=== PATIENT | male | born 1945 | race Caucasian/White ===

== ENCOUNTER 2023-07-11 14:12 | Observation (INO) | payer MEDICARE, SELFPAY ==
[2023-07-11] VITALS (73 sets, daily range): BP systolic 114–172; BP diastolic 53–132; PULSE 0–75; RESP 6–30; TEMP 35.8–36.5; O2SAT 96–98
--- NOTE | 2023-07-11 14:15 | RT.EKG_ITS ---
APPROVED REPORT Exam: Resting ECG Reason for Exam: ams Patient Location: E HR:53 bpm ECG Measurements Heart Rate 53 AXIS VT 181 P 36 QRSd 168 QRS -50 QT 496 T 66 QTc 465 Conclusion Sinus bradycardia LBBB no priors for comparison
--- NOTE | 2023-07-11 14:15 | DI.CT_ITS ---
Exam(s) CT ABDOMEN PELVIS W EXAM: CT ABDOMEN PELVIS W CLINICAL HISTORY: trauma. TECHNIQUE: Imaging Protocol: Axial computed tomography images with coronal and sagittal reformatted images were created and reviewed CONTRAST MATERIAL: Intravenous: Omnipaque 350 Contrast volume:100 ml Oral: no COMPARISON: No exams were available for comparison FINDINGS: ABDOMEN and PELVIS: Exam limited by motion. Lung Bases: Tiny right bilateral pleural effusions.. Basilar atelectasis. Liver: Mild fatty infiltration. No measurable mass. Heart is moderately. Coronary artery calcific ations. Enlarged. Gallbladder and biliary tract: No radiodense calculus or dilation. Pancreas: Normal density. No abnormal calcifications or inflammatory process. No evidence of mass. Spleen: Normal. Kidneys: Normal size, contour and axis. No radiodense stones. No obstructive uropathy. No suspicious masses seen. Adrenal glands: No masses seen. Vasculature: Abdominal aorta non-dilated. Moderate to severe atherosclerotic changes. Soft tissues: Unremarkable. Bladder: No posttraumatic abnormality. Wall thickening on the left side of the bladder. No calculi. Bowel: Moderate to increased stool. No obstruction. No bowel wall thickening. No evidence of appen dicitis. Peritoneal cavity: No ascites. No focal collection or mesenteric inflammatory response. Bones: Degenerative changes in the spine as well as mild scoliosis. No acute posttraumatic abnormali ty. Reproductive organs: Enlarged prostate. Lymph nodes: Unremarkable. IMPRESSION:: No acute posttraumatic abnormality. Focal wall thickening along left side of the bladder. Cystoscopy could be obtained for further evalu ation RADIATION DOSE DELIVERED: Total DLP DATA REPOSITORY: All CT scans at this facility are submitted to the National Radiology Data Registry (NRDR) Dose Index Registry (DIR) with the [employer] (ACR). RADIATION OPTIMIZATION: All CT scans at this facility use at least one of these dose optimization te chniques: automated exposure control; mA and/or kV adjustment per patient size (includes targeted exa ms where dose is matched to clinical indication); or iterative reconstruction.
--- NOTE | 2023-07-11 14:15 | DI.RAD_ITS ---
Exam(s) XR HIP PELVIS ADULT BL EXAM: XR HIP PELVIS ADULT BL CLINICAL HISTORY: trauma. TECHNIQUE: 2D digital imaging was performed. Three views. COMPARISON: CT CT ABDOMEN PELVIS W from 07/11/2023 FINDINGS: BONES: No acute fracture is present. No bony destructive lesion is seen. JOINTS: No dislocation present. SOFT TISSUE: Wrist within bladder in lower ureters related to recent CT. IMPRESSION: no acute abnormality. DATA REPOSITORY: RADIATION DOSE DELIVERED:
--- NOTE | 2023-07-11 14:19 | DI.CT_ITS ---
Exam(s) CT HEAD CERVICAL SPINE WO EXAM: CT HEAD CERVICAL SPINE WO CLINICAL HISTORY: trauma. TECHNIQUE: Imaging Protocol: Axial computed tomography images with coronal and sagittal reformatted images were created and reviewed COMPARISON: No exams were available for comparison FINDINGS: Head CT Ventricles and Extra axial spaces: Normal in size and morphology for the patient's age. Hemorrhage: None. Cerebral parenchyma: No evidence of mass or acute infarct. White matter changes of small vessel di sease. Mild atrophy. Midline shift: None. Brainstem/Cerebellum: Normal. Calvarium: Normal. Visualized Paranasal sinuses/Mastoids: Clear. Soft tissues: Unremarkable. Cervical Spine CT BONES: Vertebral body heights are maintained. Alignment is normal. There is no evidence of acute frac ture. Degenerative disc changes and facet degenerative changes are seen . SOFT TISSUES: No paraspinal hematoma. The airway appears intact. No pneumothorax is seen at the lung apices. IMPRESSION: Head CT: No acute abnormality. C-spine CT: Degenerative changes, no acute abnormality. RADIATION DOSE DELIVERED: Total DLP DATA REPOSITORY: All CT scans at this facility are submitted to the National Radiology Data Registry (NRDR) Dose Index Registry (DIR) with the [employer] (ACR). RADIATION OPTIMIZATION: All CT scans at this facility use at least one of these dose optimization te chniques: automated exposure control; mA and/or kV adjustment per patient size (includes targeted exa ms where dose is matched to clinical indication); or iterative reconstruction.
--- NOTE | 2023-07-11 14:21 | W.ED.GENAD ---
Discharge Plan Discharge Details Chief Complaint: Fall/Non TraumaCriteria Primary Care Provider: Unknown,Unknown ED Provider: Shantal Taylor Home Meds and New Rx's Prescriptions: No Action atorvastatin 20 mg tablet 20 mg PO DAILY metoprolol succinate 100 mg capsule,sprinkle,ER 24hr 100 mg PO DAILY pramipexole 0.25 mg tablet 0.25 mg PO DAILY divalproex [Depakote] 500 mg tablet,delayed release (DR/EC) 500 mg PO BID divalproex [Depakote] 250 mg tablet,delayed release (DR/EC) 250 mg PO BID amlodipine 5 mg tablet 5 mg PO DAILY quetiapine [Seroquel] 100 mg tablet 100 mg PO BID clopidogrel [Plavix] 75 MG tablet 75 mg PO DAILY Patient Comments: 09/07/16-RX'D BY DR HUGHES. aspirin [Aspir-81] 81 MG tablet,delayed release (DR/EC) 81 mg PO DAILY acetaminophen 325 MG capsule 325 mg PO Q4H PRN Medical Decision Making Emergent evaluation of altered mental status. Patient has dementia and is unable to provide any additional information. I have spoken with the who is very concerned that his status is changed significantly over the last few days. He has obvious signs of trauma on exam. Initial concerns include intracranial process, metabolic derangement, infectious etiology. We will get blood work, CT imaging to evaluate. 1450: nurses reporting clotting issue with blood draws from IV 1750: CT imaging including is unremarkable for any acute traumatic process. Urinalysis is unremarkable for infection. The patient does have some new thrombocytopenia. At this time unable to assess the patient's gait as he is not directable and is not following commands. The report from the facility is that he is not safely ambulatory. Given that his worsening of status, it is not safe to send the patient back to the facility. will admit to the hospital. Medical Records Medical records reviewed: Yes I reviewed the patient's medical records. Lab Data Lab results reviewed: Yes I reviewed the patient's lab results. ECG Data Attestation: I personally reviewed and interpreted this ECG (s) as follows: Prior ECG tracings: not available for review Interpretation: sinus yosef LBBB, no prior for comparison HPI General Date/Time Provider Initiated Documentation: 07/11/23 14:18. HPI Narrative: 77-year-old gentleman with past medical history of frontotemporal dementia presents for evaluation of altered mental status from his halfway. Patient has dementia, but at baseline is ambulatory and oriented. He was seen on by his who reports that at that time he seemed to be very confused and not himself. The home reports that he is normally ambulatory, but for the last few days he has only been able to walk with a walker. Today he is unable to walk at all. He fell last night. This was an unwitnessed fall. But they did notice bruising today. Related Data Home Medications Medication Instructions Recorded Confirmed clopidogrel 75 mg tablet (Plavix) 75 mg PO DAILY 09/18/16 07/11/23 aspirin 81 mg tablet,delayed 81 mg PO DAILY 12/08/16 07/11/23 release (Aspir-) acetaminophen 325 mg capsule 325 mg PO Q4H PRN 05/19/17 07/11/23 amlodipine 5 mg tablet 5 mg PO DAILY 06/11/23 07/11/23 atorvastatin 20 mg tablet 20 mg PO DAILY 06/11/23 07/11/23 divalproex 250 mg tablet,delayed 250 mg PO BID 06/11/23 07/11/23 release (Depakote) divalproex 500 mg tablet,delayed 500 mg PO BID 06/11/23 07/11/23 release (Depakote) metoprolol succinate 100 mg 100 mg PO DAILY 06/11/23 07/11/23 capsule sprinkle, ext. 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 Recurrent major depressive disorder RLS (restless legs syndrome) Hearing loss Insomnia Hypothyroidism Hypertension Mixed hyperlipidemia History of behavioral and mental health problems Abnormal EKG Left bundle-branch block Family history of prostate cancer Acute hyponatremia Hypomania Surgical History Vasectomy Stent placement 09/10/16-[facility] Arthroplasty of knee right Appendectomy Family History Mother Diabetes Essential hypertension Father Diabetes Neoplasm PROSTATE Sister Diabetes Neoplasm MULTI-MYELOMA Sister Diabetes Essential hypertension Sister No problems noted. Brother Heart disease Grandfather Neoplasm STOMACH Grandfather Ruptured appendix Grandmother No problems noted. Grandmother No problems noted. Daughter No problems noted. Daughter No problems noted. Social History Smoking/Tobacco Use Status: Former Tobacco Use Smoking risk assessment performed?: Yes Alcohol Intake: former Drug use: Current Sobriety Substance use type: does not use Housing: assisted living facility Do you feel safe in your relationship?: Yes Exam Narrative Exam Narrative: Review of Systems: All systems reviewed & are unremarkable except as noted in HPI and below: CONSTITUTIONAL: Alert , difficulty with following simple commands Well-developed HEENT: Bruising to the left forehead noted, no skull deformity EYES: PERRL, no conjunctival injection EARS: no external abnormality NOSE nares patent MOUTH Moist MM NECK: Symmetric, trachea midline, No thyromegaly THROAT oropharynx clear CVS: RRR, No murmurs or gallops. Peripheral pulses 2+ and equal in all extremities Brisk capillary refill in all extremities. No peripheral edema Right chest wall with bruising around the areola, no crepitus appreciated RESP: Unlabored respiratory effort, Clear to auscultation bilaterally No wheezes rales or rhonchi GI: Soft, Nontender, Nondistended, No organomegaly MSK: Extremities with full range of motion, no deformity or TTP Right scapular area with 3 x 3 area of abrasion and contusion SKIN: Warm, Dry. No rashes or lesions. NEURO: No focal neurologic deficits. 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
[2023-07-11 14:54] LABS: Ammonia 12 umol/L (11-32)
[2023-07-11 15:04] LABS: ALT 58 U/L (16-63); AST 59 U/L (15-37); Albumin 3.4 g/dL (3.4-5.0); Alkaline Phosphatase 102 U/L (46-116); Anion Gap 6.7 mmol/L (3-11); BUN 40 mg/dL (7-18); Bilirubin, Total 0.8 mg/dL (0.2-1.0); CO2 27.3 mmol/L (21.0-32.0); CREATININE 1.7 mg/dL (0.70-1.30); Calcium 9.3 mg/dL (8.5-10.1); Chloride 101 mmol/L (98-107); Estimated GFR 41.01 (mL/min/1.73m2); Glucose 102 mg/dL (74-106); Magnesium 2.5 mg/dL (1.8-2.4); Potassium 4.5 mmol/L (3.5-5.1); Sodium 135 mmol/L (136-145); TSH (W/Ref FT4) 3.58 uIU/mL (0.36-3.74); Total Protein 7.6 g/dL (6.4-8.2); Troponin I < 50 ng/L (<or=60)
[2023-07-11 15:21] LABS: Abs Immature Grans 0.04 10^3/uL (0.0-0.06); Absolute Basophil Count 0.01 10^3/uL (0.0-0.2); Absolute Eosinophil Count 0.11 10^3/uL (0.0-0.7); Absolute Lymphocyte Count 1.65 10^3/uL (1.2-3.4); Absolute Monocyte Count 1.76 10^3/uL (0.1-0.8); Absolute Neutrophil Count 4.47 10^3/uL (1.2-6.7); Basophils % 0.1; Eosinophils % 1.4; HCT 39.5 % (40.0-50.0); HGB 13.2 g/dL (13.5-17.5); Immature Grans % 0.5; Lymphocytes % 20.5; MCH 31.1 pg (27.0-33.0); MCHC 33.4 % (32.0-36.0); MCV 93 fL (80-95); MPV 10.5 fL (8.0-11.0); Monocytes % 21.9; Neutrophils % 55.6; RBC 4.25 10^6/uL (4.36-5.78); RDW 13.4 % (11.8-14.1); RDW-SD 45.8 fL; WBC 8.04 10^3/uL (4.4-10.8)
--- NOTE | 2023-07-11 15:26 | NUR.NOTE ---
Nursing Note: Beatriz called and gave us permission to speak with PT's medicare specialist Skyla Aden. 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
[2023-07-11 15:34] LABS: INR 1.1 (0.9-1.1); Prothrombin Time 11.3 sec (9.1-11.1)
[2023-07-11 15:51] LABS: Diff Comment Agrees w/ Instrument; Platelet Count 87 10^3/uL (130-400); RBC Morphology Normal
[2023-07-11 16:31] LABS: Source Nasal/Nares
[2023-07-11] MEDS: Omnipaque 350 MG/ML 100 ML BTL IJ (16:34)
[2023-07-11] MEDS: Normal Saline - Diluent 50 ML VIAL IJ (16:35)
[2023-07-11 17:03] LABS: COVID-19 PCR Negative (Negative)
[2023-07-11] MEDS: Lidocaine 2% Jelly 11 ML SYR (17:15)
[2023-07-11 17:18] LABS: Bilirubin Negative (Negative); Blood Trace-intact (Negative); Clarity Clear (Clear); Glucose Negative (Negative); Ketones Trace mg/dL (Negative); Leukocyte Esterase Negative (Negative); Nitrite Negative (Negative); pH 5.5 (5-8)
--- NOTE | 2023-07-11 17:20 | DI.VRAD_ITS ---
PROCEDURE INFORMATION: Exam: CT Head Without Contrast Exam date and time: 07/11/2023 4:28 PM Age: 77 years old Clinical indication: Injury or trauma; Fall; Blunt trauma (contusions or hematomas) TECHNIQUE: Imaging protocol: Computed tomography of the head without contrast. COMPARISON: No relevant prior studies available. FINDINGS: Brain: There is diffuse cerebral atrophy concordant with the patient's age. Chronic small vessel deep white matter ischemic disease is suggested by areas of patchy white matter low attenuation. No intracranial hemorrhage. No acute large territory CVA. No mass. No acute edema. No acute intracranial abnormality. Cerebral ventricles: No ventriculomegaly. Paranasal sinuses: Visualized sinuses are unremarkable. No fluid levels. Mastoid air cells: Visualized mastoid air cells are well aerated. Bones/joints: Unremarkable. No acute fracture. Soft tissues: Unremarkable. IMPRESSION: 1. No acute intracranial abnormality. 2. Age-related atrophy and chronic small vessel deep white matter ischemic features. 3. No intracranial hemorrhage. 4. No skull fracture. PROCEDURE INFORMATION: Exam: CT Cervical Spine Without Contrast Exam date and time: 07/11/2023 4:28 PM Age: 77 years old Clinical indication: Injury or trauma; Fall; Blunt trauma (contusions or hematomas) TECHNIQUE: Imaging protocol: Computed tomography of the cervical spine without contrast. COMPARISON: CR CHEST 2 VIEWS PA,LAT 02/26/2017 5:05 PM FINDINGS: Bones/joints: No acute fracture. Straightening of the normal cervical lordosis. No subluxation. No significant disc bulge or herniation. No severe spinal canal stenosis. No significant neural foraminal narrowing. Lungs: Lung apices are normal. Soft tissues: Unremarkable. IMPRESSION: 1. No acute findings. 2. Multilevel degenerative disc and joint disease. No acute fracture or dislocation. Dictated and Authenticated by: Chin Walker MD. Ordering:[facility] Brandon Rosado MD
--- NOTE | 2023-07-11 17:26 | DI.VRAD_ITS ---
PROCEDURE INFORMATION: Exam: XR Pelvis Exam date and time: 07/11/2023 4:57 PM Age: 77 years old Clinical indication: Injury or trauma; Other: Unspecified; Blunt trauma (contusions or hematomas); Bilateral; Hip TECHNIQUE: Imaging protocol: Radiologic exam of the pelvis. Views: 3 or more views. COMPARISON: CT ABDOMEN PELVIS W 07/11/2023 4:45 PM FINDINGS: Bones/joints: Osteopenia. No acute fracture. No diastasis. Lower lumbar spine degenerative disease. No evidence of hip fracture or dislocation. Soft tissues: Soft tissues of the pelvic and hip regions are unremarkable. Organs: Urinary bladder contains contrast from an earlier CT. IMPRESSION: 1. No pelvic fracture or diastasis. 2. Degenerative lower lumbar spine disease. Dictated and Authenticated by: Chin Walker MD. Ordering:PAOLA Rosado MD
[2023-07-11 17:30] LABS: Bacteria Negative HPF (Negative); C & S Indicated? No; Casts 0-2 Hyaline LPF (Negative); Crystals Negative HPF (Negative); Epithelial Cells Rare HPF (Negative); Mucus Trace (Negative); WBC 0-2 HPF (0-5)
--- NOTE | 2023-07-11 17:32 | DI.VRAD_ITS ---
PROCEDURE INFORMATION: Exam: CT Abdomen And Pelvis With Contrast Exam date and time: 07/11/2023 4:45 PM Age: 77 years old Clinical indication: Injury or trauma; Fall and other: Unspecified; Blunt; Generalized TECHNIQUE: Imaging protocol: Computed tomography of the abdomen and pelvis with contrast. COMPARISON: CR CHEST 2 VIEWS PA,LAT 02/26/2017 5:05 PM FINDINGS: Lungs: Minor posterior bilateral lung base atelectasis. Pleural spaces: Bilateral small pleural effusions which are nonspecific in appearance. Attenuation coefficients suggests that these are simple fluid collections. Heart: Moderate cardiac enlargement. No pericardial effusion. Severe right coronary artery atherosclerotic calcium is visible. Liver: Diffuse moderate fatty liver infiltration. No focal hepatic lesions. Gallbladder and bile ducts: The gallbladder is normal in size and shape. No stones or inflammatory changes. Pancreas: The pancreas is normal in contour and attenuation. Spleen: The spleen is normal in size, contour and attenuation. Adrenal glands: The adrenal glands are normal in size and contour bilaterally. Kidneys and ureters: The kidneys bilaterally are unremarkable. Normal attenutation. No hydronephrosis. No calculi. Stomach and bowel: Gastric morphology is unremarkable. No edema. No gastric outlet obstruction.Small bowel loops are normal in course and caliber. There is no mucosal edema or bowel wall thickening. No obstructive features.The colon contains formed fecal material. There is no bowel wall thickening. No inflammatory features. No obstruction. Appendix: No evidence of appendicitis. Intraperitoneal space: No free fluid. No free air. Vasculature: Atherosclerotic aortoiliac calcium without acute features. Lymph nodes: Unremarkable. No enlarged lymph nodes. Urinary bladder: No acute features of the urinary bladder. There is asymmetric thickening of the left urinary bladder wall. See series 5: Image 746. Can not exclude a focal bladder wall irregularity or an neoplastic focus. This is 6 mm in thickness and 1.9 cm AP. A bladder ultrasound may be helpful. Correlation with urinalysis is recommended. Cystoscopy may ultimately be warranted. Reproductive: Moderate prostate enlargement. Recommend clinical correlation. Bones/joints: No acute skeletal changes. Bony pelvis is intact. Hips are unremarkable bilaterally. Degenerative lumbosacral spine features. No acute traumatic disruption. Multilevel lumbar moderate spinal stenosis. Soft tissues: Minor fat containing umbilical hernia. No acute change. Abdominal wall soft tissues without john hematoma, foreign body, or emphysema. IMPRESSION: 1. No acute findings within the abdomen or pelvis. 2. Bilateral minor simple pleural effusions. 3. Cardiomegaly. 4. Fatty liver. 5. Degenerative lumbosacral spine. 6. Asymmetric left urinary bladder wall focal thickening. Further workup is recommended. Correlation with urinalysis. Bladder ultrasound may be helpful. Cystoscopic evaluation may be warranted. Dictated and Authenticated by: Chin Walker MD. Ordering:PAOLA Rosado MD
[2023-07-11] MEDS: Atorvastatin 20 MG TAB PO (22:40)
[2023-07-11] MEDS: QUEtiapine 100 MG TAB PO (22:40)
[2023-07-11] MEDS: Divalproex 500 MG TABEC PO (22:45)
[2023-07-11] MEDS: Normal Saline Flush 10 ML SYR IVP (22:53)
[2023-07-11] MEDS: Divalproex 250 MG TABEC PO (23:04)
--- NOTE | 2023-07-11 23:23 | W.PM.HP.N ---
Date of service: 07/11/23 Time of Service: 23:23 Assessment and Plan Assessment and plan (1) Altered mental status: Start date: 07/11/23 Assessment and plan: This is a 77-year-old gentleman with chronic dementia who resides in a assisted presenting with increased falls and altered mental status. There is no obvious infection or other decompensation other than patient being dry. He will be observed overnight with IV hydration and have PT and OT evaluate for safety to return to the assisted. He may simply have progression of his disease. There is no obvious injury from his falls recently with imaging. He is a full code this may be readdressed with the . Qualifiers: Altered mental status type: delirium Qualified Code(s): R41.0 - Disorientation, unspecified (2) KERVIN (acute kidney injury): Start date: 07/11/23 Status: Acute Assessment and plan: Patient appears to be slightly dehydrated and will have IV hydration overnight with follow-up labs in the morning. Encourage oral intake. (3) Frontotemporal dementia: Status: Chronic Assessment and plan: Progressive disease with patient possibly now transitioning to higher level of care from the assisted if he is not improved with IV hydration. History of Present Illness History of Present Illness Chief Complaint: Increasing confusion with falls Narrative: This is a 77-year-old male patient who resides at a alf last seen by his 3 days prior to admission with increased confusion and not himself according to the . Patient not able to offer history. He is usually ambulatory without assistive devices but recent has been walking only with a walker and the day of admission was not working at all. He did fall the night prior to admission. In the ED evaluation was negative for any acute fractures but he did appear to be slightly dehydrated with increased creatinine from his baseline. He was admitted for IV hydration and observation with PT and OT to evaluate as to safety to return to the assisted. He is slightly agitated at times and fidgety but cooperative with one-on-one care. He is a full code. Review of Systems Narrative: 13 point review of systems otherwise unobtainable with patient dementia. [facility] All Active Problems (Updated 07/11/23 @ 23:44 by Osvaldo Santos) KERVIN (acute kidney injury) (Acute) 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) of both ears (Acute) Acute pericarditis (Acute ~1968) Medical History Impaired fasting glucose Intertrigo Right-sided chest pain Altered mental status Left arm pain Ventricular ectopy Atherosclerotic heart disease of [place] coronary artery without angina pectoris Recurrent major depressive disorder RLS (restless legs syndrome) Hearing loss Insomnia Hypothyroidism Hypertension Mixed hyperlipidemia History of behavioral and mental health problems Abnormal EKG Left bundle-branch block Family history of prostate cancer Acute hyponatremia Hypomania Surgical History Vasectomy Stent placement 09/10/16-[facility] Arthroplasty of knee right Appendectomy Family History Mother Diabetes Essential hypertension Father Diabetes Neoplasm PROSTATE Sister Diabetes Neoplasm MULTI-MYELOMA Sister Diabetes Essential hypertension Sister No problems noted. Brother Heart disease Grandfather Neoplasm STOMACH Grandfather Ruptured appendix Grandmother No problems noted. Grandmother No problems noted. Daughter No problems noted. Daughter No problems noted. Social History Smoking/Tobacco Use Status: Former Tobacco Use Smoking risk assessment performed?: Yes Alcohol Intake: former Drug use: Current Sobriety Substance use type: does not use Housing: assisted living facility Do you feel safe in your relationship?: Yes Meds Allergies and Home Medications Allergies Allergy/AdvReac Type Severity Reaction Status Date / Time No Known Allergies Allergy Unverified 07/11/23 14:25 Home Medications Medication Instructions Recorded Confirmed Type clopidogrel 75 mg tablet (Plavix) 75 mg PO DAILY 09/18/16 07/11/23 History aspirin 81 mg tablet,delayed 81 mg PO DAILY 12/08/16 07/11/23 History release (Aspir-) acetaminophen 325 mg capsule 325 mg PO Q4H PRN 05/19/17 07/11/23 History amlodipine 5 mg tablet 5 mg PO DAILY 06/11/23 07/11/23 History atorvastatin 20 mg tablet 20 mg PO DAILY 06/11/23 07/11/23 History divalproex 250 mg tablet,delayed 250 mg PO BID 10/20/23 11/19/23 History release (Depakote) divalproex 500 mg tablet,delayed 500 mg PO BID 06/11/23 07/11/23 History release (Depakote) metoprolol succinate 100 mg 100 mg PO DAILY 06/11/23 07/11/23 History capsule sprinkle, ext. release 24 hr pramipexole 0.25 mg tablet 0.25 mg PO DAILY 06/11/23 07/11/23 History quetiapine 100 mg tablet (Seroquel) 100 mg PO BID 07/06/23 07/11/23 History Exam Narrative Exam Narrative: General: Patient appears appropriate for age, cooperative and recognizes me as a physician. He is otherwise not oriented to person, place or time. He is in no acute distress. He is slightly fidgety. HEENT: Normocephalic, eyes pupils equal react light symmetrically, extraocular intact and sclera anicteric. Oropharynx with dry mucosa. Neck: Supple without JVD. Back: Normal posture without CVA tenderness. Lungs: Fair aeration clear to auscultation percussion. No focalizing rales or rhonchi. Abdomen: Scaphoid contour, soft nontender to palpation with no palpable hepatosplenomegaly. Bowel sounds positive all quadrants. Genitalia/rectal: Exam deferred. Extremities: Without clubbing, cyanosis or pitting edema. Peripheral pulses intact. Skin: Normal color, warm and dry. Neuro: Cranial nerves II through XII gross intact, no focal motor deficits. No tremor. Psych: Slightly agitated at times and fidgety otherwise normal affect and mood. No abnormal thought processes manifested to the patient at times has increased confusion and wanders in conversation. Remote and recent memory appear to be in deficit. Results Imaging Imaging Studies: Exam: XR Pelvis Exam date and time: 07/11/2023 4:57 PM Age: 77 years old Clinical indication: Injury or trauma; Other: Unspecified; Blunt trauma (contusions or hematomas); Bilateral; Hip TECHNIQUE: Imaging protocol: Radiologic exam of the pelvis. Views: 3 or more views. COMPARISON: CT ABDOMEN PELVIS W 07/11/2023 4:45 PM FINDINGS: Bones/joints: Osteopenia. No acute fracture. No diastasis. Lower lumbar spine degenerative disease. No evidence of hip fracture or dislocation. Soft tissues: Soft tissues of the pelvic and hip regions are unremarkable. Organs: Urinary bladder contains contrast from an earlier CT. IMPRESSION: 1. No pelvic fracture or diastasis. 2. Degenerative lower lumbar spine disease. Exam: CT Abdomen And Pelvis With Contrast Exam date and time: 07/11/2023 4:45 PM Age: 77 years old Clinical indication: Injury or trauma; Fall and other: Unspecified; Blunt; Generalized TECHNIQUE: Imaging protocol: Computed tomography of the abdomen and pelvis with contrast. COMPARISON: CR CHEST 2 VIEWS PA,LAT 02/26/2017 5:05 PM FINDINGS: Lungs: Minor posterior bilateral lung base atelectasis. Pleural spaces: Bilateral small pleural effusions which are nonspecific in appearance. Attenuation coefficients suggests that these are simple fluid collections. Heart: Moderate cardiac enlargement. No pericardial effusion. Severe right coronary artery atherosclerotic calcium is visible. Liver: Diffuse moderate fatty liver infiltration. No focal hepatic lesions. Gallbladder and bile ducts: The gallbladder is normal in size and shape. No stones or inflammatory changes. Pancreas: The pancreas is normal in contour and attenuation. Spleen: The spleen is normal in size, contour and attenuation. Adrenal glands: The adrenal glands are normal in size and contour bilaterally. Kidneys and ureters: The kidneys bilaterally are unremarkable. Normal attenutation. No hydronephrosis. No calculi. Stomach and bowel: Gastric morphology is unremarkable. No edema. No gastric outlet obstruction.Small bowel loops are normal in course and caliber. There is no mucosal edema or bowel wall thickening. No obstructive features.The colon contains formed fecal material. There is no bowel wall thickening. No inflammatory features. No obstruction. Appendix: No evidence of appendicitis. Intraperitoneal space: No free fluid. No free air. Vasculature: Atherosclerotic aortoiliac calcium without acute features. Lymph nodes: Unremarkable. No enlarged lymph nodes. Urinary bladder: No acute features of the urinary bladder. There is asymmetric thickening of the left urinary bladder wall. See series 5: Image 746. Can not exclude a focal bladder wall irregularity or an neoplastic focus. This is 6 mm in thickness and 1.9 cm AP. A bladder ultrasound may be helpful. Correlation with urinalysis is recommended. Cystoscopy may ultimately be warranted. Reproductive: Moderate prostate enlargement. Recommend clinical correlation. Bones/joints: No acute skeletal changes. Bony pelvis is intact. Hips are unremarkable bilaterally. Degenerative lumbosacral spine features. No acute traumatic disruption. Multilevel lumbar moderate spinal stenosis. Soft tissues: Minor fat containing umbilical hernia. No acute change. Abdominal wall soft tissues without john hematoma, foreign body, or emphysema. IMPRESSION: 1. No acute findings within the abdomen or pelvis. 2. Bilateral minor simple pleural effusions. 3. Cardiomegaly. 4. Fatty liver. 5. Degenerative lumbosacral spine. 6. Asymmetric left urinary bladder wall focal thickening. Further workup is recommended. Correlation with urinalysis. Bladder ultrasound may be helpful. Cystoscopic evaluation may be warranted. Exam: CT Head Without Contrast Exam date and time: 07/11/2023 4:28 PM Age: 77 years old Clinical indication: Injury or trauma; Fall; Blunt trauma (contusions or hematomas) TECHNIQUE: Imaging protocol: Computed tomography of the head without contrast. COMPARISON: No relevant prior studies available. FINDINGS: Brain: There is diffuse cerebral atrophy concordant with the patient's age. Chronic small vessel deep white matter ischemic disease is suggested by areas of patchy white matter low attenuation. No intracranial hemorrhage. No acute large territory CVA. No mass. No acute edema. No acute intracranial abnormality. Cerebral ventricles: No ventriculomegaly. Paranasal sinuses: Visualized sinuses are unremarkable. No fluid levels. Mastoid air cells: Visualized mastoid air cells are well aerated. Bones/joints: Unremarkable. No acute fracture. Soft tissues: Unremarkable. IMPRESSION: 1. No acute intracranial abnormality. 2. Age-related atrophy and chronic small vessel deep white matter ischemic features. 3. No intracranial hemorrhage. 4. No skull fracture. PROCEDURE INFORMATION: Exam: CT Cervical Spine Without Contrast Exam date and time: 07/11/2023 4:28 PM Age: 77 years old Clinical indication: Injury or trauma; Fall; Blunt trauma (contusions or hematomas) TECHNIQUE: Imaging protocol: Computed tomography of the cervical spine without contrast. COMPARISON: CR CHEST 2 VIEWS PA,LAT 02/26/2017 5:05 PM FINDINGS: Bones/joints: No acute fracture. Straightening of the normal cervical lordosis. No subluxation. No significant disc bulge or herniation. No severe spinal canal stenosis. No significant neural foraminal narrowing. Lungs: Lung apices are normal. Soft tissues: Unremarkable. IMPRESSION: 1. No acute findings. 2. Multilevel degenerative disc and joint disease. No acute fracture or dislocation. Labs 07/11/23 15:10 07/11/23 14:30 Labs: Laboratory Results - last 24 hr 07/11/23 07/11/23 07/11/23 14:18 14:30 15:10 WBC Cancelled 8.04 RBC Cancelled 4.25 L Hgb Cancelled 13.2 L Hct Cancelled 39.5 L MCV Cancelled 93 MCH Cancelled 31.1 MCHC Cancelled 33.4 RDW Cancelled 13.4 Plt Count Cancelled 87 L MPV Cancelled 10.5 Immature Gran % Cancelled 0.5 Neutrophils % Cancelled 55.6 Band Neutrophils % Cancelled Lymphocytes % Cancelled 20.5 Atypical Lymphs % Cancelled Monocytes % Cancelled 21.9 Eosinophils % Cancelled 1.4 Basophils % Cancelled 0.1 Metamyelocytes % Cancelled Myelocytes % Cancelled Promyelocytes % Cancelled Other Cells % Cancelled Nucleated RBC % Cancelled 0.0 Absolute Neutrophils Cancelled 4.47 Absolute Lymphocytes Cancelled 1.65 Absolute Monocytes Cancelled 1.76 H Absolute Eosinophils Cancelled 0.11 Absolute Basophils Cancelled 0.01 RBC Morphology Cancelled Normal Polychromasia Cancelled Hypochromasia Cancelled Poikilocytosis Cancelled Basophilic Stippling Cancelled Anisocytosis Cancelled Microcytosis Cancelled Macrocytosis Cancelled Spherocytes Cancelled Tear Drop Cells Cancelled Ovalocytes Cancelled Stomatocytes Cancelled Croft-Bettles Bodies Cancelled [place] Cells/Echinocytes Cancelled Acanthocytes (Spur) Cancelled Schistocytes Cancelled PT Cancelled 11.3 H INR Cancelled 1.1 Sodium 135 L Potassium 4.5 Chloride 101 Carbon Dioxide 27.3 Anion Gap 6.7 BUN 40 H Creatinine 1.7 H Est GFR (CKD-EPI 2020) 41.01 Glucose 102 Calcium 9.3 Magnesium 2.5 H Total Bilirubin 0.8 AST 59 H ALT 58 Alkaline Phosphatase 102 Ammonia 12 Troponin I < 50 Total Protein 7.6 Albumin 3.4 TSH Cancelled 3.58 Urine Color Urine Clarity Urine pH Ur Specific [place] Urine Protein Urine Ketones Urine Blood Urine Nitrite Urine Bilirubin Urine Urobilinogen Ur Leukocyte Esterase Urine RBC Urine WBC Ur Epithelial Cells Urine Crystals Urine Bacteria Urine Casts Urine Mucus Ur Culture Indicated? Urine Glucose COVID-19 Source SARS-CoV-2 (PCR) 07/11/23 07/11/23 16:27 17:12 WBC RBC Hgb Hct MCV MCH MCHC RDW Plt Count MPV Immature Gran % Neutrophils % Band Neutrophils % Lymphocytes % Atypical Lymphs % Monocytes % Eosinophils % Basophils % Metamyelocytes % Myelocytes % Promyelocytes % Other Cells % Nucleated RBC % Absolute Neutrophils Absolute Lymphocytes Absolute Monocytes Absolute Eosinophils Absolute Basophils RBC Morphology Polychromasia Hypochromasia Poikilocytosis Basophilic Stippling Anisocytosis Microcytosis Macrocytosis Spherocytes Tear Drop Cells Ovalocytes Stomatocytes Croft-Bettles Bodies Breonna Cells/Echinocytes Acanthocytes (Spur) Schistocytes PT INR Sodium Potassium Chloride Carbon Dioxide Anion Gap BUN Creatinine Est GFR (CKD-EPI 2020) Glucose Calcium Magnesium Total Bilirubin AST ALT Alkaline Phosphatase Ammonia Troponin I Total Protein Albumin TSH Urine Color Yellow Urine Clarity Clear Urine pH 5.5 Ur Specific [place] 1.020 Urine Protein Negative Urine Ketones Trace H Urine Blood Trace-intact H Urine Nitrite Negative Urine Bilirubin Negative Urine Urobilinogen 1.0 H Ur Leukocyte Esterase Negative Urine RBC 5-10 H Urine WBC 0-2 Ur Epithelial Cells Rare Urine Crystals Negative Urine Bacteria Negative Urine Casts 0-2 Hyaline Urine Mucus Trace Ur Culture Indicated? No Urine Glucose Negative COVID-19 Source Nasal/Nares SARS-CoV-2 (PCR) Negative Last Vital Signs Temp 36.5 C 07/11/23 14:14 Pulse 55 L 07/11/23 18:16 Resp 19 07/11/23 18:20 BP 117/95 H 07/11/23 18:31 Pulse Ox 96 07/11/23 14:14 Time Spent Time spent with Patient: 55-74 minutes Time was spent: preparing to see the patient(eg.review tests), ordering medications,tests, procedures, indepentently interpreting results and care coordination
[2023-07-12 00:55] VITALS: BP 125/78; PULSE 71; RESP 18; TEMP 37.2; O2SAT 95
[2023-07-12] MEDS: Normal Saline 1,000 ML 125 ML IV ×2 (00:57→10:14)
[2023-07-12] MEDS: Normal Saline Flush 10 ML SYR IVP (00:57)
[2023-07-12 04:44] VITALS: BP 116/71; PULSE 83; RESP 18; TEMP 36.7; O2SAT 96
[2023-07-12 06:54] LABS: HCT 37.5 % (40.0-50.0); HGB 12.5 g/dL (13.5-17.5); MCH 30.9 pg (27.0-33.0); MCHC 33.3 % (32.0-36.0); MCV 93 fL (80-95); MPV 10.1 fL (8.0-11.0); RBC 4.05 10^6/uL (4.36-5.78); RDW 13.2 % (11.8-14.1); RDW-SD 44.8 fL; WBC 7.67 10^3/uL (4.4-10.8)
[2023-07-12 07:10] LABS: Platelet Count 85 10^3/uL (130-400)
[2023-07-12 07:18] LABS: ALT 48 U/L (16-63); AST 48 U/L (15-37); Alkaline Phosphatase 98 U/L (46-116); Anion Gap 10.2 mmol/L (3-11); BUN 33 mg/dL (7-18); Bilirubin, Total 0.6 mg/dL (0.2-1.0); CO2 24.8 mmol/L (21.0-32.0); CREATININE 1.5 mg/dL (0.70-1.30); Calcium 8.8 mg/dL (8.5-10.1); Chloride 102 mmol/L (98-107); Estimated GFR 47.65 (mL/min/1.73m2); Glucose 91 mg/dL (74-106); Magnesium 2.2 mg/dL (1.8-2.4); Potassium 3.7 mmol/L (3.5-5.1); Sodium 137 mmol/L (136-145); Total Protein 6.8 g/dL (6.4-8.2)
[2023-07-12 08:15] VITALS: BP 125/79; PULSE 76; RESP 18; TEMP 36.6; O2SAT 94
--- NOTE | 2023-07-12 09:57 | PDOC.CMIN ---
Date of service: 07/12/23 Time of Service: 09:57 Care Management Initial Assmt Initial Assessment REASON FOR HOSPITALIZATION:: altered mental status PREVIOUS FUNCTIONAL STATUS/SOCIAL/FAMILY SUPPORTS:: Joseph lives in a private [facility] in [place], [place] He is and his lives in [place]. Joseph has children but they do not play an active role in his life. he has dementia and has experienced a significant decline in function and ability in the past few weeks. he needs assistance with ADLs and the assist of 2 with ambulation. CURRENT FUNCTIONAL STATUS:: Joseph was lying in bed visiting with Skyla, his home care provider. He did not participate much in the conversation and when he spoke it was either unintelligible or did not make sense. Skyla stated that Joseph has only been with her for 5-6 weeks. She informed CM that he spent about a year at a psychiatric hospital in [facility] and was just released in May. She has noted a very rapid decline in his ambulation, mentation and speech. His hearing is also impaired. Joseph had a workup for any medical cause of the changes he demonstrated, but everything was negative. Per provider, this is likely his baseline with an increase in agitation and weakness following the move to the AF home from the hospital where he lived for a year. Skyla shared that Joseph was diagnosed with dementia about 7 years ago. ADVANCE DIRECTIVES:: On file. Beatriz POLANCO Has patient been provided with info about the portal/API?: Yes Did the patient sign up for the portal?: No CODE STATUS:: Full Code INSURANCE COVERAGE / FINANCIAL ISSUES:: Medicare [facility] supplement CURRENT HOME/COMMUNITY SERVICES/EQUIPMENT:: [facility] PRIMARY CARE PHYSICIAN:: Wendi Moon in [place] POTENTIAL DISCHARGE NEEDS:: follow up with PCP and plan of care PATIENT/FAMILY EDUCATION NEEDS:: Review of discharge instructions, limitations, activity, follow up plan, discuss [employer] Me [employer] TRANSPORTATION:: via private vehicle with caregiver PLAN:: Anticipate Joseph will return to his [facility] home with a resumption of his caregiver services when medically cleared. He will follow up with his community providers and plan of care and transport with his caregiver. Cm will follow and assess for discharge concerns. PFSH All Active Problems (Updated 07/12/23 @ 17:00 by Chanda Lopez NP) Discharge planning issues (Acute) KERVIN (acute kidney injury) (Acute) 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) of both ears (Acute) Acute pericarditis (Acute ~1968) Medical History Impaired fasting glucose Intertrigo Right-sided chest pain Altered mental status Left arm pain Ventricular ectopy Atherosclerotic heart disease of [place] coronary artery without angina pectoris Recurrent major depressive disorder RLS (restless legs syndrome) Hearing loss Insomnia Hypothyroidism Hypertension Mixed hyperlipidemia History of behavioral and mental health problems Abnormal EKG Left bundle-branch block Family history of prostate cancer Acute hyponatremia Hypomania Surgical History Vasectomy Stent [facility] 09/10/16-[facility] Arthroplasty of knee right Appendectomy Family History Mother Diabetes Essential hypertension Father Diabetes Neoplasm PROSTATE Sister Diabetes Neoplasm MULTI-MYELOMA Sister Diabetes Essential hypertension Sister No problems noted. Brother Heart disease Grandfather Neoplasm STOMACH Grandfather Ruptured appendix Grandmother No problems noted. Grandmother No problems noted. Daughter No problems noted. Daughter No problems noted. Social History Smoking/Tobacco Use Status: Former Tobacco Use Smoking risk assessment performed?: Yes Alcohol Intake: former Drug use: Current Sobriety Substance use type: does not use Housing: assisted living facility Do you feel safe in your relationship?: Yes
[2023-07-12] MEDS: Divalproex 250 MG TABEC PO ×2 (10:42→20:24)
[2023-07-12] MEDS: QUEtiapine 100 MG TAB PO (10:42)
[2023-07-12] MEDS: Metoprolol CR 50 MG TABCR 100 MG PO (10:42)
[2023-07-12] MEDS: Pramipexole 0.25 MG TAB PO (10:43)
[2023-07-12] MEDS: Aspirin E.C. 81 MG TABEC PO (10:43)
[2023-07-12] MEDS: Divalproex 500 MG TABEC PO ×2 (10:43→20:24)
[2023-07-12] MEDS: amLODIPine 5 MG TAB PO (10:43)
[2023-07-12 11:29] VITALS: BP 104/68; PULSE 75; RESP 19; TEMP 37.4; O2SAT 100
--- NOTE | 2023-07-12 15:28 | IN_ITS ---
PT Notes Visit Reasons: Altered mental status, KERVIN Physical Therapy Inpatient Initial Evaluation Date: 07/12/2023 Referring Doctor: Osvaldo Santos MD PT Orders: PT CONSULT: Limited ability Precautions: Fall. Standard. Activity as tolerated. Patient Profile/Admitting Diagnosis: Joseph is a 77-year-old male managed by residential care provider since May 2023 admitted on 07/11/2023 for management of altered mental status acute kidney injury and frontotemporal dementia. PMHX: All Active Problems (Updated 07/11/23 @ 23:44 by Osvaldo Santos) KERVIN (acute kidney injury) (Acute) 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) of both ears (Acute) Acute pericarditis (Acute ~1968) Medical History Impaired fasting glucose Intertrigo Right-sided chest pain Altered mental status Left arm pain Ventricular ectopy Atherosclerotic heart disease of [place] coronary artery without angina pectoris Recurrent major depressive disorder RLS (restless legs syndrome) Hearing loss Insomnia Hypothyroidism Hypertension Mixed hyperlipidemia History of behavioral and mental health problems Abnormal EKG Left bundle-branch block Family history of prostate cancer Acute hyponatremia Hypomania Surgical History Vasectomy Stent [facility] 09/10/16-[facility] Arthroplasty of knee right Appendectomy Social History/Home Situation: Lives in a family residential home with 24/7 caregivers (2 per shift). Able to to cover short distance in roon ambulation to and from bathroom using his walker at baseline. Equipment Owned/DME: FWW Subjective: Per caregiver Skyla, patient had been able to walk to the bathroom on his own using the walker. She feels that there is something different with is breathing and he seems to be much more sleepy at this time. Adds that they will be able to provided the assistance of 2 people for him when he is medically cleared to go back home to her residence/[facility]. Objective: General Observation: Jez Elizondo and Katina ijm care for patientand Caregiver Skyla was talking with Nurse Garcia about patient's status whne PT arrived. Mental Status: Responds to commands/requests 25% of the time. Verbalizations minimal. Able to recall 's name but unable to tell how many kids he has. Pain: No verbalizations nor expression of pain throughout session Vital Signs: Taken by INFORMATION SYSTEMS COORDINATOR immediately before start of walk: BP 138/81 mmHg, HR 69 bpm, 0xygen saturation 95% on RA ROM: Right Upper Extremity: Grossly WFL Left Upper Extremity: Grossly WFL Right Lower Extremity: Grossly WFL Left Lower Extremity: Grossly WFL Strength: Right Upper Extremity: Grossly 4/5 Left Upper Extremity: Grossly 4/5 Right Lower Extremity: Grossly 4/5 Left Lower Extremity: Grossly 4/5 Bed Mobility/Transfers: Required maximal verbal and tactile cueing for movement sequence and AD management Rolling minimal assist of 2 Supine to sit minimal assist of 2 Sit to supine minimal assist of 2 Sit to stand minimal assist of 2 Stand to sit minimal assist of 2 Gait: Facilitated safe and correct performance of level surface ambulation using FWW with moderate assist of PT and minimal assist of INFORMATION SYSTEMS COORDINATOR Caro. Wheelchair follow provided by Caregiver Skyla. Patient covered a distance of 250 feet with 2-3 standing rests to minimize lagging too far behind from walker. Forward propulsion, directional changes, limb advancement and AD management are considerably impaired requiring maximal verbal, tactile, and visual cueing from PT. Freezes when movement is not initiated for him. Impaired awareness of environment, navigation skills significantly impaired. Balance: Static Sitting: Normal Dynamic Sitting: Fair Static Standing: Poor Dynamic Standing: Poor Special Tests: Mobility Limitations Standardized Measure [facility] AM-PAC 6 clicks Basic Mobility Inpatient Short Form: Raw Score: 12 CMS Score: 68% deficit Informed Consent/Education: Patient was instructed in purpose of PT consult and plan of care. Agreeable to proceed with established PT POC to achieve personal goals. ASSESSMENT: Significant decline in walking ability now requiring assistance of 2 to safely navigate obstacles and manage AD. Initiation and cessation of movement significantly impaired, showing signs of parkinsonism. Unable to safely estimate distance of objects from him. Requires maximal cueing for all mobility ADL performance. Residential retirement able to provided assiatnce of 2 for patient as needed. Patient presents with clinical signs and symptoms consistent with current/admitting diagnoses that have resulted to mobility limitations, gait instability, generalized weakness, and overall ADL decline as demonstrated by the following impairment level findings: 1. Impaired sitting/standing balance 2. Impaired activity tolerance 3. Cognitive decline related to dementia Impairments are contributing to the following functional limitations: 1. Decline in bed mobility skills 2. Decline in transfer skills 3. Difficulty with ambulation without assistive device and physical assistance 4. Increased completion time for mobility ADL performance 5. Increased risk for falls 6. Difficulty with managing steps alone safely Patient is assessed as a 25063 high complexity based on the following: History: 77-year-old male with past medical history as indicated above Examination: Demonstrable impairment in strength, balance, and mobility level with underlying impairments and functional limitations as exhibited above as well as deficit score of 68% utilizing the [facility] Mobility Inpatient Short Form Presentation: Evolving Decision Makin moderate complexity Goals: Goals X1 week 1. Supine-Sit contact guard assist 2. Sit-Supine contact guard assist 3. Sit-Stand contact guard assist with FWW 4. Stand-Sit contact guard assist with FWW 5. Bed-Chair contact guard assist with FWW 6. Chair-Bed contact guard assist with FWW 7. Contact guard assist with FWWgait on level surface with use of [] for at least [] feet without report of pain nor dyspnea 8. Fair static and dynamic standing balance/tolerance Plan of Care/Treatment Plan: 1-2x/day, 7 days/week x 1 week. Plan of care has been reviewed with the MIG WELDER providing the service under Physical Therapy direction. Initiate Physical Therapy intervention for pain management as needed, strengthening, bed mobility, transfers, gait, stairs, balance training, and use of assistive device. DISCHARGE RECOMMENDATIONS: [] Home with no services [] [X] Home with services. Patient will benefit from home health PT services in order to progress mobility level using least restrictive assistive ambulatory device, assess home safety, identify additional equipment needs, and establish a functional maintenance program that will increase ability of patient to remain at home. [] Home with outpatient PT [] [] SNF for continued rehabilitation [] [] [facility] [] [] SNF versus LTC based on ability to participate and progress [] TREATMENT CODE/TIME: 71369 x 23 minutes beginning at 15:28 PM. Thank you for the opportunity to participate in the care of this patient. Vijaya Prince PT, DPT, CLT [facility] [place], [place]
[2023-07-12 15:51] VITALS: BP 138/81; PULSE 69; RESP 22; TEMP 36.1; O2SAT 95
--- NOTE | 2023-07-12 16:56 | PGE_ITS ---
Date of Service Date of service: 07/12/23 Time of Service: 16:56 Assessment and Plan Assessment and plan (1) Altered mental status: Assessment and plan: likely at baseline. will stop IV hydration tonight. increase seroquel for better symptom management Qualifiers: Altered mental status type: delirium Qualified Code(s): R41.0 - Disorientation, unspecified (2) KERVIN (acute kidney injury): Status: Acute Assessment and plan: appeared to be slightly dehydrated on admission, had IV hydration overnight, will stop and repeat labs in am. Encourage oral intake. (3) Frontotemporal dementia: Status: Chronic Assessment and plan: Progressive disease with recent move and new environment (was in psychiatric facility for past year, moved 5 weeks ago. increase seroquel. (4) Discharge planning issues: Status: Acute Assessment and plan: anticipate discharge back to home tomorrow with 24 hours care givers as previously arranaged. discussed with Dr Jones Subjective Subjective Interval history since last seen: patient remains pleasantly confused, no oriented. medically and hemodyamically stable Exam Const General: frail appearing Nutritional Appearance: average body habitus Orientation: confused HENRI Head: normal to inspection, normocephalic and atraumatic Mouth: moist mucous membranes abnormal (Slightly dry) Neck Neck: normal visual inspection and full ROM Chest Chest: normal inspection of the chest Resp Effort & Inspection: normal respiratory effort Cardio Rate: regular rate Rhythm: regular rhythm GI Inspection: normal to inspection Palpation: soft Neuro General: patient alert, patient awake, not oriented x3 and patient confused Extrem General: normal to inspection, full ROM and no pedal edema Objective Last Vital Signs Temp 36.1 C L 07/12/23 15:51 Pulse 69 07/12/23 15:51 Resp 22 07/12/23 15:51 BP 138/81 07/12/23 15:51 Pulse Ox 95 07/12/23 15:51 Laboratory Results - last 24 hr 07/11/23 07/11/23 07/12/23 16:27 17:12 06:25 WBC 7.67 RBC 4.05 L Hgb 12.5 L Hct 37.5 L MCV 93 MCH 30.9 MCHC 33.3 RDW 13.2 Plt Count 85 L MPV 10.1 Sodium 137 Potassium 3.7 Chloride 102 Carbon Dioxide 24.8 Anion Gap 10.2 BUN 33 H Creatinine 1.5 H Est GFR (CKD-EPI 2020) 47.65 Glucose 91 Calcium 8.8 Magnesium 2.2 Total Bilirubin 0.6 AST 48 H ALT 48 Alkaline Phosphatase 98 Total Protein 6.8 Albumin 3.0 L Urine Color Yellow Urine Clarity Clear Urine pH 5.5 Ur Specific [place] 1.020 Urine Protein Negative Urine Ketones Trace H Urine Blood Trace-intact H Urine Nitrite Negative Urine Bilirubin Negative Urine Urobilinogen 1.0 H Ur Leukocyte Esterase Negative Urine RBC 5-10 H Urine WBC 0-2 Ur Epithelial Cells Rare Urine Crystals Negative Urine Bacteria Negative Urine Casts 0-2 Hyaline Urine Mucus Trace Ur Culture Indicated? No Urine Glucose Negative SARS-CoV-2 (PCR) Negative Time Spent with Patient Time Spent with Patient: 35-49 minutes Time was spent: preparing to see the patient(eg.review tests), obtaining and/or reviewing separately otained hiistory, ordering medications,tests, procedures, referring, communicating with other health rehab care assistant, indepentently interpreting results and care coordination
[2023-07-12 19:35] VITALS: BP 143/82; PULSE 83; RESP 22; TEMP 36; O2SAT 93
[2023-07-12] MEDS: QUEtiapine 100 MG TAB 150 MG PO (20:23)
[2023-07-12] MEDS: Atorvastatin 20 MG TAB PO (20:24)
[2023-07-12] MEDS: Acetaminophen 325 MG TAB 650 MG PO (20:24)
[2023-07-13 06:58] LABS: Abs Immature Grans 0.05 10^3/uL (0.0-0.06); Absolute Basophil Count 0.03 10^3/uL (0.0-0.2); Absolute Eosinophil Count 0.13 10^3/uL (0.0-0.7); Absolute Lymphocyte Count 1.17 10^3/uL (1.2-3.4); Absolute Monocyte Count 1.93 10^3/uL (0.1-0.8); Absolute Neutrophil Count 4.65 10^3/uL (1.2-6.7); Basophils % 0.4; Eosinophils % 1.6; HCT 39.5 % (40.0-50.0); Immature Grans % 0.6; Lymphocytes % 14.7; MCH 30.5 pg (27.0-33.0); MCHC 32.9 % (32.0-36.0); MCV 93 fL (80-95); Monocytes % 24.2; Neutrophils % 58.5; RBC 4.26 10^6/uL (4.36-5.78); RDW 13.3 % (11.8-14.1); RDW-SD 45.4 fL; WBC 7.96 10^3/uL (4.4-10.8)
[2023-07-13 07:08] LABS: ALT 36 U/L (16-63); AST 34 U/L (15-37); Albumin 2.9 g/dL (3.4-5.0); Alkaline Phosphatase 90 U/L (46-116); Anion Gap 4.8 mmol/L (3-11); BUN 26 mg/dL (7-18); Bilirubin, Total 0.8 mg/dL (0.2-1.0); CO2 28.2 mmol/L (21.0-32.0); CREATININE 1.4 mg/dL (0.70-1.30); Chloride 106 mmol/L (98-107); Estimated GFR 51.77 (mL/min/1.73m2); Glucose 98 mg/dL (74-106); Potassium 3.8 mmol/L (3.5-5.1); Sodium 139 mmol/L (136-145); Total Protein 6.8 g/dL (6.4-8.2)
[2023-07-13 07:25] LABS: Diff Comment Diff Reviewed; Platelet Count 77 10^3/uL (130-400); RBC Morphology Normal
[2023-07-13] MEDS: amLODIPine 5 MG TAB PO (09:53)
[2023-07-13] MEDS: Aspirin E.C. 81 MG TABEC PO (09:53)
[2023-07-13] MEDS: Divalproex 250 MG TABEC PO ×2 (09:53→19:34)
[2023-07-13] MEDS: QUEtiapine 100 MG TAB 150 MG PO (09:53)
[2023-07-13] MEDS: Pramipexole 0.25 MG TAB PO (09:54)
[2023-07-13] MEDS: Divalproex 500 MG TABEC PO ×2 (09:54→19:33)
[2023-07-13] MEDS: Normal Saline Flush 10 ML SYR IVP (09:56)
[2023-07-13] MEDS: Metoprolol CR 50 MG TABCR 100 MG PO (10:03)
--- NOTE | 2023-07-13 10:24 | PDOC.CMDIS ---
Date of service: 07/13/23 Time of Service: 10:25 LACE Index Scoring Tool Questions: Length of Stay (in days): 2 Was the patient admitted via the E.D.?: Yes Comorbidities: Dementia E.D. Visits: 0 Answers: Total Score: 8 Risk of Readmission: Low Risk Care Management Discharge Plan Reason for Hospitalization: altered mental status Discharge Plan: Joseph will return to the community shelter where he resides. His caregiver will drive him home via private vehicle. He will follow up with his PCP and discharge plan of care. Patient/Family Education Needs: Review discharge instructions and limitations, discussion of self care needs including ask me three.
--- NOTE | 2023-07-13 10:40 | PTTR_ITS ---
PT Notes Visit Reasons: Altered mental status, KERVIN Physical Therapy Inpatient Treatment Note Date: 07/13/2023 Precautions: Fall. Standard. Activity as tolerated. Subjective: Per caregiver Skyla, patient has been lethargic. He however responded to PT's engagement attempts and was agreeable to walking with PT along with caregiver Skyla doing wheelchair follow. Objective: General Observation: Resting in bed Mental Status: Responds to commands/requests 50% of the time. Verbalizations minimal. Able to recall 's name but unable to tell how many kids he has. Pain: No verbalizations nor expression of pain throughout session Vital Signs: Cl[place] monitored by nursing staff Bed Mobility/Transfers: Required maximal verbal and tactile cueing for movement sequence and AD management Rolling minimal assist of 2 Supine to sit minimal assist of 2 Sit to supine minimal assist of 2 Sit to stand minimal assist of 2 Stand to sit minimal assist of 2 Gait: Facilitated safe and correct performance of level surface ambulation using FWW with moderate assist of PT and minimal assist of Nurse Meggan. Wheelchair follow provided by Caregiver Skyla. Patient covered a distance of 250 feet with 1 seated rest needed due to report of fatigue. Forward propulsion, directional changes, limb advancement and AD management are considerably impaired requiring maximal verbal, tactile, and visual cueing from PT. Freezes when movement is not initiated for him. Impaired awareness of environment, navigation skills significantly impaired. Balance: Static Sitting: Normal Dynamic Sitting: Fair Static Standing: Poor Dynamic Standing: Poor ASSESSMENT: Much more engaged today. Verbalized with sentences with more words. Significant decline in walking ability now requiring assistance of 2 to safely navigate obstacles and manage AD. Initiation and cessation of movement significantly impaired, showing signs of parkinsonism. Unable to safely estimate distance of objects from him. Requires maximal cueing for all mobility ADL performance. Residential half-way able to provided assiatnce of 2 for patient as needed. DISCHARGE RECOMMENDATIONS: [] Home with no services [] [X] Home with services. Patient will benefit from home health PT services in order to progress mobility level using least restrictive assistive ambulatory device, assess home safety, identify additional equipment needs, and establish a functional maintenance program that will increase ability of patient to remain at home. [] Home with outpatient PT [] [] SNF for continued rehabilitation [] [] Surface Lay Out Technician Care [] [] SNF versus LTC based on ability to participate and progress [] TREATMENT CODE/TIME: 88643 x 27 minutes beginning at 10:40 AM.
--- NOTE | 2023-07-13 15:27 | W.PM.PROGNOT ---
Date of Service Date of service: 07/13/23 Time of Service: 15:27 Assessment and Plan Assessment and plan (1) Altered mental status: Assessment and plan: more sedate today, ? due to increased seroquel dosing. reduce seroquel to home dosing Qualifiers: Altered mental status type: delirium Qualified Code(s): R41.0 - Disorientation, unspecified (2) KERVIN (acute kidney injury): Status: Acute Assessment and plan: appeared to be slightly dehydrated on admission, had IV hydration overnight, will stop and repeat labs in am. Encourage oral intake. (3) Frontotemporal dementia: Status: Chronic Assessment and plan: Progressive disease with recent move and new environment (was in psychiatric facility for past year, moved 5 weeks ago. decrease seroquel due to increased sedation. (4) Discharge planning issues: Status: Acute Assessment and plan: anticipate discharge back to home tomorrow with 24 hours care givers as previously arranaged. discussed with Dr Jones Subjective Subjective Patient reports: tolerating liquids well, tolerating a regular diet and afebrile Interval history since last seen: more sedate today after lunch was ambulated with PT, Exam Const General: frail appearing Nutritional Appearance: average body habitus Orientation: confused HENCA Head: normal to inspection, normocephalic and atraumatic Mouth: moist mucous membranes abnormal (Slightly dry) Neck Neck: normal visual inspection and full ROM Chest Chest: normal inspection of the chest Resp Effort & Inspection: normal respiratory effort Cardio Rate: regular rate Rhythm: regular rhythm GI Inspection: normal to inspection Palpation: soft Neuro General: patient alert, patient awake, not oriented x3 and patient confused Extrem General: normal to inspection, full ROM and no pedal edema Objective Last Vital Signs Temp 36.0 C L 07/12/23 19:35 Pulse 83 07/12/23 19:35 Resp 22 07/12/23 19:35 BP 143/82 H 07/12/23 19:35 Pulse Ox 93 07/12/23 19:35 Laboratory Results - last 24 hr 07/13/23 06:40 WBC 7.96 RBC 4.26 L Hgb 13.0 L Hct 39.5 L MCV 93 MCH 30.5 MCHC 32.9 RDW 13.3 Plt Count 77 L MPV 10.0 Immature Gran % 0.6 Neutrophils % 58.5 Lymphocytes % 14.7 Monocytes % 24.2 Eosinophils % 1.6 Basophils % 0.4 Nucleated RBC % 0.0 Absolute Neutrophils 4.65 Absolute Lymphocytes 1.17 L Absolute Monocytes 1.93 H Absolute Eosinophils 0.13 Absolute Basophils 0.03 RBC Morphology Normal Sodium 139 Potassium 3.8 Chloride 106 Carbon Dioxide 28.2 Anion Gap 4.8 BUN 26 H Creatinine 1.4 H Est GFR (CKD-EPI 2020) 51.77 Glucose 98 Calcium 9.0 Total Bilirubin 0.8 AST 34 ALT 36 Alkaline Phosphatase 90 Total Protein 6.8 Albumin 2.9 L Time Spent with Patient Time Spent with Patient: 25-34 minutes Time was spent: preparing to see the patient(eg.review tests), obtaining and/or reviewing separately otained hiistory, ordering medications,tests, procedures, indepentently interpreting results and care coordination
--- NOTE | 2023-07-13 16:16 | PDOC.CMPRO ---
Date of service: 07/13/23 Time of Service: 16:17 Care Management Progress Note Progress Note Text Progress Note Text: S/O: Joseph was sleeping when CM attempted to meet with him. Per report, he has been more somnolent today; the provider is reducing his seroquel dosing to his home regiment. Speech therapy attempted to meet with him, and he was unable to participate. CM will continue to follow. A: Joseph is a 77 year old male admitted to [facility] on 07/11/23 for AMS, KERVIN. P: Anticipate Joseph will return to his AF home with a resumption of his caregiver services when medically cleared. He will follow up with his community providers and plan of care and transport with his caregiver. CM will follow and assess for discharge concerns.
[2023-07-13 16:19] VITALS: BP 116/48; PULSE 65; RESP 22; TEMP 37; O2SAT 94
--- NOTE | 2023-07-13 17:35 | STREC_ITS ---
Date of service: 07/13/23 Time of Service: 17:35 Speech Therapy Recommendations Report ST Recommendations: SECURITY GUARDS DISPATCHER Communication/Non-treatment note: Consult received and chart reviewed. Attempting to contact patient x2 this date (mid-day and late afternoon) but patient was somnolent and unrousable to voice, sternal rub, and repositioning as well as cold compresses on forehead. He was non-responsive except for very brief attempts to open his eyes. No verbalizations. Per physical therapy, he did participate in PT this morning. Nursing reports some difficulty taking pills overnight. He reportedly tolerated his breakfast well today but was very tired and did not eat much. SECURITY GUARDS DISPATCHER will re-attempt clinical swallow evaluation at bedside tomorrow morning. In the meantime, nursing is requested to provide Q34h oral care for comfort and saliva stimulation, and to reduce oral bacterial load. Given reported difficulties with PO medications, recommend to crush pills as able, or whole as needed, with a tsp puree. Follow with sip liquid. If SECURITY GUARDS DISPATCHER is unable to complete adequate swallow evaluation prior to d/c home, recommend placement of HH SECURITY GUARDS DISPATCHER referral, or outpatient SECURITY GUARDS DISPATCHER referral as appropriate. Coding
[2023-07-13] MEDS: Erythromycin Ophth Oint 3.5 GM TUBE OU (19:34)
[2023-07-13] MEDS: Atorvastatin 20 MG TAB PO (19:34)
[2023-07-13] MEDS: QUEtiapine 100 MG TAB PO (19:34)
[2023-07-13 23:54] VITALS: BP 132/76; PULSE 71; RESP 18; TEMP 37.5; O2SAT 94
[2023-07-14 08:11] VITALS: BP 143/83; PULSE 81; RESP 19; TEMP 37.2; O2SAT 94
[2023-07-14 08:37] LABS: Anion Gap 9.6 mmol/L (3-11); BUN 35 mg/dL (7-18); CO2 25.4 mmol/L (21.0-32.0); CREATININE 1.5 mg/dL (0.70-1.30); Calcium 9.2 mg/dL (8.5-10.1); Chloride 106 mmol/L (98-107); Estimated GFR 47.65 (mL/min/1.73m2); Glucose 117 mg/dL (74-106); Magnesium 2.4 mg/dL (1.8-2.4); Potassium 3.8 mmol/L (3.5-5.1); Sodium 141 mmol/L (136-145)
--- NOTE | 2023-07-14 09:20 | OT.INIE ---
Occupational Therapy Notes Inpatient Occupational Therapy Evaluation Date: 07/14/23 Referring Doctor:Dr. Santos OT Orders: Non urgent Precautions: Fall, standard, full PATIENT PROFILE/ADMITTING DIAGNOSIS: Pt is a 77 year old male admitted to Med Surg for the dx of KERVIN, frontotemporal dementia, SNHL (B) ears, acute pericarditis. Past Medical History: All Active Problems (Updated 07/11/23 @ 23:44 by Osvaldo Santos) KERVIN (acute kidney injury) (Acute) 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) of both ears (Acute) Acute pericarditis (Acute ~1968) Medical History Impaired fasting glucose Intertrigo Right-sided chest pain Altered mental status Left arm pain Ventricular ectopy Atherosclerotic heart disease of [place] coronary artery without angina pectoris Recurrent major depressive disorder RLS (restless legs syndrome) Hearing loss Insomnia Hypothyroidism Hypertension Mixed hyperlipidemia History of behavioral and mental health problems Abnormal EKG Left bundle-branch block Family history of prostate cancer Acute hyponatremia Hypomania Surgical History Vasectomy Stent placement 09/10/16-[facility] Arthroplasty of knee right Appendectomy Social History/Home Situation: Per note, Joseph lives in a private skilled nursing in [place], [place] He is and his lives in [place]. Joseph has children but they do not play an active role in his life. he has dementia and has experienced a significant decline in function and ability in the past few weeks. he needs assistance with ADLs and the assist of 2 with ambulation. Joseph is unable to provide any baseline information for OT at this time. SUBJECTIVE: Pt was lying in bed. He is able to open eyes but was not able to provide a reliable information of his baseline. OBJECTIVE: General Observation: Pt is quiet in nature, able to answer yes or no questions but minimal verbal conversation was achieved in session. Mental Status: alert to name Pain: no c/o pain when asked, pt shakes his head no ROM: RUE Unable to perform AROM with vc L UE Unable to perform AROM with vc STRENGTH: RUE per vc he was able to squeeze hands for logging tractor operator swamp strength which was weak LUE per vc he was able to squeeze hands for logging tractor operator swamp strength which was weak FUNCTIONAL MOBILITY/ADLS: EATING max (A) with demands. He is receptive to eating but is unable to follow vc. OT provided max (A) for hand to mouth and recommends CERAMIC ENGINEERING PROFESSOR consult which is already ordered. Pt is able to tolerate apple sauce consistency but but thicker food items like yogurt which seem to make his cough. OT feels that CERAMIC ENGINEERING PROFESSOR will be able to provide better guidance on this. Increased performance time for any task initiation or executive planning for function with his ADLs. BALANCE: Unable to test SPECIAL TESTS: Daily Activity Limitations Standardized Measure [facility] AM -PAC ?6 clicks? Daily Activity Inpatient Short Form: Raw score: 6 Standardized score: 17.07 CMS score: 100% INFORMED CONSENT/EDUCATION: Pt instructed in purpose of OT Consult and plan of care. ASSESSMENT: Patient is a 77-year-old male referred to occupational therapy services with diagnosis of KERVIN, frontotemporal dementia, SNHL (B) ears, acute pericarditis. Patient presents with clinical signs and symptoms consistent with dx, as demonstrated by the following impairment level findings/functional limitations: Impairments in ADL/IADL and leisure activities, decreased functional activity tolerance, decreased (B) UE use, decreased functional mobility, requires max (A) for ADLs at his baseline level of function within the past couple weeks, decreased cognition d/t dementia. AMPAC score 6 Patient is assessed as a high 78996 complexity based on the following: History: see above Examination: see functional limitations as noted above Presentation: evolving Decision Making: AMPAC score 6 GOALS Goals x1 week 1. Eating pt will be able to hold utensils and bring to his mouth with min (A) 2. Pt will be able to wash his face (I) 3. Pt will be able to wash his hands (I) PLAN OF CARE/TREATMENT PLAN: 1x/day, 3-5 days/ week x 1week Initiate Occupational Therapy Services for bathing, dressing, grooming, toileting, eating, transfer training. DISCHARGE RECOMMENDATIONS Based on pts current level of function, decreased functional (I) OT recommends home with resumption of services vs. LTC TREATMENT TIME/MINUTES/CODES 67677, 20 minutes Anuradha Mckeon OTR/L [facility] [place], [place]
[2023-07-14] MEDS: QUEtiapine 100 MG TAB PO (09:37)
[2023-07-14] MEDS: amLODIPine 5 MG TAB PO (09:37)
[2023-07-14] MEDS: Aspirin E.C. 81 MG TABEC PO (09:37)
[2023-07-14] MEDS: Erythromycin Ophth Oint 3.5 GM TUBE OU ×2 (09:37→15:42)
[2023-07-14] MEDS: Divalproex 500 MG TABEC PO (09:37)
[2023-07-14] MEDS: Divalproex 250 MG TABEC PO (09:37)
[2023-07-14] MEDS: Pramipexole 0.25 MG TAB PO (09:37)
[2023-07-14] MEDS: Metoprolol CR 50 MG TABCR 100 MG PO (09:37)
[2023-07-14] MEDS: Normal Saline Flush 10 ML SYR IVP (09:38)
--- NOTE | 2023-07-14 10:40 | PT.INTREAT ---
Date of service: 07/14/23 Time of Service: 10:10 PT Notes Visit Reasons: Altered mental status, KERVIN Inpatient Physical Therapy Treatment Note [facility] Date: 07/14/23 PRECAUTIONS: Fall, standard, activity as tolerated. SUBJECTIVE: Patient alert, c/o terrible cough. OBJECTIVE: Mccrary's position in bed, agreeable to therapy. ? PAIN: none reported VITALS: monitored by nursing staff ? ? BED MOBILITY/TRANSFERS? Rolling L/R: min assist of one and mod cues Supine-sit: min assist of one, verbal and tactile cues ? Sit-supine: mod assist of one, verbal and tactile cues ? Sit-stand: CGA at gait belt, tactile cue at axilla to transition into standing. Mod assist to keep patient upright until he catches his balance. Initially pushes back quite hard. ? Stand-sit: CGA at gait belt, verbal cue? Bed-Chair: mod assist to steer walker, continual verbal and tactile cues for patient to shift weight forward. ? Chair-bed: mod assist to steer walker, continual verbal and tactile cues for patient to shift weight forward. ? Provided skilled cues and instruction on performance and technique throughout. Gait Training ([id number]): Direct one-on-one instruction and skilled instruction in: [x] employing an assistive device [] modified weight-bearing status [x] movement sequencing [x] turning and movement with proper form [x] Provided verbal cues for equipment management and technique [] Provided instruction in gait pattern [] Patient education regarding pacing and breathing techniques to maximize activity tolerance? GAIT? Assistive Device: FWW ? Weight bearing: full Assist: mod assist of one to steer walker, use walker to facilitate forward movement, tactile cues at gait belt and verbal cues to keep patient's center of mass over his base of support. ? Distance:? 75 feet ? Deviation: extreme short step length 95% of steps, occasional average step length left leg, but when stride is long patient's foot turns out almost 90 degrees. Occasional scissor gait noted, generally during swing phase right leg. ? ASSESSMENT:? Patient will benefit from continued skilled therapy to facilitate increased strength, balance, and activity tolerance. Patient tolerates therapy well, no SOB noted, no pain reported. Resting comfortably in bed at end of treatment session, covered with blankets, call álvarez within easy reach. PLAN: Continue global strengthening per plan of care until patient is medically cleared for discharge. TREATMENT CODE/TIME: 21 minutes beginning at 10:10
--- NOTE | 2023-07-14 14:27 | W.PM.DS.N ---
Date of service: 07/14/23 Time of Service: 14:27 DS: Diagnosis Discharge Diagnosis (1) Altered mental status: Asessment and Plan: suspect he is at baseline with some acute delirium possibly worsened with environment change. we increased seroquel from 100 mg bid to 150 mg bid with increased sedation so resumed his originaly dose. (2) KERVIN (acute kidney injury): Status: Acute Asessment and Plan: most likely close to baseline. received IV hydration with some improvement. po intake remains poor d/t advancing dementia. speech therapy consultation will be placed for outpatient home health follow up (3) Frontotemporal dementia: Status: Chronic Asessment and Plan: progressing. discussion with and patient is DNR/DNI, she states paperwork is on file with [facility]. she is interested in palliative/hospice consultation. this will be placed for outpatient follow up. caregiver is requesting Zo Elmore APRN if available. Discharge Plan Disposition Patient Disposition: Home W/Home Health Services Condition: Poor Discharge Details Reason For Visit: Altered mental status, KERVIN Admit Date/Time: 07/11/23 18:59 Admit Provider: Osvaldo Santos Attending Provider: Osvaldo Santos Primary Care Provider: Unknown,Unknown Home Meds and New Rx's Prescriptions: Continued atorvastatin 20 mg tablet 20 mg PO DAILY metoprolol succinate 100 mg capsule,sprinkle,ER 24hr 100 mg PO DAILY pramipexole 0.25 mg tablet 0.25 mg PO DAILY divalproex [Depakote] 500 mg tablet,delayed release (DR/EC) 500 mg PO BID divalproex [Depakote] 250 mg tablet,delayed release (DR/EC) 250 mg PO BID amlodipine 5 mg tablet 5 mg PO DAILY quetiapine [Seroquel] 100 mg tablet 100 mg PO BID aspirin [Aspir-81] 81 MG tablet,delayed release (DR/EC) 81 mg PO DAILY acetaminophen 325 MG capsule 325 mg PO Q4H PRN lorazepam 0.5 mg tablet 0.5 mg PO TID Patient Comments: TAKE ONE TABLET BY MOUTH THREE TIMES A DAY AND 1 TABLET UP TO ONCE DAILY NEEDED FOR ANXIETY, MAXIMUM DAILY DOSE = 1.5MG Discontinued clopidogrel [Plavix] 75 MG tablet 75 mg PO DAILY Patient Comments: 09/07/16-RX'D BY DR HUGHES. Discharge Instructions Instructions: Dementia (ED) Additional Instructions: no medication changes. Stand Alone Forms: Nursing Discharge Form Referrals: Alba Huizar [SPEECH LANGUAGE PATHOLOGIST] - 07/27/23 3:00 am Zo Elmore NP [NURSE PRACTITIONER] - 07/29/23 9:30 am Activity:: Activity as Tolerated Equipment/Supplies:: No Equipment Needed Diet:: As Tolerated Discharge Orders Discharge Orders: Discharge Order (Routine); Ordered 07/14/23 Ordered By: Chanda Lopez Discharge Data Discharge Date/Time-TO BE ENTERED AT DEPARTURE: 07/14/23 17:24 DS: Summary Time Spent with Patient providing and/or coordinating discharge services: Less than 30 minutes Status at Discharge Functional status at discharge: uses cane/walker Overall status at discharge: patient is progressing back to baseline Mental Status: other Speech and Movement: restless Mood: other Affect: normal affect Exam Const General: frail appearing Nutritional Appearance: average body habitus Orientation: confused HENMT Head: normal to inspection, normocephalic and atraumatic Mouth: moist mucous membranes abnormal (Slightly dry) Neck Neck: normal visual inspection and full ROM Chest Chest: normal inspection of the chest Resp Effort & Inspection: normal respiratory effort Cardio Rate: regular rate Rhythm: regular rhythm GI Inspection: normal to inspection Palpation: soft Neuro General: patient alert, patient awake, not oriented x3 and patient confused Extrem General: normal to inspection, full ROM and no pedal edema Psych Mental Status: other Speech and Movement: restless Mood: other Affect: normal affect DS: Data Vitals/I&O Vitals and I&O: Vital Signs Temperature 37.2 C 07/14/23 08:11 Temperature Source Tympanic 07/14/23 08:11 Pulse 81 07/14/23 08:11 Pulse Rhythm Regular 07/13/23 20:14 Pulse 54 L 07/11/23 18:20 Respiratory Rate 19 07/14/23 08:11 Respiratory Effort Normal, Non-Labored 07/13/23 20:14 Respiratory Depth Normal 07/13/23 20:14 Respiratory Pattern Normal 07/13/23 20:14 Blood Pressure 143/83 H 07/14/23 08:11 Blood Pressure Mean 101 07/11/23 18:31 Blood Pressure Position Sitting 07/11/23 14:14 Pulse Oximetry 94 07/14/23 08:11 Oxygen Delivery Method Room Air 07/14/23 08:11 Oxygen Flow Rate 0 07/14/23 08:11 Pain Level 0 07/11/23 21:00 Intake & Output 07/13/23 07/14/23 07/14/23 23:59 11:59 23:59 Intake Total 240 / 240 Output Total 250 / 550 Balance -10 / -310 Intake: Oral 240 / 240 Output: Urine 250 / 550 Other: Urine Color Straw Yellow Urine Appearance Clear Voiding Methods Urinal Incontinent Data Completed and Pending Labs on day of discharge: Labs from last 24 hours 07/14/23 08:15 Sodium 141 Potassium 3.8 Chloride 106 Carbon Dioxide 25.4 Anion Gap 9.6 BUN 35 H Creatinine 1.5 H Est GFR (CKD-EPI 2020) 47.65 Glucose 117 H Calcium 9.2 Magnesium 2.4 PFSH All Active Problems (Updated 07/12/23 @ 17:00 by Chanda Lopez NP) Discharge planning issues (Acute) KERVIN (acute kidney injury) (Acute) 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) of both ears (Acute) Acute pericarditis (Acute ~1968) Medical History Impaired fasting glucose Intertrigo Right-sided chest pain Altered mental status Left arm pain 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 Brother Heart disease Grandfather Neoplasm STOMACH Grandfather Ruptured appendix Grandmother No problems noted. Grandmother No problems noted. Daughter No problems noted. Daughter No problems noted. Social History Smoking/Tobacco Use Status: Former Tobacco Use Smoking risk assessment performed?: Yes Alcohol Intake: former Drug use: Current Sobriety Substance use type: does not use Housing: assisted living facility Do you feel safe in your relationship?: Yes Time Spent with Patient Time Spent with Patient: <45 minutes Time was spent: preparing to see the patient(eg.review tests), obtaining and/or reviewing separately otained hiistory, ordering medications,tests, procedures, indepentently interpreting results and counseling the patient (discussion with and caregiver)
--- NOTE | 2023-07-14 14:36 | PDOC.HHF2F_ITS ---
Home Health Referral Home Health Orders Clinical synopsis of why skilled professionals are needed: strengthening, home safety Medical diagnosis necessitation home health referral: dementia, weakness from mild dehydration Physical Therapist: Check all that apply Increase strength & endurance for safe mobility at home: Ordered Fall reduction therapy program for patient with history of frequent falls: Ordered Home safety evaluation and teaching/gait training including stair management (if applicable): Ordered Occupational Therapist: Evaluate and treat for patient unable to perform ADL/IADL/self-care: Ordered Upper extremity strengthening, range and motion: Ordered Speech Therapist: Check all that apply For swallow evaluation/therapy due to dysphagia: Ordered Cognition/memory: Ordered Speech/communication disorders: Ordered Home Bound Status Describe why leaving home would require a considerable and taxing effort: Confusion Encounter Date and Reason: I certify that a FTF encounter for this patient was performed on July 14, 2023 and that such encounter was related to the primary reason the patient requires home health services. The encounter was conducted in the following manner: * By me as the certifying physician, AUTOCLAVE OPERATOR, PA or * By an inpatient physician, AUTOCLAVE OPERATOR or PA during an inpatient stay who communicated findings to me, Certification And Authentication I certify that I composed the above information based on my clinical judgment relating to this patient's medical condition and, if applicable, clinical findings communicated to me by the NPP or inpatient physician who performed the FTF encounter. Name of Provider that will be monitoring home health services: Missy Moon
--- NOTE | 2023-07-14 14:47 | PDOC.CMDIS ---
Date of service: 07/14/23 Time of Service: 14:47 LACE Index Scoring Tool Questions: Length of Stay (in days): 3 Was the patient admitted via the E.D.?: Yes Comorbidities: Dementia E.D. Visits: 1 Answers: Total Score: 10 Risk of Readmission: High Risk Care Management Discharge Plan Reason for Hospitalization: altered mental status Discharge Plan: Joseph will return to his [facility] home with a resumption of his caregiver services. He will follow up with his community providers and plan of care and transport with EMS coordinated by CM. Patient/Family Education Needs: Review of discharge instructions, limitations, activity, follow up plan, discuss Ask Me Three Services Needed at Discharge: Home Health Care Services
--- NOTE | 2023-07-14 14:50 | PDOC.CMPRO ---
Date of service: 07/14/23 Time of Service: 14:50 Care Management Progress Note Progress Note Text Progress Note Text: CM had a phone conversation with Joseph's Beatriz. Chanda Lopez APRN was also on the call. During the conversation, Joseph's Beatriz stated that Joseph did not want to be resuscitated or intubated ort have a feeding tube. It was decided that a Palliative Care consult would be placed with the goal of transitioning Joseph to hospice when appropriate. Joseph's code status was changed to DNR/DNI.
== END 2023-07-14 17:24 | disposition home health service (06) ==
LOC: ER 19:29 → MS 20:44
PROVIDERS: Internal Medicine; Nurse Practitioner Acute Care; Admitting Provider Family Medicine; Emergency Provider Emergency Medicine; Visit Provider Family Medicine
DX: N17.9 Acute kidney failure, unspecified (principal); E86.0 Dehydration; G31.09 Other frontotemporal neurocognitive disorder; F02.80 Dementia in other diseases classified elsewhere, unspecified severity, without behavioral disturbance, psychotic disturbance, mood disturbance, and anxiety; R29.6 Repeated falls; Z79.899 Other long term (current) drug therapy; Z66 Do not resuscitate; W19.XXXA Unspecified fall, initial encounter
CPT/HCPCS: 00123; 36415; 73521; 80048; 80053; 85027; 87635; 93005; 96360; 96361; 97116; 97163; 97167; 97530; 99285; 70450; 72125; 74177; 81003; 81015; 82140; 83735; 84443; 84484; 85025; 85610; 93010; 99222; 99232; 99239; G0378; J3490

== ENCOUNTER 2023-10-04 15:40 | Emergency (ER) | payer MEDICARE, SELFPAY ==
[2023-10-04 15:44] VITALS: BP 183/92; PULSE 103; RESP 18; TEMP 36.5; O2SAT 97
--- NOTE | 2023-10-04 15:45 | RT.EKG_ITS ---
APPROVED REPORT Exam: Resting ECG Reason for Exam: low sodium Patient Location: E HR:100 bpm ECG Measurements Heart Rate 100 AXIS VA 171 P 50 QRSd 152 QRS -50 QT 405 T 117 QTc 521 Conclusion Sinus tachycardia...rate> 99 Left bundle branch block...QRSd>120, broad/notched R
--- NOTE | 2023-10-04 15:59 | ED.GENADUL_ITS ---
HPI General Mode of arrival: ambulatory . Date/Time Provider Initiated Documentation: 10/04/23 15:41 . Information obtained by: patient . History of Present Illness 78 year old M presents to the emergency department with the chief complaint of low sodium, Patient started experiencing this unknown and it has been constant. No relieving factors improve symptom(s), No exacerbating factors reported . Patient notes no other symptoms.. Patient did receive the following treatments prior to arrival, none Related Data Home Medications Medication Instructions Recorded Confirmed pramipexole 0.25 mg tablet 0.25 mg PO DAILY #30 tabs 07/24/23 10/04/23 dexamethasone 1 mg tablet 1 mg PO DAILY #30 tabs 10/01/23 10/04/23 lorazepam 0.5 mg tablet 0.5 mg PO BID 10/01/23 10/04/23 quetiapine 100 mg tablet (Seroquel) 100 mg PO DAILY 10/01/23 10/04/23 aspirin 81 mg tablet,delayed 81 mg PO DAILY 10/04/23 10/04/23 release (Adult Low Dose Aspirin) atorvastatin 20 mg tablet 20 mg PO DAILY 10/04/23 10/04/23 melatonin 5 mg capsule 5 mg PO QHS 10/04/23 10/04/23 metformin 500 mg tablet 500 mg PO BID 10/04/23 10/04/23 Previous Rx's Medication Instructions Recorded pramipexole 0.25 mg tablet 0.25 mg PO DAILY #30 tabs 07/24/23 dexamethasone 1 mg tablet 1 mg PO DAILY #30 tabs 10/01/23 Allergies Allergy/AdvReac Type Severity Reaction Status Date / Time No Known Allergies Allergy Unverified 10/01/23 10:39 General Stated Complaint: GenMedical JOANA: 3 Review of Systems All systems reviewed & are unremarkable except as noted in HPI and below Constitutional Constitutional: Denies chills, Denies fever(s) and Denies weakness Cardiovascular Cardiovascular: Denies chest pain and Denies dyspnea Respiratory Respiratory: Denies cough and Denies dyspnea Gastrointestinal Gastrointestinal: Denies abdominal pain, Denies nausea and Denies vomiting Musculoskeletal Musculoskeletal: Denies joint swelling Neurologic Neurologic: Denies weakness Endocrine Endocrine: Denies cold intolerance and Denies heat intolerance Exam Const General: no acute distress Orientation: alert HENMT Head: normal to inspection Ears: external ears normal General nose exam: external nose normal Mouth: moist mucous membranes Eyes General: appearance normal, both eyes and all related structures Neck Neck: normal visual inspection Resp Effort & Inspection: normal respiratory effort and able to speak in complete sentences Cardio Rate: regular rate Skin General skin exam: no rashes or lesions noted Neuro General: patient alert and patient oriented x3 Extrem General: normal to inspection Psych Mental Status: mental status grossly normal Course Vital Signs Vital signs: Vital Signs Temperature 36.5 C 10/04/23 15:44 Pulse 103 H 10/04/23 15:44 Respiratory Rate 18 10/04/23 15:44 Blood Pressure 183/92 H 10/04/23 15:44 Pulse Oximetry 97 10/04/23 15:44 Temperature 36.5 C 10/04/23 15:44 Temperature Source Temporal Artery Scan 10/04/23 15:44 Pulse 103 H 10/04/23 15:44 Respiratory Rate 18 10/04/23 15:44 Blood Pressure 183/92 H 10/04/23 15:44 Blood Pressure Position Sitting 10/04/23 15:44 Pulse Oximetry 97 10/04/23 15:44 Oxygen Delivery Method Room Air 10/04/23 15:44 Oxygen Flow Rate 0 10/04/23 15:44 Medical Decision Making 78 yo male with hx of 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 He states that he has been feeling well today had a general checkup and labs done with that and was called later this afternoon stating his sodium was 120. He was told to go to his closest ER. Patient is alert and oriented x 4 on arrival and has no complaints. Denies any chest pain trouble breathing fevers abdominal pain nausea vomiting urinary symptoms. He has no focal deficits clear lungs no murmurs soft abdomen. No JVD no lower leg swelling he appears euvolemic. Unclear etiology for his hyponatremia, will obtain repeat CMP, CBC, mag Phos levels and urinalysis with urine sodium. Labs show no significant concerning findings. Sodium level is 127 when corrected for mild hyperglycemia it is 130. Patient still asymptomatic. Do not feel he requires any other further acute testing, can be worked up further as an outpatient if he chooses. He is stable for discharge return precautions given Differential Diagnosis Differential Diagnosis: hyponatremia, siadh, electrolyte abnormality Imaging Data Radiologic Study: Attestation: I personally reviewed and interpreted this imaging study as follows: Imaging: X-Ray Radiologist's impression: No acute findings ECG Data Attestation: I personally reviewed and interpreted this ECG (s) as follows: Prior ECG tracings: available for review Interpretation: sinus tachycardia, rate of 100, pr 171, lbbb, no significant changes from prior ekg Quality:SDOH Health Related Social Needs: No Data to Display PFSH All Active Problems (Updated 10/04/23 @ 16:51 by Rupert Velez MD) Hyponatremia (Acute) Palliative care patient (Acute) Bipolar disorder (Acute) KERVIN (acute kidney injury) (Acute) 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) of both ears (Acute) Acute pericarditis (Acute ~1968) Medical History Heart disease Mental and behavioral problem Memory loss Urge incontinence Hyperglycemia Essential hypertension Generalized anxiety disorder Impaired fasting glucose Intertrigo Right-sided chest pain Altered mental status Left arm pain Ventricular ectopy Atherosclerotic heart disease of [place] coronary artery without angina pectoris Recurrent major depressive disorder RLS (restless legs syndrome) Hearing loss Insomnia Hypothyroidism Hypertension Mixed hyperlipidemia History of behavioral and mental health problems Abnormal EKG Left bundle-branch block Family history of prostate cancer Acute hyponatremia Hypomania Surgical History Vasectomy Stent placement 09/10/16-[facility] Arthroplasty of knee right Appendectomy Family History Mother Diabetes Essential hypertension Father Diabetes Neoplasm PROSTATE Sister Diabetes Neoplasm MULTI-MYELOMA Sister Diabetes Essential hypertension Sister No problems noted. Brother Heart disease Grandfather Neoplasm STOMACH Grandfather Ruptured appendix Grandmother No problems noted. Grandmother No problems noted. Daughter No problems noted. Daughter No problems noted. Social History Smoking risk assessment performed?: No Alcohol Intake: former Drug use: Current Sobriety Substance use type: does not use Housing: assisted living facility Do you feel safe in your relationship?: Yes Discharge Plan Disposition Patient Disposition: Home Condition: Stable Discharge Details Clinical Impression: Hyponatremia Primary Care Provider: Missy Moon ED Provider: Rupert Velez Home Meds and New Rx's Prescriptions: Continued quetiapine [Seroquel] 100 mg tablet 100 mg PO DAILY dexamethasone 1 mg tablet 1 mg PO DAILY Qty: 30 0RF pramipexole 0.25 mg tablet 0.25 mg PO DAILY Qty: 30 0RF aspirin [Adult Low Dose Aspirin] 81 mg tablet,delayed release (DR/EC) 81 mg PO DAILY atorvastatin 20 mg tablet 20 mg PO DAILY metformin 500 mg tablet 500 mg PO BID melatonin 5 mg capsule 5 mg PO QHS lorazepam 0.5 mg tablet 0.5 mg PO BID Discharge Instructions Instructions: Hyponatremia (ED) Additional Instructions: Your sodium level today was not severe enough to require hospitalization You can try increasing your dietary intake of salt or try salt tablets. Follow-up with your primary care provider within 1 to 2 weeks If you feel more ill or start having symptoms such as difficulty breathing, weakness, nausea and vomiting, or severe headaches return to the emergency department
[2023-10-04 16:32] LABS: Abs Immature Grans 0.45 10^3/uL (0.0-0.06); HCT 37.6 % (40.0-50.0); HGB 13.6 g/dL (13.5-17.5); MCH 32.2 pg (27.0-33.0); MCHC 36.2 % (32.0-36.0); MCV 89 fL (80-95); Platelet Count 174 10^3/uL (130-400); RBC 4.23 10^6/uL (4.36-5.78); RDW 13.8 % (11.8-14.1); RDW-SD 44.8 fL; WBC 8.49 10^3/uL (4.4-10.8)
[2023-10-04 16:33] LABS: ALT 66 U/L (16-63); Albumin 3.2 g/dL (3.4-5.0); Alkaline Phosphatase 117 U/L (46-116); Anion Gap 8.3 mmol/L (3-11); BUN 24 mg/dL (7-18); Bilirubin, Total 0.7 mg/dL (0.2-1.0); CO2 25.7 mmol/L (21.0-32.0); Calcium 8.2 mg/dL (8.5-10.1); Chloride 93 mmol/L (98-107); Estimated GFR 77.04 (mL/min/1.73m2); Glucose 230 mg/dL (74-106); Magnesium 2.1 mg/dL (1.8-2.4); PHOSPHORUS 3.3 mg/dL (2.6-4.7); Potassium 4.3 mmol/L (3.5-5.1); Sodium 127 mmol/L (136-145); TSH (W/Ref FT4) 3.61 uIU/mL (0.36-3.74); Total Protein 6.6 g/dL (6.4-8.2)
--- NOTE | 2023-10-04 16:35 | DI.RAD_ITS ---
Exam(s) XR CHEST 2V PA LATERAL EXAM: XR CHEST 2V PA LATERAL CLINICAL HISTORY: ?mass TECHNIQUE: 2D digital imaging was performed of the chest. Two images were obtained. PA and lateral views were obtained. COMPARISON: CR CHEST 2 VIEWS PA,LAT from 02/26/2017 FINDINGS: MEDIASTINUM: Normal. HEART: Normal. PULMONARY VASCULATURE: Normal. LUNGS: Clear. PLEURAL SPACE: No pleural effusion or pneumothorax. BONE:Within normal limits for the patient's age. OTHER FINDINGS:Normal. IMPRESSION: No acute pulmonary findings. DATA REPOSITORY: RADIATION DOSE DELIVERED:
[2023-10-04 16:50] LABS: Bands % 5
[2023-10-04 16:51] LABS: Absolute Lymphocyte Count 0.85 10^3/uL (1.2-3.4); Absolute Monocyte Count 0.51 10^3/uL (0.1-0.8); Absolute Neutrophil Count 6.79 10^3/uL (1.2-6.7); Diff Comment Manual Differential; Metamyelocytes % 3; Myelocytes % 1; Polychromasia Present
[2023-10-04 16:55] LABS: Bilirubin Negative (Negative); Blood Negative (Negative); Clarity Clear (Clear); Glucose 250 mg/dL (Negative); Ketones Negative (Negative); Leukocyte Esterase Negative (Negative); Nitrite Negative (Negative); Specific Gravity 1.015 (1.005-1.025); Urobilinogen 0.2 mg/dL (Up to 0.2)
[2023-10-04 16:59] LABS: Sodium, Urine 58 mmol/L
[2023-10-04 17:18] LABS: AST 29 U/L (15-37)
--- NOTE | 2023-10-04 17:34 | NUR.NOTE ---
Nursing Note:left patient's hat with security
== END 2023-10-04 17:14 | disposition home or self-care (01) ==
PROVIDERS: Emergency Provider Emergency Medicine; PCP Family Medicine
DX: E87.1 Hypo-osmolality and hyponatremia (principal); I44.7 Left bundle-branch block, unspecified; R00.0 Tachycardia, unspecified; F03.90 Unspecified dementia, unspecified severity, without behavioral disturbance, psychotic disturbance, mood disturbance, and anxiety; Z79.82 Long term (current) use of aspirin
CPT/HCPCS: 80053; 93005; 99285; 71046; 81003; 83735; 84100; 84300; 84443; 85025; 93010; 99284

== ENCOUNTER 2023-10-11 23:25 | Emergency (ER) | payer MEDICARE, SELFPAY ==
[2023-10-11 23:33] VITALS: BP 94/71; PULSE 104; RESP 16; TEMP 35.6; O2SAT 97
--- NOTE | 2023-10-11 23:56 | ED.GENADUL_ITS ---
HPI General Mode of arrival: ambulatory . Date/Time Provider Initiated Documentation: 10/11/23 23:28 . Information obtained by: patient and family (primary care nurse) . History of Present Illness 78 year old M presents to the emergency department with the chief complaint of Left lower leg pain, described as moderate, Quality is described as aching, Patient started experiencing this hour(s) (1) and it has been constant. No relieving factors improve symptom(s), No exacerbating factors reported . Patient notes no other symptoms.. Patient did receive the following treatments prior to arrival, none Related Data Home Medications Medication Instructions Recorded Confirmed pramipexole 0.25 mg tablet 0.25 mg PO DAILY #30 tabs 07/24/23 10/04/23 dexamethasone 1 mg tablet 1 mg PO DAILY #30 tabs 10/01/23 10/04/23 lorazepam 0.5 mg tablet 0.5 mg PO BID 10/01/23 10/04/23 quetiapine 100 mg tablet (Seroquel) 100 mg PO DAILY 10/01/23 10/04/23 aspirin 81 mg tablet,delayed 81 mg PO DAILY 10/04/23 10/04/23 release (Adult Low Dose Aspirin) atorvastatin 20 mg tablet 20 mg PO DAILY 10/04/23 10/04/23 melatonin 5 mg capsule 5 mg PO QHS 10/04/23 10/04/23 metformin 500 mg tablet 500 mg PO BID 10/04/23 10/04/23 Previous Rx's Medication Instructions Recorded pramipexole 0.25 mg tablet 0.25 mg PO DAILY #30 tabs 07/24/23 dexamethasone 1 mg tablet 1 mg PO DAILY #30 tabs 10/01/23 Allergies Allergy/AdvReac Type Severity Reaction Status Date / Time No Known Allergies Allergy Unverified 10/01/23 10:39 General Stated Complaint: Orthopedic JOANA: 4 Review of Systems All systems reviewed & are unremarkable except as noted in HPI and below Constitutional Constitutional: Denies chills and Denies fever(s) Cardiovascular Cardiovascular: Denies chest pain and Denies dyspnea Respiratory Respiratory: Denies cough and Denies dyspnea Gastrointestinal Gastrointestinal: Denies abdominal pain, Denies nausea and Denies vomiting Musculoskeletal Musculoskeletal: Denies joint swelling Exam Const General: no acute distress Orientation: alert HENMT Head: normal to inspection Ears: external ears normal General nose exam: external nose normal Mouth: moist mucous membranes Eyes General: appearance normal, both eyes and all related structures Neck Neck: normal visual inspection Resp Effort & Inspection: normal respiratory effort and able to speak in complete sentences Cardio Rate: regular rate Skin General skin exam: no rashes or lesions noted Neuro General: patient alert and patient oriented x3 Extrem General: capillary refill normal and no cyanosis Psych Mental Status: mental status grossly normal Course Vital Signs Vital signs: Vital Signs Temperature 35.6 C L 10/11/23 23:33 Pulse 104 H 10/11/23 23:33 Respiratory Rate 16 10/11/23 23:33 Blood Pressure 94/71 L 10/11/23 23:33 Pulse Oximetry 97 10/11/23 23:33 Temperature 35.6 C L 10/11/23 23:33 Temperature Source Temporal Artery Scan 10/11/23 23:33 Pulse 104 H 10/11/23 23:33 Respiratory Rate 16 10/11/23 23:33 Respiratory Effort Normal 10/11/23 23:39 Blood Pressure 94/71 L 10/11/23 23:33 Pulse Oximetry 97 10/11/23 23:33 Oxygen Delivery Method Room Air 10/11/23 23:33 Oxygen Flow Rate 0 10/11/23 23:33 Medical Decision Making 78-year-old male with a history of bipolar, dementia, who comes in with left ankle pain. Given his dementia his history is limited but he states that he was brushing his teeth and he felt a pop in his left ankle area. Denies any falls, child welfare specialist states that he did not hear him fall. He is alert and oriented to person place and time on arrival. Pain provide other details about the injury. He localizes the pain to the left posterior distal leg at the insertion site of the Achilles. Feel he has a palpable defect here in his calf does appear abnormal compared to the right with it being more superior on the leg. Range of motion of the ankle. When James test performed there is no plantarflexion. Suspect Achilles tendon rupture will obtain x-rays to evaluate for associated fracture. Patient stable, x-ray does not show any acute fractures but does show a small ankle joint effusion. Patient is stable, I placed him in a posterior leg splint, he has walker so he does not apply any weight onto the leg, and will refer to orthopedics for evaluation due to concern for Achilles tendon rupture. Differential Diagnosis Differential Diagnosis: Achilles tendon rupture, fracture Imaging Data Radiologic Study: Attestation: I personally reviewed and interpreted this imaging study as follows: Imaging: X-Ray Radiologist's impression: IMPRESSION: Findings suspicious for lateral talar dome osteochondral lesion. Small ankle joint effusion. Quality:SDOH Health Related Social Needs: No Data to Display PFSH All Active Problems (Updated 10/12/23 @ 01:04 by Rupert Velez MD) Achilles tendon injury (Acute) Hyponatremia (Acute) Palliative care patient (Acute) Bipolar disorder (Acute) KERVIN (acute kidney injury) (Acute) 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) of both ears (Acute) Acute pericarditis (Acute ~1968) Medical History Heart disease Mental and behavioral problem Memory loss Urge incontinence Hyperglycemia Essential hypertension Generalized anxiety disorder Impaired fasting glucose Intertrigo Right-sided chest pain Altered mental status Left arm pain 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 Brother Heart disease Grandfather Neoplasm STOMACH Grandfather Ruptured appendix Grandmother No problems noted. Grandmother No problems noted. Daughter No problems noted. Daughter No problems noted. Social History Smoking/Tobacco Use Status: Never Smoking risk assessment performed?: Yes Alcohol Intake: former Drug use: Current Sobriety Substance use type: does not use Housing: assisted living facility Do you feel safe in your relationship?: Yes Discharge Plan Disposition Patient Disposition: Home Condition: Stable Discharge Details Clinical Impression: Achilles tendon injury Primary Care Provider: Missy Moon ED Provider: Rupert Velez Home Meds and New Rx's Prescriptions: Continued quetiapine [Seroquel] 100 mg tablet 100 mg PO DAILY dexamethasone 1 mg tablet 1 mg PO DAILY Qty: 30 0RF pramipexole 0.25 mg tablet 0.25 mg PO DAILY Qty: 30 0RF aspirin [Adult Low Dose Aspirin] 81 mg tablet,delayed release (DR/EC) 81 mg PO DAILY atorvastatin 20 mg tablet 20 mg PO DAILY metformin 500 mg tablet 500 mg PO BID melatonin 5 mg capsule 5 mg PO QHS lorazepam 0.5 mg tablet 0.5 mg PO BID Discharge Instructions Additional Instructions: You should not be applying any weight on your left leg until cleared by orthopedics Call orthopedics to arrange for follow-up appointment If you feel more ill, or have new pain such as severe abdominal pain or chest pain return to the emergency department for evaluation Referrals: Jose Carlos Alarcon MD [ [facility] STAFF PHYSICIAN] -
--- NOTE | 2023-10-12 00:01 | DI.RAD_ITS ---
Exam(s) XR ANKLE LT COMPLETE EXAM: XR ANKLE LT COMPLETE CLINICAL HISTORY: pain. TECHNIQUE: 2D digital imaging was performed. COMPARISON: No exams were available for comparison FINDINGS: 3 views No evidence of fracture nor widening the ankle mortise. Subtle lucency in the lateral aspect of the talar dome noted. No obvious degenerative changes in the tibiotalar and subtalar joints. Vascular c alcifications noted in the dorsalis pedis artery. IMPRESSION: There is a subtle area of lucency in the lateral aspect of the talar dome, possibly representing subt le osteochondral defect. No obvious degenerative changes in the tibiotalar joint space. If clinical ly indicated can be further studied with MRI. DATA REPOSITORY: RADIATION DOSE DELIVERED:
--- NOTE | 2023-10-12 00:44 | DI.VRAD_ITS ---
PROCEDURE INFORMATION: Exam: XR Left Ankle Exam date and time: 10/12/2023 12:14 AM Age: 78 years old Clinical indication: Left; Patient HX: L ankle pain, no trauma TECHNIQUE: Imaging protocol: Radiologic exam of the left ankle. Views: 3 or more views. COMPARISON: No relevant prior studies available. FINDINGS: Bones/joints: Tiny Achilles enthesophyte. Small ankle joint effusion. There is a lucency at the lateral aspect of the talar dome suggestive of an osteochondral lesion. Soft tissues: There is soft tissue swelling around the ankle joint. Vasculature: There are vascular calcifications. IMPRESSION: Findings suspicious for lateral talar dome osteochondral lesion. Small ankle joint effusion. Dictated and Authenticated by: Andre Ghosh MD. Ordering:VIDAL Emery MD
== END 2023-10-12 01:39 | disposition home or self-care (01) ==
PROVIDERS: Emergency Provider Emergency Medicine; PCP Family Medicine
DX: S86.002A Unspecified injury of left Achilles tendon, initial encounter (principal); M25.472 Effusion, left ankle; F03.90 Unspecified dementia, unspecified severity, without behavioral disturbance, psychotic disturbance, mood disturbance, and anxiety; I10 Essential (primary) hypertension; I25.10 Atherosclerotic heart disease of native coronary artery without angina pectoris; E78.5 Hyperlipidemia, unspecified; Z79.82 Long term (current) use of aspirin; X58.XXXA Exposure to other specified factors, initial encounter
CPT/HCPCS: 99283; 73610

== ENCOUNTER 2023-10-17 11:36 | Emergency (ER) | payer MEDICARE, SELFPAY ==
[2023-10-17 11:44] VITALS: BP 190/92; PULSE 97; RESP 18; TEMP 36.8; O2SAT 99
--- NOTE | 2023-10-17 11:52 | W.ED.GENAD ---
Discharge Plan Disposition Patient Disposition: Home Condition: Good Discharge Details Clinical Impression: Injury of shoulder, Contusion of right shoulder Primary Care Provider: Missy Moon ED Provider: Chioma Greenfield Home Meds and New Rx's Prescriptions: New lidocaine [Lidoderm] 5 % adhesive patch,medicated 1 patch topical DAILY PRN (Reason: pain) Qty: 15 0RF Rx Instructions: leave on most painful area for up to 12 hrs Continued quetiapine [Seroquel] 100 mg tablet 100 mg PO DAILY dexamethasone 1 mg tablet 1 mg PO DAILY Qty: 30 0RF pramipexole 0.25 mg tablet 0.25 mg PO DAILY Qty: 30 0RF aspirin [Adult Low Dose Aspirin] 81 mg tablet,delayed release (DR/EC) 81 mg PO DAILY atorvastatin 20 mg tablet 20 mg PO DAILY metformin 500 mg tablet 500 mg PO BID melatonin 5 mg capsule 5 mg PO QHS lorazepam 0.5 mg tablet 0.5 mg PO BID Discharge Instructions Instructions: Shoulder Sprain (ED), Shoulder Pain (ED) Additional Instructions: Your x-rays were reassuring here today. Please encourage hydration. Encourage gentle range of motion. Referral to physical therapy is attached. May continue with ice to help with pain. Please use Tylenol, 1000 mg 3 times daily. Do not take more than 3,000 milligrams daily. May use the Lidoderm patches as prescribed to help with pain. Please follow with your primary care 1 to 2 weeks for reevaluation. If you develop any new or worsening symptoms to seek care urgently once again. Stand Alone Forms: Physical Therapy Referral Referrals: Missy Moon [Primary Care Provider] - [facility] Date/Time Provider Initiated Documentation: 10/17/23 11:52. Limitations to Documentation: no limitations. Information obtained by: patient, family and RN notes reviewed. History of Present Illness 78 year old M presents to the emergency department with the chief complaint of right shoulder pain, described as severe, Quality is described as aching, and is localized to the right and upper extremity. Patient extremity (to right elbow). Patient started experiencing this day(s) and it has been constant. Immobilization improves symptom(s), Movement worsens symptoms . Patient notes no other symptoms.. Patient did receive the following treatments prior to arrival, none Related Data Home Medications Medication Instructions Recorded Confirmed pramipexole 0.25 mg tablet 0.25 mg PO DAILY #30 tabs 12/02/23 02/25/24 dexamethasone 1 mg tablet 1 mg PO DAILY #30 tabs 10/01/23 10/17/23 lorazepam 0.5 mg tablet 0.5 mg PO BID 10/01/23 10/17/23 quetiapine 100 mg tablet (Seroquel) 100 mg PO DAILY 10/01/23 10/17/23 aspirin 81 mg tablet,delayed 81 mg PO DAILY 10/04/23 10/17/23 release (Adult Low Dose Aspirin) atorvastatin 20 mg tablet 20 mg PO DAILY 10/04/23 10/17/23 melatonin 5 mg capsule 5 mg PO QHS 10/04/23 10/17/23 metformin 500 mg tablet 500 mg PO BID 10/04/23 10/17/23 lidocaine 5 % topical patch 1 patch topical DAILY PRN pain #15 10/17/23 (Lidoderm) ea Previous Rx's Medication Instructions Recorded pramipexole 0.25 mg tablet 0.25 mg PO DAILY #30 tabs 07/24/23 dexamethasone 1 mg tablet 1 mg PO DAILY #30 tabs 10/01/23 lidocaine 5 % topical patch 1 patch topical DAILY PRN pain #15 10/17/23 (Lidoderm) ea Allergies Allergy/AdvReac Type Severity Reaction Status Date / Time No Known Allergies Allergy Unverified 10/17/23 13:19 General Stated Complaint: Orthopedic JOANA: 4 Review of Systems Constitutional Constitutional: Reports as per HPI, Denies fever(s), Denies headache(s) and Denies weakness ENT Ears, Nose, Mouth, and Throat: Denies headache(s) Cardiovascular Cardiovascular: Reports as per HPI Respiratory Respiratory: Reports as per HPI and Denies cough Musculoskeletal Musculoskeletal: Reports as per HPI and Denies tingling Integumentary/Breasts Skin/Breast: Reports as per HPI, Denies rash and Denies wounds Neurologic Neurologic: Reports as per HPI, Denies headache(s), Denies tingling, Denies paresthesias and Denies weakness Exam Const General: cooperative, healthy appearing, comfortable, no acute distress, well developed and well groomed Nutritional Appearance: average body habitus and well nourished Orientation: alert and awake Resp Effort & Inspection: normal respiratory effort, able to speak in complete sentences and no respiratory distress Cardio Rate: regular rate Rhythm: regular rhythm Skin General skin exam: no rashes or lesions noted Lesions: no lesions Rashes: no rashes Trauma: no lacerations or abrasions Neuro General: patient alert and patient awake Cognition: normal cognition Speech: speech normal Gait: other (nonambulatory d/t left Achillese injury) Motor: muscle tone normal throughout Sensory Exam: no sensory deficits noted Extrem Shoulder/upper arm images: 1. Area of tenderness. He has 2+ distal pulses. Full range of motion of the elbow, wrist, hand. Axillary nerve testing intact. No palpable deformity or pain over the clavicle or scapula. No C-spine pain. Swelling noted near the cervical indicated. Also area of maximal discomfort. Course Vital Signs Vital signs: Vital Signs Temperature 36.8 C 10/17/23 11:44 Pulse 97 H 10/17/23 11:44 Respiratory Rate 18 10/17/23 11:44 Blood Pressure 190/92 H 10/17/23 11:44 Pulse Oximetry 99 10/17/23 11:44 Temperature 36.8 C 10/17/23 11:44 Temperature Source Temporal Artery Scan 10/17/23 11:44 Pulse 97 H 10/17/23 11:44 Respiratory Rate 18 10/17/23 11:44 Blood Pressure 190/92 H 10/17/23 11:44 Blood Pressure Position Sitting 10/17/23 11:44 Pulse Oximetry 99 10/17/23 11:44 Oxygen Delivery Method Room Air 10/17/23 11:44 Oxygen Flow Rate 0 10/17/23 11:44 Medical Decision Making Patient is a pleasant 78-year-old [id number] male presenting today with chief complaint of right shoulder pain. Past medical history significant for hypertension, anxiety, atherosclerosis, RLS, hypothyroidism, he states that he was sitting on his rolling walker,. Had injury to the left foot and has a splint in place. Did not lock the wheels and accidentally went over backwards landing on the right shoulder. States he has been having pain since then, particular with movement. Indicates the lateral upper aspect of the shoulder as area of pain but states that it can radiate into the elbow. He denies any numbness or tingling. No john weakness. Patient does have a resting tremor. States that this is unchanged. Denies any head injury, neck pain. Did not lose consciousness. Denies other injury at the time of the incidents. On exam, patient appears nontoxic. He does appear uncomfortable with movements. I do not see any ecchymosis or significant deformity but patient does have swelling over the left upper aspect of the humerus. He has 2+ distal pulses. Neurologically intact, no axillary nerve dysfunction. Forage motion of the elbow, wrist, hand with 5 out of 5 complaint evaluation officer strength. No pain along the C-spine, good range of motion of the cervical spine. No palpable deformity of the clavicle or the AC joint. Will obtain x-ray for evaluation of possible fracture or dislocation. FINDINGS: Bones/joints: No acute fracture or subluxation identified. Irregularity involving the cortex at the superolateral aspect of the humeral head may relate to chronic impingement or remote trauma. Please correlate with clinical exam. Mild chronic DJD at the glenohumeral joint. Soft tissues: No pathologic soft tissue calcifications are seen. IMPRESSION: No acute fracture or subluxation identified FINDINGS: Bones/joints: No acute fracture of the right humerus is identified. Please note that the distal humerus is not imaged in a true lateral projection. Soft tissues: Normal. IMPRESSION: No acute fracture detected. Discussed with patient and manager urgent care. He requested narcotic pain medication. He is not maximizing APAP, nothing topical. With his age, comorbidities and medications, I do not feel that these are a safe option and will hold off. Will give APAP and Lidoderm patch here. Will prescribe further. Encouared supportive care. Encoaurged ROM. He is quite tender, concerned for possible rotator cuff injury but unable to truly assess given the acuity of the injury. Will also refer to PT. will give sling to help with support/pain management but he is to come out of this for ROM. Return precautions discussed. All of his questions and concerns were addressed, he is in agreement with this plan. 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 (Acute) Acute pericarditis (Acute ~1969) Medical History Heart disease Mental and behavioral problem Memory loss Urge incontinence Hyperglycemia Essential hypertension Generalized anxiety disorder Impaired fasting glucose Intertrigo Right-sided chest pain Altered mental status Left arm pain Ventricular ectopy Atherosclerotic heart disease of [place] coronary artery without angina pectoris Recurrent major depressive disorder RLS (restless legs syndrome) Hearing loss Insomnia Hypothyroidism Hypertension Mixed hyperlipidemia History of behavioral and mental health problems Abnormal EKG Left bundle-branch block Family history of prostate cancer Acute hyponatremia Hypomania Surgical History Vasectomy Stent placement 09/10/16-[facility] Arthroplasty of knee right Appendectomy Family History Mother Diabetes Essential hypertension Father Diabetes Neoplasm PROSTATE Sister Diabetes Neoplasm MULTI-MYELOMA Sister Diabetes Essential hypertension Sister No problems noted. Brother Heart disease Grandfather Neoplasm STOMACH Grandfather Ruptured appendix Grandmother No problems noted. Grandmother No problems noted. Daughter No problems noted. Daughter No problems noted. Social History Smoking/Tobacco Use Status: Never Smoking risk assessment performed?: Yes Alcohol Intake: former Drug use: Current Sobriety Substance use type: does not use Housing: assisted living facility Do you feel safe in your relationship?: Yes
--- NOTE | 2023-10-17 13:15 | DI.RAD_ITS ---
Exam(s) XR SHOULDER RT COMPLETE 2+V EXAM: XR SHOULDER RT COMPLETE 2+V CLINICAL HISTORY: fall, lateral pain. TECHNIQUE: 2D digital imaging was performed. COMPARISON: No exams were available for comparison FINDINGS: Five views. No evidence of acute fracture or dislocation. No soft tissue calcifications in the subacromial space . No diminution of the subacromial space although there is an os ossific ridge on the undersurface o f the chromium which is probably resulting in an element of impingement upon the rotator cuff mechani sm. Also noted is cortical irregularity in the lateral aspect of the humeral head which is probably related to multiple degenerative subarticular cysts. There does not appear to be an obvious [place] hs deformity as seen on the axial image. AC joint appears unremarkable. IMPRESSION: No acute fracture or dislocation. Other findings as above. DATA REPOSITORY: RADIATION DOSE DELIVERED:
--- NOTE | 2023-10-17 13:15 | DI.RAD_ITS ---
Exam(s) XR HUMERUS RT EXAM: XR HUMERUS RT CLINICAL HISTORY: fall, lateral pain. TECHNIQUE: 2D digital imaging was performed. COMPARISON: No exams were available for comparison FINDINGS: 3 views No evidence of fracture or dislocation. Bone density normal. No osseous lesions. No radiopaque for eign body. IMPRESSION: No significant acute osseous findings in the right humerus. DATA REPOSITORY: RADIATION DOSE DELIVERED:
--- NOTE | 2023-10-17 13:23 | DI.VRAD_ITS ---
PROCEDURE INFORMATION: Exam: XR Right Shoulder Exam date and time: 10/17/2023 12:52 PM Age: 78 years old Clinical indication: Injury or trauma; Fall TECHNIQUE: Imaging protocol: Radiologic exam of the right shoulder. Views: 2 or more views. COMPARISON: CR XR CHEST 2V PA LATERAL 10/04/2023 4:20 PM FINDINGS: Bones/joints: No acute fracture or subluxation identified. Irregularity involving the cortex at the superolateral aspect of the humeral head may relate to chronic impingement or remote trauma. Please correlate with clinical exam. Mild chronic DJD at the glenohumeral joint. Soft tissues: No pathologic soft tissue calcifications are seen. IMPRESSION: No acute fracture or subluxation identified. Dictated and Authenticated by: Sam Lisa MD. Ordering:SANDRA Bedolla MD
--- NOTE | 2023-10-17 13:25 | DI.VRAD_ITS ---
PROCEDURE INFORMATION: Exam: XR Right Humerus Exam date and time: 10/17/2023 12:57 PM Age: 78 years old Clinical indication: Pain; Upper arm; Right; Patient HX: Fall TECHNIQUE: Imaging protocol: Radiologic exam of the right humerus. Views: 2 or more views. COMPARISON: CR XR SHOULDER RT COMPLETE 2+V 10/17/2023 12:52 PM FINDINGS: Bones/joints: No acute fracture of the right humerus is identified. Please note that the distal humerus is not imaged in a true lateral projection. Soft tissues: Normal. IMPRESSION: No acute fracture detected. Dictated and Authenticated by: Sam Lisa MD. Ordering:SANDRA Bedolla MD
[2023-10-17] MEDS: Lidocaine 5% Patch 1 PATCH TP (14:03)
[2023-10-17] MEDS: Acetaminophen 325 MG TAB 650 MG PO (14:03)
== END 2023-10-17 13:59 | disposition home or self-care (01) ==
PROVIDERS: Emergency Provider Physician Assistant; PCP Family Medicine
DX: S40.011A Contusion of right shoulder, initial encounter (principal); I10 Essential (primary) hypertension; I25.10 Atherosclerotic heart disease of native coronary artery without angina pectoris; W05.0XXA Fall from non-moving wheelchair, initial encounter; Y93.89 Activity, other specified; Y92.89 Other specified places as the place of occurrence of the external cause
CPT/HCPCS: 99283; 73030; 73060

== ENCOUNTER → 2023-10-19 15:15 | Outpatient (BNVA) | payer MEDICARE, SELFPAY | PROVIDERS: PCP Family Medicine; Referring Provider Family Medicine; Visit Provider Student in an Organized Health Care Education/Training Program | DX: S86.012A Strain of left Achilles tendon, initial encounter (principal); X58.XXXA Exposure to other specified factors, initial encounter; M75.101 Unspecified rotator cuff tear or rupture of right shoulder, not specified as traumatic | CPT/HCPCS: 99214 ==

== ENCOUNTER → 2023-11-03 02:50 | Outpatient (CLI) | payer MEDICARE, SELFPAY ==
--- NOTE | 2023-11-03 07:30 | DI.MRI_ITS ---
Exam(s) MR LOWER JOINT LT WO EXAM: MR LOWER JOINT LT WO CLINICAL HISTORY: EVAL ACHILLES TENDON,rupture lt achilles tendon, S86.012a TECHNIQUE: Multiplanar multisequence MRI was performed without intravenous contrast. COMPARISON: CR,XR XR ANKLE LT COMPLETE from 10/12/2023 FINDINGS: BONES/JOINTS: No fracture or contusion pattern. No bone lesions identified. The talar dome is smooth. The ankle mortise is maintained. There is a small amount of fluid in the ankle joint. LIGAMENTS: The tibiofibular and calcaneofibular ligaments are intact. The talofibular ligaments are i ntact. The deltoid ligament is intact. The syndesmosis is unremarkable. Sinus tarsi is normal. MUSCULOTENDINOUS STRUCTURES: Achilles tendon: There is a complete tear of the Achilles tendon 5 cm proximal to its insertion onto the calcaneus. There is a gap of 2.5 cm maximally. Slight retraction of the proximal tendon is note d. There is surrounding edema in the soft tissues. Plantar fascia: Unremarkable. Anterior Extensor tendons: Unremarkable. Posterior Tibialis: Unremarkable. Flexor Digitorum longus: Unremarkable. Flexor Hallucis longus: Unremarkable. Peroneus longus: Unremarkable. Peroneus brevis:Unremarkable. SOFT TISSUES: There is edema seen in the soft tissues surrounding the lower leg and ankle. No focal fluid collection is seen. OTHER FINDINGS: None. IMPRESSION: 1. Complete tear of the Achilles tendon 5 cm proximal to its insertion onto the calcaneus. There is a gap of 2.5 cm maximally with slight retraction of the proximal tendon. 2. Marked edema in the soft tissues around the ankle and hindfoot. DATA REPOSITORY:
== END ==
PROVIDERS: PCP Family Medicine; Visit Provider Student in an Organized Health Care Education/Training Program
DX: S86.012A Strain of left Achilles tendon, initial encounter (principal); X58.XXXA Exposure to other specified factors, initial encounter
CPT/HCPCS: 73721

== ENCOUNTER 2023-11-07 13:45 | Emergency (ER) | payer MEDICARE, SELFPAY ==
[2023-11-07 13:42] VITALS: BP 169/91; PULSE 104; RESP 16; TEMP 36.3; O2SAT 97
[2023-11-07 13:50] VITALS: RESP 16
--- NOTE | 2023-11-07 14:17 | ED.GENADUL_ITS ---
Discharge Plan Disposition Patient Disposition: Home Condition: Good Discharge Details Clinical Impression: DVT (deep venous thrombosis) Primary Care Provider: Missy Moon ED Provider: Kiki Morales Home Meds and New Rx's Prescriptions: Continued quetiapine [Seroquel] 100 mg tablet 100 - 200 mg PO BID Qty: 90 0RF Rx Instructions: give 1 tab am and 2 tabs at HS palliative care patient divalproex [Depakote] 250 mg tablet,delayed release (DR/EC) 250 mg PO TID Qty: 90 0RF pramipexole 0.25 mg tablet 0.25 mg PO DAILY Qty: 30 0RF metformin 500 mg tablet 500 mg PO BID melatonin 5 mg capsule 5 mg PO QHS lorazepam 0.5 mg tablet 0.5 mg PO BID trazodone 50 mg tablet 50 mg PO DAILY Patient Comments: TAKE ONE TABLET BY MOUTH AT BEDTIME Held aspirin [Adult Low Dose Aspirin] 81 mg tablet,delayed release (DR/EC) 81 mg PO DAILY Hold Instructions: Resume on 11/09/23. Do not take until after your ultrasound and after talking to your primary care doctor Discharge Instructions Instructions: Deep Vein Thrombosis (ED) Additional Instructions: It is possible you have a blood clot in your leg. You were given a blood thinner here in the ED in case this is true. You need to get an ultrasound tomorrow to see if you actually have a blood blot- please return to the hospital for this. Do not take your aspirin until after you talk to your primary care doctor. If you have a blood clot you may need to continue taking a blood thinner. You will need to discuss the results of your ultrasound with your primary care doctor tomorrow. IF YOU ARE NOT ABLE TO TALK TO YOUR PRIMARY CARE DOCTOR TOMORROW ABOUT YOUR ULTRASOUND OR YOU ARE UNABLE TO GET YOUR ULTRASOUND PLEASE RETURN TO THE EMERGENCY DEPARTMENT FOR FURTHER TREATMENT Return to the emergency department for new or worsening symptoms including fev er, difficulty breathing, chest pain, or if you have any other concerns. Referrals: Missy Moon [Primary Care Provider] - Discharge Data Discharge Date/Time-TO BE ENTERED AT DEPARTURE: 11/07/23 17:15 HPI General Mode of arrival: EMS . Date/Time Provider Initiated Documentation: 11/07/23 13:50 . Limitations to Documentation: no limitations . Information obtained by: patient, family and old records reviewed . HPI Narrative: 78yo M with dementia, HTN, recent left achilles tendon rupture 10/11/23 presenting for RLE swelling. Caregiver noticed swelling today. Otherwise no new symptoms. Patient denies any pain, fevers, chills, shortness of breath, chest pain, numbness, tinlging, or any other concerns. Related Data Home Medications Medication Instructions Recorded Confirmed pramipexole 0.25 mg tablet 0.25 mg PO DAILY #30 tabs 07/24/23 11/07/23 lorazepam 0.5 mg tablet 0.5 mg PO BID 10/01/23 11/07/23 aspirin 81 mg tablet,delayed 81 mg PO DAILY 10/04/23 11/07/23 release (Adult Low Dose Aspirin) melatonin 5 mg capsule 5 mg PO QHS 10/04/23 11/07/23 metformin 500 mg tablet 500 mg PO BID 10/04/23 11/07/23 divalproex 250 mg tablet,delayed 250 mg PO TID #90 tabs 10/29/23 11/07/23 release (Depakote) quetiapine 100 mg tablet (Seroquel) 100 - 200 mg (1 - 2 x 100 mg) PO 10/29/23 11/07/23 BID #90 tabs trazodone 50 mg tablet 50 mg PO DAILY 11/07/23 11/07/23 Previous Rx's Medication Instructions Recorded pramipexole 0.25 mg tablet 0.25 mg PO DAILY #30 tabs 07/24/23 divalproex 250 mg tablet,delayed 250 mg PO TID #90 tabs 10/29/23 release (Depakote) quetiapine 100 mg tablet (Seroquel) 100 - 200 mg (1 - 2 x 100 mg) PO 10/29/23 BID #90 tabs Allergies Allergy/AdvReac Type Severity Reaction Status Date / Time No Known Allergies Allergy Unverified 11/07/23 13:48 General Stated Complaint: Vascular JOANA: 3 Review of Systems Narrative: see HPI Exam Narrative Exam Narrative: General: Alert, well appearing, well nourished, in no acute distress. Head: Normocephalic, atraumatic Neck: Trachea midline, ?Neck supple. Cardiac: ?RRR, no murmurs appreciated Resp: No respiratory distress. CTAB. Abd: ?Soft, non-distended, nontender Extremities: ?LLE 1+ pitting edema to knee. RLE 3+ pitting edema to knee, warm to the touch, posterior calf TTP. DP pulses present bilaterally. Sensation in tact and symmetric bilaterally, brisk capillary refill. Neurologic: GCS 14. ? Moves all extremities against gravity Course Vital Signs Vital signs: Vital Signs Temperature 36.3 C L 11/07/23 13:42 Pulse 104 H 11/07/23 13:42 Respiratory Rate 16 11/07/23 13:42 Blood Pressure 169/91 H 11/07/23 13:42 Pulse Oximetry 97 11/07/23 13:42 Temperature 36.3 C L 11/07/23 13:42 Temperature Source Skin 11/07/23 13:42 Pulse 104 H 11/07/23 13:42 Respiratory Rate 16 11/07/23 13:42 Blood Pressure 169/91 H 11/07/23 13:42 Pulse Oximetry 97 11/07/23 13:42 Oxygen Delivery Method Room Air 11/07/23 13:42 Oxygen Flow Rate 0 11/07/23 13:42 Pain Level 0 11/07/23 13:42 Medical Decision Making 78yo M with dementia, HTN, recent left achilles tendon rupture 10/11/23 presenting for RLE swelling x 1 day. Hypertensive and slightly tachycardiac on arrival. Exam with LLE 1+ pitting edema to knee, RLE 3+ pitting edema to knee, warm to the touch, posterior calf TTP. Neurovascular intact. Exam not concerning for ischemia, does not appear cellulitic; given marked decrease in mobility recently 2/t to achilles rupture high level of suspicion for DVT. Unable to get US over the weakened. Labs reviewed as below, CBC with mild anemia to 11.9 of uncertain significance, CMP with no actionable abnormalities, BNP mildly elevated at 421 not suggestive of severe heart failure excerbation, dimer markedly elevated at >4000. Lower suspicion for PE as patient as no shortness of breath, hypoxia, or chest pain however with tachycardia on arrival CTA for PE ordered and indepdnetly reviewed, no large pulmonary embolism on my view, agree with radiology read below. Advised to followup with PCP regarding pulmonary findings; with new shortness of breath, hypoxia, or fever, would not treat for pneumonia at this time. With patient age and on aspirin not low-risk for bleeding events however with clinical DVT, patient symptomatic, and his limi clint mobility increasing risk for progression, concerned for worsening and possible embolic event. Will give single dose of lovenox here in the ED and order ultrasound for tomnorrow, defer ultimate decision on anticoagulation to patient's PCP. Strict instructions to obtain ultrasound tomorrow and followup with PCP same-day were given to patient's caregiver who verbalized understanding. They were instructed to return to the emergency department should there be any difficultly in following through with this plan. Discharge instructions and return precautions were reviewed with patient and caregiver and who verbalized understanding. All questions were answered and they are in full agreement with the plan. Medical Records Medical records reviewed: Yes I reviewed the patient's medical records. Medical records narrative: ortho note 10/19/23 Imaging Data Radiologic Study: Imaging: CT Scan Radiologist's impression: IMPRESSION: 1. No evidence of acute pulmonary emboli. No evidence of pulmonary infarction. 2. There are small pleural effusions, right larger than left. Mild infiltrate in both lung fung as described above. No ominous masses in either lung field and no intrathoracic adenopathy. 3. Mild cardiomegaly. Dilated ascending thoracic aorta which measures 4.3 cm. No evidence of aortic dissection. Lab Data Lab results reviewed: Yes I reviewed the patient's lab results. Labs: Laboratory Tests Range/Units 11/07/23 14:18 WBC (4.4-10.8) 10^3/uL 6.00 RBC (4.36-5.78) 10^6/uL 3.78 L Hgb (13.5-17.5) g/dL 11.9 L Hct (40.0-50.0) % 36.0 L MCV (80-95) fL 95 MCH (27.0-33.0) pg 31.5 MCHC (32.0-36.0) % 33.1 RDW (11.8-14.1) % 13.9 Plt Count (130-400) 10^3/uL 150 MPV (8.0-11.0) fL 9.0 Immature Gran % 0.7 Neutrophils % 66.7 Lymphocytes % 16.5 Monocytes % 13.8 Eosinophils % 2.0 Basophils % 0.3 Nucleated RBC % (0.0-0.3) % 0.0 Absolute Neutrophils (1.2-6.7) 10^3/uL 4.00 Absolute Lymphocytes (1.2-3.4) 10^3/uL 0.99 L Absolute Monocytes (0.1-0.8) 10^3/uL 0.83 H Absolute Eosinophils (0.0-0.7) 10^3/uL 0.12 Absolute Basophils (0.0-0.2) 10^3/uL 0.02 PT (9.1-11.1) sec 10.5 INR (0.9-1.1) 1.0 APTT (23.6-32.8) sec 24.5 D-Dimer (<500) ng/mlFEU 4064 H Sodium (136-145) mmol/L 143 Potassium (3.5-5.1) mmol/L 3.8 Chloride (98-107) mmol/L 106 Carbon Dioxide (21.0-32.0) mmol/L 28.5 Anion Gap (3-11) mmol/L 8.5 BUN (7-18) mg/dL 19 H Creatinine (0.70-1.30) mg/dL 1.1 Est GFR (CKD-EPI 2020) (mL/min/1.73m2) 68.71 Glucose (74-106) mg/dL 103 Calcium (8.5-10.1) mg/dL 8.7 Total Bilirubin (0.2-1.0) mg/dL 0.9 AST (15-37) U/L 31 ALT (16-63) U/L 41 Alkaline Phosphatase (46-116) U/L 81 NT-Pro-B Natriuret Pep (<300) pg/mL 421 H Total Protein (6.4-8.2) g/dL 6.0 L Albumin (3.4-5.0) g/dL 3.0 L Quality:SDOH Health Related Social Needs: Health related social needs personal safety PFSH All Active Problems (Updated 11/07/23 @ 16:37 by Kiki Morales MD) DVT (deep venous thrombosis) (Chronic) Right rotator cuff tear (Acute) Rupture of left Achilles tendon (Acute) Contusion of right shoulder (Acute) Injury of shoulder (Acute) Achilles tendon injury (Acute) Palliative care patient (Acute) Bipolar disorder (Acute) KERVIN (acute kidney injury) (Acute) 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) of both ears (Acute) Acute pericarditis (Acute ~1968) Medical History Abnormal EKG Acute hyponatremia Altered mental status Atherosclerotic heart disease of [place] coronary artery without angina pectoris Essential hypertension Family history of prostate cancer Generalized anxiety disorder Hearing loss Heart disease History of behavioral and mental health problems Hyperglycemia Hypertension Hypomania Hypothyroidism Impaired fasting glucose Insomnia Intertrigo Left arm pain Left bundle-branch block Memory loss Mental and behavioral problem Mixed hyperlipidemia Recurrent major depressive disorder Right-sided chest pain RLS (restless legs syndrome) Urge incontinence Ventricular ectopy Surgical History Appendectomy [facility]thro[facility] of [facility] right [facility] Family History Mother Diabetes Essential hypertension Father Diabetes Neoplasm PROSTATE Sister Diabetes Neoplasm MULTI-MYELOMA Sister Diabetes Essential hypertension Sister No problems noted. Brother Heart disease Grandfather Neoplasm STOMACH Grandfather Ruptured appendix Grandmother No problems noted. Grandmother No problems noted. Daughter No problems noted. Daughter No problems noted. Social History Smoking/Tobacco Use Status: Never Smoking risk assessment performed?: Yes Alcohol Intake: former Drug use: Current Sobriety Substance use type: does not use Housing: other Do you feel safe in your relationship?: Yes Additional Social history: Live with care provider named Skyla Deutsch in [place]. PARRISH ARIAS 11/07/23
[2023-11-07 14:32] LABS: Abs Immature Grans 0.04 10^3/uL (0.0-0.06); Absolute Basophil Count 0.02 10^3/uL (0.0-0.2); Absolute Eosinophil Count 0.12 10^3/uL (0.0-0.7); Absolute Lymphocyte Count 0.99 10^3/uL (1.2-3.4); Absolute Monocyte Count 0.83 10^3/uL (0.1-0.8); Basophils % 0.3; HGB 11.9 g/dL (13.5-17.5); Immature Grans % 0.7; Lymphocytes % 16.5; MCH 31.5 pg (27.0-33.0); MCHC 33.1 % (32.0-36.0); MCV 95 fL (80-95); Monocytes % 13.8; Neutrophils % 66.7; Platelet Count 150 10^3/uL (130-400); RBC 3.78 10^6/uL (4.36-5.78); RDW 13.9 % (11.8-14.1)
[2023-11-07 14:47] LABS: PTT Activated 24.5 sec (23.6-32.8); Prothrombin Time 10.5 sec (9.1-11.1)
[2023-11-07 14:55] LABS: ALT 41 U/L (16-63); AST 31 U/L (15-37); Alkaline Phosphatase 81 U/L (46-116); Anion Gap 8.5 mmol/L (3-11); BUN 19 mg/dL (7-18); Bilirubin, Total 0.9 mg/dL (0.2-1.0); CO2 28.5 mmol/L (21.0-32.0); CREATININE 1.1 mg/dL (0.70-1.30); Calcium 8.7 mg/dL (8.5-10.1); Chloride 106 mmol/L (98-107); Estimated GFR 68.71 (mL/min/1.73m2); Glucose 103 mg/dL (74-106); NT-proBNP 421 pg/mL (<300); Potassium 3.8 mmol/L (3.5-5.1); Sodium 143 mmol/L (136-145)
--- NOTE | 2023-11-07 15:00 | DI.CT_ITS ---
Exam(s) CT CHEST PE CTA EXAM: CT CHEST PE CTA CLINICAL HISTORY: dimer+, possible RLE DVT. TECHNIQUE: Imaging Protocol: CT angiography of the chest was performed using pulmonary embolus josefina col. Multi planar reconstructions were performed. CONTRAST MATERIAL: Intravenous: Omnipaque 350 Contrast volume: 100 cc COMPARISON: CT CT ABDOMEN PELVIS W from 07/11/2023 FINDINGS: CHEST: PULMONARY ARTERIES: There are no intraluminal filling defects to suggest acute pulmonary emboli. LUNGS: There are small bilateral non loculated pleural effusions, right larger than left. There is m ild infiltrate in the posterior aspect of the right upper lobe. No findings in the right middle lobe . Mild infiltrate in the basal segments of the right lower lobe. Some platelike atelectasis noted i n the lingular segment of the left lung. Mild infiltrate noted in the posterior basal segment left l ower lobe. MEDIASTINUM: There is no hilar nor mediastinal adenopathy. Visualized thyroid unremarkable. CARDIAC: Mild cardiomegaly. No pericardial effusion.The diameter of the ascending thoracic aorta is enlarged, measuring 4.3 cm. There is no dissection. The diameter of the mid aortic arch is slightly prominent. Diameter of the descending thoracic aorta is upper normal. There is no evidence of aort ic dissection. There is no significant shift of the interventricular septum. PARTIALLY VISUALIZED UPPERMOST ABDOMEN: No obvious findings OSSEOUS: No significant osseous lesions.No fractures.. IMPRESSION: 1. No evidence of acute pulmonary emboli. No evidence of pulmonary infarction. 2. There are small pleural effusions, right larger than left. Mild infiltrate in both lung fung as described above. No ominous masses in either lung field and no intrathoracic adenopathy. 3. Mild cardiomegaly. Dilated ascending thoracic aorta which measures 4.3 cm. No evidence of aortic dissection. Called by myself to ER RADIATION DOSE DELIVERED: Total DLP DATA REPOSITORY: All CT scans at this facility are submitted to the National Radiology Data Registry (NRDR) Dose Index Registry (DIR) with the [employer] [place] [employer] (ACR). RADIATION OPTIMIZATION: All CT scans at this facility use at least one of these dose optimization te chniques: automated exposure control; mA and/or kV adjustment per patient size (includes targeted exa ms where dose is matched to clinical indication); or iterative reconstruction.
[2023-11-07 15:05] LABS: D-Dimer 4064 ng/mlFEU (<500)
[2023-11-07] MEDS: Normal Saline - Diluent 50 ML VIAL IJ (15:29)
[2023-11-07] MEDS: Omnipaque 350 MG/ML 100 ML BTL IJ (15:30)
[2023-11-07] MEDS: Normal Saline Flush 10 ML SYR IVP (15:46)
[2023-11-07] MEDS: Enoxaparin 120 MG/0.8 ML SYR SC (16:05)
--- NOTE | 2023-11-07 16:18 | DI.VRAD_ITS ---
PROCEDURE INFORMATION: Exam: CTA Chest With Contrast Exam date and time: 11/07/2023 3:37 PM Age: 78 years old Clinical indication: Pain; Other: Dimer+, possible rle dvt; Prior surgery; Surgery date: 6+ months; Surgery type: Stent 2016 TECHNIQUE: Imaging protocol: Computed tomographic angiography of the chest with contrast. Exam focused on the arteries. 3D rendering (Not supervised by radiologist): MIP and/or 3D reconstructed images were created by the technologist. Contrast material: OMNIPAQUE 350; Contrast volume: 75 ml; Contrast route: INTRAVENOUS (IV); COMPARISON: CR XR CHEST 2V PA LATERAL 10/04/2023 4:20 PM FINDINGS: Pulmonary arteries: Normal. No pulmonary emboli. Aorta: Ascending aorta upper limits of normal in diameter just below 4 cm. Lungs: There is mild bibasilar atelectasis. Pleural spaces: There are small bilateral pleural effusions. Heart: Cardiomegaly. Coronary arteries: Coronary artery calcifications/stents identified. Lymph nodes: Unremarkable. No enlarged lymph nodes. Bones/joints: Unremarkable. No acute fracture. Soft tissues: Unremarkable. IMPRESSION: 1. No evidence for pulmonary embolus. 2. Small bilateral pleural effusions with mild atelectasis. Dictated and Authenticated by: Leona Trent MD. Ordering:REBECCA Swanson MD
--- NOTE | 2023-11-07 16:51 | NUR.NOTE ---
Faxed to [facility] request for right lower extremity venous ultrasound for RLE warmth and swelling, positive ddimer. Follow up with PCP, to be done November 07. Nursing Note:
[2023-11-07 17:15] VITALS: BP 180/91; PULSE 98; RESP 18; O2SAT 98
--- NOTE | 2023-11-07 17:17 | NUR.NOTE ---
Nursing Note: spoke with this RN about how to move her to a larger facility. This RN spoke with CM. CM suggest family to call patients small animal caretaker through [facility] if she is unhappy with his [facility]. verbalized her understanding.
== END 2023-11-07 17:15 | disposition home or self-care (01) ==
PROVIDERS: Emergency Provider Student in an Organized Health Care Education/Training Program; PCP Family Medicine
DX: R22.41 Localized swelling, mass and lump, right lower limb (principal); I10 Essential (primary) hypertension; I25.10 Atherosclerotic heart disease of native coronary artery without angina pectoris; E78.5 Hyperlipidemia, unspecified; F03.90 Unspecified dementia, unspecified severity, without behavioral disturbance, psychotic disturbance, mood disturbance, and anxiety
CPT/HCPCS: 71275; 80053; 96372; 99285; 83880; 85025; 85379; 85610; 85730; 99284; J1650; J3490

== ENCOUNTER → 2023-11-08 10:49 | Outpatient (CLI) | payer MEDICARE, SELFPAY ==
--- NOTE | 2023-11-08 | DI.US_ITS ---
Exam(s) US LOWER EXTREMITY VENOUS RT EXAM: US LOWER EXTREMITY VENOUS RT CLINICAL HISTORY: RLE WARMTH, SWELLING,+DIMER. TECHNIQUE: Lower extremity venous ultrasound performed using grayscale, color-flow, and spectral Do ppler analysis. COMPARISON: No exams were available for comparison FINDINGS: The common femoral, femoral and popliteal veins demonstrate normal compressibility, augmentation, and color Doppler. The posterior tibial veins are patent. No saphenous vein thrombosis or other superfi cial venous thrombosis is seen. There is a Griffin's cyst measuring 4.4 x 1.6 by 3.2 cm. IMPRESSION: Griffin's cyst. No evidence of DVT. DATA REPOSITORY:
== END ==
PROVIDERS: PCP Family Medicine; Visit Provider Student in an Organized Health Care Education/Training Program
DX: M79.604 Pain in right leg (principal)
CPT/HCPCS: 93971

== ENCOUNTER 2023-11-08 12:55 | Emergency (ER) | payer MEDICARE, SELFPAY ==
[2023-11-08] VITALS (37 sets, daily range): BP systolic 126–167; BP diastolic 79–90; PULSE 85–110; RESP 14–26; TEMP 36.4–36.7; O2SAT 90–98
--- NOTE | 2023-11-08 13:17 | ED.GENADUL_ITS ---
Discharge Plan Discharge Details Chief Complaint: GenMedical Primary Care Provider: Missy Moon ED Provider: Gage Simpson Home Meds and New Rx's Prescriptions: No Action quetiapine [Seroquel] 100 mg tablet 100 - 200 mg PO BID Qty: 90 0RF Rx Instructions: give 1 tab am and 2 tabs at HS palliative care patient divalproex [Depakote] 250 mg tablet,delayed release (DR/EC) 250 mg PO TID Qty: 90 0RF pramipexole 0.25 mg tablet 0.25 mg PO DAILY Qty: 30 0RF aspirin [Adult Low Dose Aspirin] 81 mg tablet,delayed release (DR/EC) 81 mg PO DAILY Hold Instructions: Resume on 11/09/23. Do not take until after your ultrasound and after talking to your primary care doctor metformin 500 mg tablet 500 mg PO BID melatonin 5 mg capsule 5 mg PO QHS lorazepam 0.5 mg tablet 0.5 mg PO BID trazodone 50 mg tablet 50 mg PO DAILY Patient Comments: TAKE ONE TABLET BY MOUTH AT BEDTIME HPI General Date/Time Provider Initiated Documentation: 11/08/23 13:00 . HPI Narrative: 78 year-old male presents to ED today by POV/ambulating with his creative resource manager, with a chief complaint of swelling in his legs, R leg unilateral swelling- seen for outpatient US DVT study just prior to visit which was negative- as well as speech and balance issues for a couple weeks- speech noticeably worse for the past couple days. Quality described as speech difficulty, denies pain anywhere, no radiation to shortness of breath, cough, fever, abdominal pain, numbness, facial droop. Severity is described as unable to quantify. Palliating factors include nothing specific attempted. Provoking factors include nothing specific. Events leading up to the incident/Associated Symptoms: Patients creative resource manager states his mentation was completely normal around the end of June, but has had question of diagnoses of frontal lobe dementia- patient had been taken off psych meds and placed in hospice care, but is no longer a hospice patient. Patient not anticoagulated. Related Data Home Medications Medication Instructions Recorded Confirmed pramipexole 0.25 mg tablet 0.25 mg PO DAILY #30 tabs 07/24/23 11/08/23 lorazepam 0.5 mg tablet 0.5 mg PO BID 10/01/23 11/08/23 aspirin 81 mg tablet,delayed 81 mg PO DAILY 10/04/23 11/08/23 release (Adult Low Dose Aspirin) melatonin 5 mg capsule 5 mg PO QHS 10/04/23 11/08/23 metformin 500 mg tablet 500 mg PO BID 10/04/23 11/08/23 divalproex 250 mg tablet,delayed 250 mg PO TID #90 tabs 10/29/23 11/08/23 release (Depakote) quetiapine 100 mg tablet (Seroquel) 100 - 200 mg (1 - 2 x 100 mg) PO 10/29/23 11/08/23 BID #90 tabs trazodone 50 mg tablet 50 mg PO DAILY 11/07/23 11/08/23 Previous Rx's Medication Instructions Recorded pramipexole 0.25 mg tablet 0.25 mg PO DAILY #30 tabs 07/24/23 divalproex 250 mg tablet,delayed 250 mg PO TID #90 tabs 10/29/23 release (Depakote) quetiapine 100 mg tablet (Seroquel) 100 - 200 mg (1 - 2 x 100 mg) PO 10/29/23 BID #90 tabs Allergies Allergy/AdvReac Type Severity Reaction Status Date / Time No Known Allergies Allergy Unverified 11/08/23 13:05 General Stated Complaint: GenMedical JOANA: 3 Review of Systems All systems reviewed & are unremarkable except as noted in HPI and below Exam Narrative Exam Narrative: GENERAL APPEARANCE: Well-nourished, non-toxic, awake and alert, atraumatic, no acute distress. SKIN: Warm, pink, dry, intact, without rashes/lesions/ulcerations. HEAD: Normocephalic, atraumatic, normal hair distribution for gender/age. EYES: Pupils PERRLA, EOMs intact without nystagmus, normal conjunctiva, no exudates on lids/lashes. ENT: Nares patent, no circumoral cyanosis, no facial swelling NECK: Supple, trachea midline, painless cervical ROM. LUNGS/CHEST: Lungs CTA bilaterally- no rhonchi/rales/wheezes diffusely, non- labored respirations, normal A/P diameter, symmetrical expansion, no chest wall deformity HEART (CV/PV): Regular rate and rhythm without murmur, no peripheral edema, no JVD. ABDOMEN: Soft, non-distended, no guarding, no tenderness, small bruise at LLQ, no pulsatile masses or organomegaly. MSK: Normal ROM, no swelling/deformity to bilateral UEs or LEs, moving all extremities without weakness, no cyanosis, spine midline without tenderness, normal curvature. NEURO: Mental Status AAOx4 - alert to person, place, time, events No facial droop, no forehead involvement. Motor: No focal weakness - strength 5/5 in bilateral UEs and LEs, proximal and distal, symmetric. Sensory: sensation intact to light touch globally. Gait NT PSYCH: euthymic, cooperative, pleasant, garbled / slurred speech Course Vital Signs Vital signs: Vital Signs Temperature 36.7 C 11/08/23 12:58 Pulse 110 H 11/08/23 12:58 Respiratory Rate 16 11/08/23 12:58 Blood Pressure 126/79 11/08/23 12:58 Pulse Oximetry 97 11/08/23 12:58 Temperature 36.7 C 11/08/23 13:05 Temperature Source Temporal Artery Scan 11/08/23 13:05 Pulse 110 H 11/08/23 13:05 Respiratory Rate 16 11/08/23 13:05 Respiratory Effort Normal 11/08/23 13:04 Blood Pressure 126/79 11/08/23 13:05 Blood Pressure Position Sitting 11/08/23 13:05 Pulse Oximetry 97 11/08/23 13:05 Oxygen Delivery Method Room Air 11/08/23 13:05 Oxygen Flow Rate 0 11/08/23 13:05 Pain Level 0 11/08/23 13:05 Medical Decision Making This dictation utilizes [id number] dictation software and may contain unedited grammatical errors. 78 y/o M presents to ED today with a chief complaint of slurred speech, declining mental status for 2 weeks to 2 days onset- unclear with story. Had an admission where he was placed on hospice care, but seemed to resolve when he was taken off his psychiatric medicines by PCP per creative resource manager. He was seen here yesterday and PE was ruled out, and outpatient US DVT R LE study was negative as an outpatient today. Patient has some increasing edema along with his speech changes. Patients' medical history: Memory loss, mental and behavioral problems, hyperglycemia, hypertension, rupture of left Achilles tendon, frontotemporal dementia. Family and social history: lives with creative resource manager at home, no sick contacts, no ETOH/illicit substances. Pertinent exam findings / vital signs include [ ]. Differential / pathologies of concern include CVA, TIA, CHF, Behavioral Issue, Encephalopathy, Anasarca. Diagnostic studies of: -CBC, CMP, lactate, procalcitonin, ammonia, CRP/ESR, troponin, BNP, urinalysis, creatine kinase, lipase, magnesium, EKG, CT a of the head and neck, x-ray chest. -CBC shows no leukocytosis, chronic anemia -lactate 1.6 -ammonia elevated at 35 ED Course/Assessment/Plan: 78-year-old male presents with alteration from baseline in the setting of chronic mental and behavioral health history and frontotemporal dementia, it is unclear but at some point in the past 2 to 14 days he has become significantly more altered from his baseline with some slurred speech, he was seen recently for right lower extremity swelling and had a negative outpatient ultrasound this morning as well as a negative PE study yesterday at ER visit. He is alert and oriented but his speech is difficult to understand, he has a complex history but I do not feel that he is having a CVA nor is he within the window, he is possibly encephalopathic and he was signed out to Lady Berger PA-C with CTA of the head and neck pending as well as urinalysis. Disposition of Altered Mental Status. Patient verbalized understanding of the plan and return to ED criteria and engaged in shared decision making. Medical Records Medical records reviewed: Yes I reviewed the patient's medical records. Lab Data Lab results reviewed: Yes I reviewed the patient's lab results. Labs: Laboratory Tests Range/Units 11/08/23 14:00 WBC (4.4-10.8) 10^3/uL 5.04 RBC (4.36-5.78) 10^6/uL 3.64 L Hgb (13.5-17.5) g/dL 11.3 L Hct (40.0-50.0) % 34.9 L MCV (80-95) fL 96 H MCH (27.0-33.0) pg 31.0 MCHC (32.0-36.0) % 32.4 RDW (11.8-14.1) % 13.9 Plt Count (130-400) 10^3/uL 142 MPV (8.0-11.0) fL 8.9 Immature Gran % 1.2 Neutrophils % 55.2 Lymphocytes % 20.8 Monocytes % 20.0 Eosinophils % 2.2 Basophils % 0.6 Nucleated RBC % (0.0-0.3) % 0.0 Absolute Neutrophils (1.2-6.7) 10^3/uL 2.78 Absolute Lymphocytes (1.2-3.4) 10^3/uL 1.05 L Absolute Monocytes (0.1-0.8) 10^3/uL 1.01 H Absolute Eosinophils (0.0-0.7) 10^3/uL 0.11 Absolute Basophils (0.0-0.2) 10^3/uL 0.03 ESR (0-20) mm/hr 11 VBG Lactate (0.6-1.4) mmol/L 1.6 H Sodium (136-145) mmol/L 141 Potassium (3.5-5.1) mmol/L 3.6 Chloride (98-107) mmol/L 106 Carbon Dioxide (21.0-32.0) mmol/L 27.2 Anion Gap (3-11) mmol/L 7.8 BUN (7-18) mg/dL 19 H Creatinine (0.70-1.30) mg/dL 1.1 Est GFR (CKD-EPI 2020) (mL/min/1.73m2) 68.71 Glucose (74-106) mg/dL 116 H Calcium (8.5-10.1) mg/dL 8.4 L Magnesium (1.8-2.4) mg/dL 1.7 L Total Bilirubin (0.2-1.0) mg/dL 0.9 AST (15-37) U/L 27 ALT (16-63) U/L 34 Alkaline Phosphatase (46-116) U/L 70 Ammonia (11-32) umol/L 35 H Creatine Kinase (39-308) U/L 102 Troponin I (< or =60) ng/L < 50 C-Reactive Protein (<or=0.5) mg/dL 10.94 H NT-Pro-B Natriuret Pep (<300) pg/mL 718 H Total Protein (6.4-8.2) g/dL 5.9 L Albumin (3.4-5.0) g/dL 2.8 L Lipase (16-77) U/L 42 Procalcitonin ng/mL 0.1 Quality:SDOH Health Related Social Needs: Health related social needs personal safety PFSH All Active Problems (Updated 11/07/23 @ 16:37 by Kiki Morales MD) DVT (deep venous thrombosis) (Chronic) Right rotator cuff tear (Acute) Rupture of left Achilles tendon (Acute) Contusion of right shoulder (Acute) Injury of shoulder (Acute) Achilles tendon injury (Acute) Palliative care patient (Acute) Bipolar disorder (Acute) KERVIN (acute kidney injury) (Acute) 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) of both ears (Acute) Acute pericarditis (Acute ~1968) Medical History Abnormal EKG Acute hyponatremia Altered mental status Atherosclerotic heart disease of [place] coronary artery without angina pectoris Essential hypertension Family history of prostate cancer Generalized anxiety disorder Hearing loss Heart disease History of behavioral and mental health problems Hyperglycemia Hypertension Hypomania Hypothyroidism Impaired fasting glucose Insomnia Intertrigo Left arm pain Left bundle-branch block Memory loss Mental and behavioral problem Mixed hyperlipidemia Recurrent major depressive disorder Right-sided chest pain RLS (restless legs syndrome) Urge incontinence Ventricular ectopy Surgical History Appendectomy Arthroplasty of knee right Stent placement 09/10/16-[facility] Vasectomy Family History Mother Diabetes Essential hypertension Father Diabetes Neoplasm PROSTATE Sister Diabetes Neoplasm MULTI-MYELOMA Sister Diabetes Essential hypertension Sister No problems noted. Brother Heart disease Grandfather Neoplasm STOMACH Grandfather Ruptured appendix Grandmother No problems noted. Grandmother No problems noted. Daughter No problems noted. Daughter No problems noted. Social History Smoking/Tobacco Use Status: Never Smoking risk assessment performed?: Yes Alcohol Intake: former Drug use: Current Sobriety Substance use type: does not use Housing: other Do you feel safe in your relationship?: Yes Additional Social history: Live with care provider named Skyla Deutsch in [place]. HUGO RN 11/07/23 Sign Out Sign Out Data: Sign Out Comment: Altered from baseline in chronic frontotemporal dementia, possible encephalopathy, CTA Head & neck pending. Likely admit. Last updated by Gage Simpson PA at 11/08/23 15:51
--- NOTE | 2023-11-08 14:00 | RT.EKG_ITS ---
APPROVED REPORT Exam: Resting ECG Reason for Exam: tachycardia Patient Location: E HR:93 bpm ECG Measurements Heart Rate 93 AXIS SC 169 P 54 QRSd 156 QRS -52 QT 408 T 104 QTc 508 Conclusion Sinus rhythm...normal P axis, V-rate 60- 99 Left bundle branch block...QRSd>120, broad/notched R ST elevation secondary to IVCD...Multiple VCG criteria sinus rhythm, LBBB unchanged from prior
[2023-11-08 14:20] LABS: Lactate 1.6 mmol/L (0.6-1.4)
[2023-11-08 14:25] LABS: Abs Immature Grans 0.06 10^3/uL (0.0-0.06); Absolute Basophil Count 0.03 10^3/uL (0.0-0.2); Absolute Eosinophil Count 0.11 10^3/uL (0.0-0.7); Absolute Lymphocyte Count 1.05 10^3/uL (1.2-3.4); Absolute Monocyte Count 1.01 10^3/uL (0.1-0.8); Absolute Neutrophil Count 2.78 10^3/uL (1.2-6.7); Basophils % 0.6; Eosinophils % 2.2; HCT 34.9 % (40.0-50.0); HGB 11.3 g/dL (13.5-17.5); Immature Grans % 1.2; Lymphocytes % 20.8; MCHC 32.4 % (32.0-36.0); MCV 96 fL (80-95); MPV 8.9 fL (8.0-11.0); Neutrophils % 55.2; Platelet Count 142 10^3/uL (130-400); RBC 3.64 10^6/uL (4.36-5.78); RDW 13.9 % (11.8-14.1); RDW-SD 49.6 fL; WBC 5.04 10^3/uL (4.4-10.8)
[2023-11-08 14:29] LABS: ESR 11 mm/hr (0-20)
[2023-11-08 14:36] LABS: Ammonia 35 umol/L (11-32)
[2023-11-08 14:56] LABS: ALT 34 U/L (16-63); AST 27 U/L (15-37); Albumin 2.8 g/dL (3.4-5.0); Alkaline Phosphatase 70 U/L (46-116); Anion Gap 7.8 mmol/L (3-11); BUN 19 mg/dL (7-18); Bilirubin, Total 0.9 mg/dL (0.2-1.0); C-Reactive Protein 10.94 mg/dL (<or=0.5); CO2 27.2 mmol/L (21.0-32.0); CREATININE 1.1 mg/dL (0.70-1.30); Calcium 8.4 mg/dL (8.5-10.1); Chloride 106 mmol/L (98-107); Creatine Kinase 102 U/L (39-308); Estimated GFR 68.71 (mL/min/1.73m2); Glucose 116 mg/dL (74-106); Lipase 42 U/L (16-77); Magnesium 1.7 mg/dL (1.8-2.4); NT-proBNP 718 pg/mL (<300); Potassium 3.6 mmol/L (3.5-5.1); Sodium 141 mmol/L (136-145); Total Protein 5.9 g/dL (6.4-8.2); Troponin I < 50 ng/L (< or =60)
[2023-11-08 15:05] LABS: Procalcitonin 0.1 ng/mL
[2023-11-08] MEDS: Normal Saline - Diluent 50 ML VIAL IJ (15:36)
[2023-11-08] MEDS: Omnipaque 350 MG/ML 100 ML BTL IJ (15:37)
--- NOTE | 2023-11-08 15:55 | DI.CT_ITS ---
Exam(s) CT BRAIN NECK CTA EXAM: CT BRAIN NECK CTA CLINICAL HISTORY: slurred speech, onset 2 days ago. TECHNIQUE: Imaging Protocol: Axial CT angiography was performed with multi-slice acquisition and mu lti-planar and MIP reconstructions. CONTRAST MATERIAL: Intravenous: Omnipaque 350 Contrast volume:100 ml COMPARISON: CT CT HEAD CERVICAL SPINE WO from 07/11/2023 FINDINGS: CT Head W/O and W contrast: Ventricles and Extra axial spaces: Normal in size and morphology for the patient's age. Hemorrhage: None. Cerebral parenchyma: No evidence of acute infarct or mass. Mild atrophy. Moderate white matter chauhan ges of small vessel disease. Midline shift: None. Brainstem/Cerebellum: No acute findings.. Calvarium: Normal. Visualized Paranasal sinuses/Mastoids: Clear. Soft Tissues: Unremarkable. Enhancement: Normal. CTA Brain W: Internal Carotid Arteries: Petrous: Normal. Cavernous: Normal. Cerebral: Normal. Middle Cerebral Arteries: Right: No aneurysm, occlusion or significant stenosis. Left: No aneurysm, occlusion or significant stenosis. Anterior Cerebral Arteries: Right: No aneurysm, occlusion or significant stenosis. Left: No aneurysm, occlusion or significant stenosis. Posterior cerebral Arteries: Right: No aneurysm, occlusion or significant stenosis. Left: No aneurysm, occlusion or significant stenosis. Vertebral Arteries: Right: No aneurysm, occlusion or significant stenosis. Left: No aneurysm, occlusion or significant stenosis. Basilar Artery: No aneurysm, occlusion or significant stenosis. CTA Neck W: Common Carotid: Right: Mild plaque at the bulb. No dissection, occlusion or significant stenosis. Left: No dissection, occlusion or significant stenosis. External Carotid: Right: No dissection, occlusion or significant stenosis. Left: No dissection, occlusion or significant stenosis. Internal Carotid: Right: No dissection, occlusion or significant stenosis. Left: Calcified plaque proximally. Less than 50 percent stenosis. No dissection, occlusion or signi ficant stenosis. Vertebral Artery: Right: No dissection, occlusion or significant stenosis. Left: No dissection, occlusion or significant stenosis. Lung Apices: Limited evaluation due to motion. Right upper lobe infiltrate again noted. Bones: No acute abnormality. Degenerative changes in the cervical spine. Soft Tissues: Normal. IMPRESSION: 1. CTA brain: Normal CTA examination of the [place]. 2. Head CT: No acute abnormality. 3. CTA neck: Calcified plaque at the left proximal internal carotid artery causing less than 50 perce nt stenosis. Mild plaque at the right common carotid bulb. RADIATION DOSE DELIVERED: Total DLP DATA REPOSITORY: All CT scans at this facility are submitted to the National Radiology Data Registry (NRDR) Dose Index Registry (DIR) with the [employer] (ACR). RADIATION OPTIMIZATION: All CT scans at this facility use at least one of these dose optimization te chniques: automated exposure control; mA and/or kV adjustment per patient size (includes targeted exa ms where dose is matched to clinical indication); or iterative reconstruction.
--- NOTE | 2023-11-08 16:11 | DI.RAD_ITS ---
Exam(s) XR CHEST 2V PA LATERAL EXAM: XR CHEST 2V PA LATERAL CLINICAL HISTORY: edema TECHNIQUE: 2D digital imaging was performed. Two views. COMPARISON: CT CT CHEST PE CTA from 11/07/2023 FINDINGS: Lateral views limited due to poor pulmonary inflation. Overlying monitoring leads. HEART: Mildly enlarged. Coronary artery stent. Aorta: Not dilated. PULMONARY VASCULATURE: Normal. LUNGS: Right upper lobe infiltrate faintly seen. Scarring in the lingula. PLEURAL SPACE: Small bilateral pleural effusions. BONE:Unremarkable for age. Soft tissues: Unremarkable. IMPRESSION: Small bilateral pleural effusions. No evidence of acute pulmonary edema. Right upper lobe infiltrat e. DATA REPOSITORY: RADIATION DOSE DELIVERED:
[2023-11-08 17:49] LABS: Bilirubin Negative (Negative); Blood Trace-intact (Negative); Clarity Sl Cloudy (Clear); Glucose Negative (Negative); Ketones Negative (Negative); Leukocyte Esterase Trace (Negative); Nitrite Negative (Negative); Specific Gravity 1.015 (1.005-1.025)
[2023-11-08 17:57] LABS: Bacteria Moderate HPF (Negative); C & S Indicated? Yes; Casts Negative LPF (Negative); Crystals Negative HPF (Negative); Epithelial Cells Rare HPF (Negative); Mucus Negative (Negative); RBC 0-2 HPF (0-2)
[2023-11-08] MEDS: Doxycycline Hyclate 100 MG CAP PO (18:08)
== END 2023-11-08 18:46 | disposition home or self-care (01) ==
PROVIDERS: Physician Assistant; Emergency Provider Physician Assistant; PCP Family Medicine
DX: R22.43 Localized swelling, mass and lump, lower limb, bilateral (principal); I10 Essential (primary) hypertension; I25.10 Atherosclerotic heart disease of native coronary artery without angina pectoris; E78.5 Hyperlipidemia, unspecified; I44.7 Left bundle-branch block, unspecified; Z95.5 Presence of coronary angioplasty implant and graft; Z79.82 Long term (current) use of aspirin; Z79.4 Long term (current) use of insulin
CPT/HCPCS: 36415; 70496; 70498; 80053; 82550; 83690; 84145; 85652; 87077; 93005; 99285; 71046; 81003; 81015; 82140; 83605; 83735; 83880; 84484; 85025; 86140; 87086; 87186; 93010; 93971; 99284; J3490

== ENCOUNTER 2023-11-09 14:08 | Outpatient (REF) | payer MEDICARE, SELFPAY ==
[2023-11-09 15:46] LABS: NT-proBNP 484 pg/mL (<300)
== END 2023-11-09 14:09 | disposition home or self-care (01) ==
LOC: LBN 14:08
PROVIDERS: PCP Family Medicine; Visit Provider Family Medicine
DX: R00.0 Tachycardia, unspecified (principal); R60.0 Localized edema
CPT/HCPCS: 83880

== ENCOUNTER → 2023-11-16 10:26 | Outpatient (BNVA) | payer MEDICARE, SELFPAY | PROVIDERS: PCP Family Medicine; Referring Provider Family Medicine; Visit Provider Student in an Organized Health Care Education/Training Program | DX: S86.012D Strain of left Achilles tendon, subsequent encounter (principal); X58.XXXD Exposure to other specified factors, subsequent encounter; M75.101 Unspecified rotator cuff tear or rupture of right shoulder, not specified as traumatic | CPT/HCPCS: 99213 ==

== ENCOUNTER → 2023-11-23 14:55 | Outpatient (BNVA) | payer MEDICARE, SELFPAY | PROVIDERS: PCP Family Medicine; Referring Provider Family Medicine; Visit Provider Nurse Practitioner Adult Health | DX: G31.09 Other frontotemporal neurocognitive disorder (principal); F02.80 Dementia in other diseases classified elsewhere, unspecified severity, without behavioral disturbance, psychotic disturbance, mood disturbance, and anxiety; F31.9 Bipolar disorder, unspecified; R29.818 Other symptoms and signs involving the nervous system | CPT/HCPCS: 99215; G2212 ==

== ENCOUNTER 2023-12-18 08:18 | Emergency (ER) | payer MEDICARE, SELFPAY ==
[2023-12-18 08:22] VITALS: BP 118/85; PULSE 100; RESP 20; TEMP 36.6; O2SAT 99
--- NOTE | 2023-12-18 08:30 | DI.CT_ITS ---
Exam(s) CT HEAD WO EXAM: CT HEAD WO CLINICAL HISTORY: fall. TECHNIQUE: Imaging Protocol: Axial computed tomography images with coronal and sagittal reformatted images were created and reviewed COMPARISON: CT CT BRAIN NECK CTA from 11/08/2023 FINDINGS: There are no skull fractures. There is no fluid in the visualized paranasal sinuses. There is no evidence of intracranial hemorrhage, mass effect, or shift of midline structures. There are no extra-axial fluid collections. The ventricles are not enlarged or shifted and there is no blo od within the ventricular system nor within the basal cisterns. Again noted is abundant bilateral periventricular hypodensity consistent with chronic small vessel di sease. There are also bilateral lacunar infarcts again noted in the external capsules. No new amarilis torial infarct. IMPRESSION: No acute intracranial findings on this noninfused CT scan of the brain. Chronic small-vessel white matter ischemic changes. If clinically indicated follow-up MRI with diffusion imaging can be performed for added sensitivity a nd specificity. RADIATION DOSE DELIVERED: 767.89mGy.cm Total DLP DATA REPOSITORY: All CT scans at this facility are submitted to the National Radiology Data Registry (NRDR) Dose Index Registry (DIR) with the [employer] (ACR). RADIATION OPTIMIZATION: All CT scans at this facility use at least one of these dose optimization te chniques: automated exposure control; mA and/or kV adjustment per patient size (includes targeted exa ms where dose is matched to clinical indication); or iterative reconstruction.
--- NOTE | 2023-12-18 08:30 | DI.CT_ITS ---
Exam(s) CT CHEST WO EXAM: CT CHEST WO CLINICAL HISTORY: rib pain. TECHNIQUE: Multi planar reconstructions were performed. CONTRAST MATERIAL: None COMPARISON: CT CT CHEST PE CTA from 11/07/2023 FINDINGS: CHEST: LUNGS: There are no lung contusions. Tiny bilateral pleural effusions are noted and atelectasis in b oth lower lobe basal segments.. No pneumothorax. No ominous pulmonary lesions but MEDIASTINUM: No evidence of sternal fracture or mediastinal hematoma. No hilar nor mediastinal adeno josesito. No obvious axillary adenopathy CARDIAC: Heart size is normal. There is no pericardial effusion.Coronary artery calcifications noted . The diameter of the ascending thoracic aorta is enlarged, measuring 4.1 cm. Diameter of the mid a ortic arch is 2.7 cm. Diameter of the proximal descending thoracic aorta is 2.8 cm. VISUALIZED UPPER ABDOMEN: No adrenal masses. No ascites. OSSEOUS: There are adjacent nondisplaced subacute appearing fractures of the anterior left 8th and 9t h ribs. No vertebral fractures. No osseous lesions.. IMPRESSION: 1. There are subacute appearing fractures of the anterior aspect of the left 8th 9th ribs. 2. No lung contusion or pneumothorax. Small bilateral pleural effusions. 3. Other findings as above. RADIATION DOSE DELIVERED: 500.55mGy.cm Total DLP DATA REPOSITORY: All CT scans at this facility are submitted to the National Radiology Data Registry (NRDR) Dose Index Registry (DIR) with the [employer] (ACR). RADIATION OPTIMIZATION: All CT scans at this facility use at least one of these dose optimization te chniques: automated exposure control; mA and/or kV adjustment per patient size (includes targeted exa ms where dose is matched to clinical indication); or iterative reconstruction.
[2023-12-18] MEDS: Acetaminophen 500 MG TAB 1000 MG PO (08:47)
--- NOTE | 2023-12-18 09:15 | DI.VRAD_ITS ---
PROCEDURE INFORMATION: Exam: CT Head Without Contrast Exam date and time: 12/18/2023 8:55 AM Age: 78 years old Clinical indication: Injury or trauma; Fall; Blunt trauma (contusions or hematomas) TECHNIQUE: Imaging protocol: Computed tomography of the head without contrast. COMPARISON: CT BRAIN NECK CTA 11/08/2023 3:37 PM FINDINGS: Brain: There are bilateral periventricular white matter and centrum semiovale hypodensities consistent chronic ischemic small vessel disease. No recent infarct, intracranial bleed or intracranial mass. Cerebral ventricles: No ventriculomegaly. Pituitary gland and sella: Partially empty sella. Paranasal sinuses: There are frothy secretions in the right maxillary sinus, right sphenoid sinus and right posterior ethmoid air cells. Mastoid air cells: Visualized mastoid air cells are well aerated. Bones/joints: Unremarkable. No acute fracture. Soft tissues: Unremarkable. IMPRESSION: No intracranial posttraumatic changes. Dictated and Authenticated by: Andre Ghosh MD. Ordering:PAOLA Rosado MD
--- NOTE | 2023-12-18 09:28 | DI.VRAD_ITS ---
PROCEDURE INFORMATION: Exam: CT Chest Without Contrast; Diagnostic Exam date and time: 12/18/2023 8:57 AM Age: 78 years old Clinical indication: Other: Rib pain TECHNIQUE: Imaging protocol: Diagnostic computed tomography of the chest without contrast. 3D rendering (Not supervised by radiologist): MIP and/or 3D reconstructed images were created by the technologist. COMPARISON: CT CHEST PE CTA 11/07/2023 3:37 PM FINDINGS: Lungs: Mild bilateral centrilobular emphysematous changes and minimal subsegmental atelectasis are present. Pleural spaces: Small pleural effusions with adjacent atelectasis. Heart: Normal heart size. No cardiomegaly. No pericardial effusion. Coronary arteries: There is coronary artery calcification. Lymph nodes: Unremarkable. No enlarged lymph nodes. Vasculature: Unremarkable. No aortic aneurysm. Bones/joints: Subacute or chronic healing nondisplaced fractures of the left anterior 8th and 9th ribs. These ribs were not imaged on prior chest CT of 11/07/2023 and were below the field view. Soft tissues: Unremarkable. IMPRESSION: Left 8th and 9th rib fractures of uncertain age, likely subacute or chronic. Lower ribs were not visible on 11/07/2023 for comparison. Small pleural effusions. Additional findings as described. Dictated and Authenticated by: Hazel Caldwell MD. Ordering:PAOLA Rosado MD
[2023-12-18] MEDS: Lidocaine 5% Patch 1 PATCH TP (09:56)
[2023-12-18 09:57] VITALS: BP 136/80; PULSE 98; RESP 18; O2SAT 98
--- NOTE | 2023-12-18 12:09 | W.ED.GENAD ---
Discharge Plan Disposition Patient Disposition: Home Condition: Stable Discharge Details Clinical Impression: Closed rib fracture, Frontotemporal dementia, Rib pain on left side Primary Care Provider: Kevin Rosales ED Provider: Shantal Taylor Home Meds and New Rx's Prescriptions: New lidocaine 5 % adhesive patch,medicated 1 patch topical DAILY Qty: 15 0RF Rx Instructions: leave on most painful area for up to 12 hrs No Action lorazepam 0.5 mg tablet 0.25 - 0.5 mg PO TID PRN PRN pramipexole 0.25 mg tablet 0.25 mg PO DAILY Qty: 30 0RF divalproex 250 mg tablet,delayed release (DR/EC) See Rx Instructions .ROUTE .COMPLEX Qty: 90 0RF Dose Instruction: TAKE ONE TABLET BY MOUTH THREE TIMES A DAY Rx Instructions: TAKE ONE TABLET BY MOUTH THREE TIMES A DAY quetiapine [Seroquel] 100 mg tablet 100 - 200 mg PO BID Qty: 90 0RF Rx Instructions: give 1 tab am and 2 tabs at HS palliative care patient metformin 500 mg tablet 500 mg PO BID melatonin 5 mg capsule 5 mg PO QHS atorvastatin 20 mg tablet Discharge Instructions Instructions: Rib Fracture (ED) Additional Instructions: you have fracture of 2 ribs on your left side apply topical pain patch as prescribed can take tylenol for pain try to use incentive spirometer for 10 deep breaths every hour to avoid getting pneumonia follow up with PCP Discharge Data Discharge Date/Time-TO BE ENTERED AT DEPARTURE: 12/18/23 09:57 HPI General Date/Time Provider Initiated Documentation: 12/18/23 08:39. Limitations to Documentation: altered mental status. Information obtained by: family (Caregiver). HPI Narrative: 78-year-old gentleman with past medical history of bipolar disorder, dementia presents for evaluation after fall. Patient is accompanied by his caregiver. The patient is not able to provide any additional information. The caregiver reports that yesterday, the patient had a fall. This may have been witnessed by his regular caregiver, but was definitely not witnessed by the caregiver present today. The patient falls frequently so this was not unusual and they did not feel that there is any need for evaluation at that time. However today the patient has been complaining of left sided back and side pain. Related Data Home Medications Medication Instructions Recorded Confirmed pramipexole 0.25 mg tablet 0.25 mg PO DAILY #30 tabs 07/24/23 12/18/23 melatonin 5 mg capsule 5 mg PO QHS 10/04/23 12/18/23 metformin 500 mg tablet 500 mg PO BID 10/04/23 12/18/23 divalproex 250 mg tablet,delayed See Rx Instructions .Route 11/25/23 12/18/23 release .COMPLEX #90 tabs lorazepam 0.5 mg tablet 0.25 - 0.5 mg PO TID PRN PRN 12/03/23 12/18/23 quetiapine 100 mg tablet (Seroquel) 100 - 200 mg (1 - 2 x 100 mg) PO 12/13/23 12/18/23 BID #90 tabs atorvastatin 20 mg tablet mg 12/18/23 lidocaine 5 % topical patch 1 patch topical DAILY #15 ea 12/18/23 Previous Rx's Medication Instructions Recorded pramipexole 0.25 mg tablet 0.25 mg PO DAILY #30 tabs 07/24/23 divalproex 250 mg tablet,delayed See Rx Instructions .Route 11/25/23 release .COMPLEX #90 tabs quetiapine 100 mg tablet (Seroquel) 100 - 200 mg (1 - 2 x 100 mg) PO 12/13/23 BID #90 tabs lidocaine 5 % topical patch 1 patch topical DAILY #15 ea 12/18/23 Allergies Allergy/AdvReac Type Severity Reaction Status Date / Time No Known Allergies Allergy Unverified 12/18/23 08:28 General Stated Complaint: Chest/Rib JOANA: 3 Exam Narrative Exam Narrative: Review of Systems: All systems reviewed & are unremarkable except as noted in HPI and below Well-developed, no acute distress NCAT PERRL, normal conjunctiva RRR, no murmur Chest wall tenderness on the posterior lateral aspect of the lower ribs, no bruising or deformity Unlabored respiratory effort, clear breath sounds bilaterally Nondistended abdomen Extremities w/o deformity, no cyanosis, no edema No rashes or lesions. no focal neurologic deficits Alert, cooperative, unable to answer questions. At neurologic baseline per caregiver Course Vital Signs Vital signs: Vital Signs Temperature 36.6 C 12/18/23 08:22 Pulse 100 H 12/18/23 08:22 Respiratory Rate 20 12/18/23 08:22 Blood Pressure 118/85 12/18/23 08:22 Pulse Oximetry 99 04/27/24 08:22 Temperature 36.6 C 12/18/23 08:22 Temperature Source Tympanic 12/18/23 08:22 Pulse 98 H 12/18/23 09:57 Respiratory Rate 18 12/18/23 09:57 Respiratory Effort Normal 12/18/23 08:26 Respiratory Depth Normal 12/18/23 08:26 Respiratory Pattern Normal 12/18/23 08:26 Blood Pressure 136/80 12/18/23 09:57 Blood Pressure Position Sitting 12/18/23 08:22 Pulse Oximetry 98 12/18/23 09:57 Oxygen Delivery Method Nasal Cannula 12/18/23 08:22 Pain Level 9 12/18/23 08:26 Medical Decision Making Emergent evaluation after a fall. Patient is not able to provide any history. He has significant dementia and a bone caregiver. There are no signs of acute trauma on my examination. They report that he falls frequently so this is not an unusual event for him. They are only concerned because he is complaining of some pain. He does not have any signs of head trauma but given his age a head CT was ordered and this is unremarkable for acute intracranial process. I have was suspicious for rib fracture given his tenderness on the posterior chest wall rib area. The CT scan does reveal fractures of ribs 8 and 9. No flail chest, no pulmonary contusion. Advised Tylenol and Lidoderm patch. As an incentive spirometer was provided to the patient to use every hour. Strict return precautions advised. Medical Records Medical records reviewed: Yes I reviewed the patient's medical records. Lab Data Lab results reviewed: Yes I reviewed the patient's lab results. Quality:SDOH Health Related Social Needs: Health related social needs personal safety PFSH All Active Problems Rib pain on left side (Acute) Closed rib fracture (Acute) Encounter for hospice care discussion (Acute) Parkinsonian features (Acute) Right rotator cuff tear (Acute) Rupture of left Achilles tendon (Acute) Palliative care patient (Acute) Bipolar disorder (Acute) KERVIN (acute kidney injury) (Acute) 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) of both ears (Acute) Acute pericarditis (Acute ~1968) Medical History Migraine History of tobacco use Heart disease Mental and behavioral problem Memory loss Urge incontinence Hyperglycemia Essential hypertension Generalized anxiety disorder Impaired fasting glucose Intertrigo Right-sided chest pain Altered mental status Left arm pain Ventricular ectopy Atherosclerotic heart disease of [place] coronary artery without angina pectoris Recurrent major depressive disorder RLS (restless legs syndrome) Hearing loss Insomnia Hypothyroidism Hypertension Mixed hyperlipidemia History of behavioral and mental health problems Abnormal EKG Left bundle-branch block Family history of prostate cancer Acute hyponatremia Hypomania Surgical History Status post vasectomy History of arthroscopy of knee History of appendectomy Vasectomy Stent [facility] 09/10/[facility] Arthroplasty of knee right Appendectomy Family History Mother Diabetes Essential hypertension Father Diabetes Neoplasm PROSTATE Sister Diabetes Neoplasm MULTI-MYELOMA Sister Diabetes Essential hypertension Sister No problems noted. Brother Heart disease Grandfather Neoplasm STOMACH Grandfather Ruptured appendix Grandmother No problems noted. Grandmother No problems noted. Daughter No problems noted. Daughter No problems noted. Social History Smoking/Tobacco Use Status: Never Smoking risk assessment performed?: Yes Alcohol Intake: former Drug use: Current Sobriety Substance use type: does not use Caregiver/Support person: Yes Household members: caregiver Housing: house Communication Needs: Hard of Hearing and Corrective Lenses Do you need help understanding health information?: Always Pets and animals: Yes Current gender identity: male What is your relationship status?: How often do you talk on the phone with friends or family?: twice per week How often do you get together with friends or relatives?: twice per week Panel score (0-1 are the most socially isolated patients): 1 What type of physical activity do you participate in: assisted ambulation Duration: < 15 minutes/day Agree to transfusion: No Working smoke detector in home: Yes Fire extinguisher in home: Yes Do you feel safe at home: Yes Do you feel safe in your relationship?: Yes Additional Social history: Live with care provider named Skyla Aden in [place]. but lives apart from his . Was on hospice but discharged due to improvement. Was hospitalized for many months in [facility] during 2022. Discharged from that facility last fall. Had a legal guardian in place in addition to his ; now just his . Is able to give brief short accurate history of recent events.
== END 2023-12-18 09:57 | disposition home or self-care (01) ==
PROVIDERS: Emergency Provider Emergency Medicine; PCP Nurse Practitioner Family
DX: S22.42XA Multiple fractures of ribs, left side, initial encounter for closed fracture (principal); G31.09 Other frontotemporal neurocognitive disorder; F02.80 Dementia in other diseases classified elsewhere, unspecified severity, without behavioral disturbance, psychotic disturbance, mood disturbance, and anxiety; I10 Essential (primary) hypertension; W18.39XA Other fall on same level, initial encounter; Y93.01 Activity, walking, marching and hiking; Y92.89 Other specified places as the place of occurrence of the external cause
CPT/HCPCS: 71250; 99284; 70450

== ENCOUNTER → 2024-01-18 10:21 | Outpatient (BNVA) | payer MEDICARE, SELFPAY | PROVIDERS: PCP Nurse Practitioner Family; Referring Provider Nurse Practitioner Family; Visit Provider Student in an Organized Health Care Education/Training Program | DX: S86.012A Strain of left Achilles tendon, initial encounter (principal); X58.XXXA Exposure to other specified factors, initial encounter | CPT/HCPCS: 99213 ==

== ENCOUNTER 2024-01-19 05:16 | Outpatient (CLI) | payer MEDICARE, SELFPAY ==
[2024-01-19 12:44] LABS: Hemoglobin A1C 5.9 % (<5.7)
[2024-01-19 13:00] LABS: Calculated LDL 57 mg/dL (<100); Cholesterol 136 mg/dL (<200); HDL Cholesterol 47 mg/dL (40-60); Triglyceride 160 mg/dL (<150)
[2024-01-19 13:39] LABS: FREE T4 0.86 ng/dL (0.76-1.46)
== END 2024-01-19 05:17 | disposition home or self-care (01) ==
LOC: LOS 05:16
PROVIDERS: PCP Nurse Practitioner Family; Visit Provider Nurse Practitioner Family
DX: E03.9 Hypothyroidism, unspecified (principal); R73.09 Other abnormal glucose; Z13.6 Encounter for screening for cardiovascular disorders
CPT/HCPCS: 36415; 80061; 83036; 84439; 84443

== ENCOUNTER → 2024-01-26 13:05 | Outpatient (BNVA) | payer MEDICARE, SELFPAY | PROVIDERS: PCP Nurse Practitioner Family; Referring Provider Family Medicine; Visit Provider Psychiatry & Neurology Neurology | DX: A86 Unspecified viral encephalitis (principal) | CPT/HCPCS: 99215; G2212 ==

== ENCOUNTER 2024-02-29 16:01 | Emergency (ER) | payer MEDICARE, SELFPAY ==
[2024-02-29] VITALS (11 sets, daily range): BP systolic 141; BP diastolic 89; PULSE 71–120; RESP 14–26; TEMP 36.8; O2SAT 95–98
--- NOTE | 2024-02-29 16:00 | RT.EKG_ITS ---
APPROVED REPORT Exam: Resting ECG Reason for Exam: Dizzy Patient Location: E HR:93 bpm ECG Measurements Heart Rate 93 AXIS MS 215 P 30 QRSd 158 QRS -44 QT 393 T 134 QTc 451 Conclusion Sinus rhythm...normal P axis, V-rate 60- 99Atrial premature complexes...SV complexes w/ short R-R in tvls Prolonged MS interval...MS >215, V-rate 91-120 Left bundle branch block...QRSd>120, broad/notched R Physician: LBBB, negative for sgarbossa
[2024-02-29] MEDS: Normal Saline 500 ML IV (16:45)
[2024-02-29 16:48] LABS: BE (Venous) 2 mmol/L (-2-3); HCO3 (Venous) 27 mmol/L (23-28); O2 Sat (Venous) 65 %; TCO2 (Venous) 24 mmol/L (24-29); pCO2 (Venous) 41 mmHg (41-51); pH (Venous) 7.42 (7.31-7.41); pO2 (Venous) 35 mmHg
[2024-02-29 16:49] LABS: Abs Immature Grans 0.06 10^3/uL (0.0-0.06); Absolute Basophil Count 0.03 10^3/uL (0.0-0.2); Absolute Eosinophil Count 0.16 10^3/uL (0.0-0.7); Absolute Monocyte Count 1.32 10^3/uL (0.1-0.8); Basophils % 0.4 %; Eosinophils % 2.1 %; HCT 38.1 % (40.0-50.0); HGB 12.9 g/dL (13.5-17.5); Immature Grans % 0.8 %; Lymphocytes % 25.1 %; MCH 29.7 pg (27.0-33.0); MCHC 33.9 % (32.0-36.0); MCV 88 fL (80-95); MPV 9.7 fL (8.0-11.0); Monocytes % 17.4 %; Neutrophils % 54.2 %; Platelet Count 217 10^3/uL (130-400); RBC 4.34 10^6/uL (4.36-5.78); RDW 12.2 % (11.8-14.1); RDW-SD 39.4 fL; WBC 7.57 10^3/uL (4.4-10.8)
[2024-02-29 17:03] LABS: Ammonia 25 umol/L (11-32)
[2024-02-29 17:10] LABS: Bilirubin Negative (Negative); Blood Negative (Negative); Clarity Clear (Clear); Glucose Negative (Negative); Ketones Trace mg/dL (Negative); Leukocyte Esterase Negative (Negative); Nitrite Negative (Negative); Specific Gravity 1.015 (1.005-1.025)
[2024-02-29 17:16] LABS: ALT 26 U/L (16-63); AST 23 U/L (15-37); Albumin 3.3 g/dL (3.4-5.0); Alkaline Phosphatase 117 U/L (46-116); Anion Gap 8.4 mmol/L (3-11); BUN 12 mg/dL (7-18); Bilirubin, Total 0.43 mg/dL (0.2-1.0); CO2 27.6 mmol/L (21.0-32.0); Calcium 8.8 mg/dL (8.5-10.1); Chloride 95 mmol/L (98-107); Estimated GFR 77.04 (mL/min/1.73m2); Glucose 109 mg/dL (74-106); Potassium 4.3 mmol/L (3.5-5.1); Sodium 131 mmol/L (136-145); TSH (W/Ref FT4) 6.28 uIU/mL (0.36-3.74); Total Protein 6.9 g/dL (6.4-8.2); Troponin I < 50 ng/L (< or =60)
[2024-02-29 17:30] LABS: ETHANOL BLOOD < 3.0 mg/dL (<10)
[2024-02-29 17:33] LABS: VALPROIC ACID 73.6 ug/mL
[2024-02-29 17:48] LABS: FREE T4 0.88 ng/dL (0.76-1.46)
--- NOTE | 2024-02-29 19:09 | ED.GENADUL_ITS ---
Discharge Plan Disposition Patient Disposition: Home Condition: Good Discharge Details Clinical Impression: Confusion Primary Care Provider: Kevin Rosales ED Provider: Gage Chen Home Meds and New Rx's Prescriptions: No Action lorazepam 0.5 mg tablet 0.25 - 0.5 mg PO TID PRN PRN quetiapine [Seroquel] 100 mg tablet 100 - 200 mg PO BID Rx Instructions: give 1 tab am and 2 tabs at HS palliative care patient lorazepam 0.5 mg tablet See Rx Instructions PO BID PRN (Reason: anxiety) Qty: 60 0RF Rx Instructions: orally twice a day PRN; Give one tablet at HS and one additional tablet per day as needed. Palliative care patient. pramipexole 0.25 mg tablet 0.25 mg PO DAILY Qty: 30 0RF divalproex 250 mg tablet,delayed release (DR/EC) See Rx Instructions .ROUTE .COMPLEX Qty: 90 0RF Dose Instruction: TAKE ONE TABLET BY MOUTH THREE TIMES A DAY Rx Instructions: TAKE ONE TABLET BY MOUTH THREE TIMES A DAY metformin 500 mg tablet 500 mg PO BID melatonin 5 mg capsule 5 mg PO QHS atorvastatin 20 mg tablet 20 mg PO DAILY Discharge Instructions Instructions: Delirium (confusion) Additional Instructions: At this time the majority of your workup has returned normal, however there is still concern that there could be a cranial problem going on. After our discussion, please go directly to [facility] emergency department where you will be seen by one of my fellow physician colleagues. They will assess you and likely get a CT scan of the brain to make sure there is no bleed or other abnormality. We will send your results and notes to them for review. Referrals: Kevin Rosales, CLIENT INTEGRATION MANAGER [Primary Care Provider] - Discharge Data Discharge Date/Time-TO BE ENTERED AT DEPARTURE: 02/29/24 19:28 HPI General Date/Time Provider Initiated Documentation: 02/29/24 16:07 . HPI Narrative: This is a 78-year-old male with a past medical history of coronary artery disease, hypertension, hypothyroidism, high cholesterol, diabetes, not on any blood thinners restless leg syndrome, who presents today for evaluation of confusion and weakness. Patient states that over the last week or so he has been up slightly more confused and weak compared to normal. He states that he has been sleeping often. Family member who is at bedside states that this has been notably pronounced, and when he went to physical therapy today it was significant enough that the physical therapist recommended he come to the ER for further evaluation. Patient does recommend falling and hitting his head about 6 to 7 days ago. He struck the right side of his head, but denies any loss of consciousness. He is not on any blood thinners. He denies any other complaints. He denies any vomiting, diarrhea, current headache, vision changes, numbness, tingling, or focal weakness. No other modifying factors at this time. Related Data Home Medications Medication Instructions Recorded Confirmed pramipexole 0.25 mg tablet 0.25 mg PO DAILY #30 tabs 07/24/23 03/01/24 melatonin 5 mg capsule 5 mg PO QHS 10/04/23 03/01/24 metformin 500 mg tablet 500 mg PO BID 10/04/23 03/01/24 divalproex 250 mg tablet,delayed See Rx Instructions .Route 11/25/23 03/01/24 release .COMPLEX #90 tabs lorazepam 0.5 mg tablet 0.25 - 0.5 mg PO TID PRN PRN 12/03/23 03/01/24 atorvastatin 20 mg tablet 20 mg PO DAILY 12/18/23 03/01/24 lorazepam 0.5 mg tablet See Rx Instructions PO BID PRN 01/07/24 03/01/24 anxiety #60 tabs quetiapine 100 mg tablet (Seroquel) 100 - 200 mg PO BID 01/26/24 03/01/24 Previous Rx's Medication Instructions Recorded pramipexole 0.25 mg tablet 0.25 mg PO DAILY #30 tabs 07/24/23 divalproex 250 mg tablet,delayed See Rx Instructions .Route 11/25/23 release .COMPLEX #90 tabs lorazepam 0.5 mg tablet See Rx Instructions PO BID PRN 01/07/24 anxiety #60 tabs Allergies Allergy/AdvReac Type Severity Reaction Status Date / Time No Known Allergies Allergy Verified 02/29/24 18:47 General Stated Complaint: Dizzy/Sync JOANA: 3 Review of Systems All systems reviewed & are unremarkable except as noted in HPI and below Exam Narrative Exam Narrative: 1.Const: Well-nourished, Well-developed, appearing stated age 2.Eyes: PERRL, no conjunctival injection, and symmetrical lids. 3.ENT: Atraumatic external nose and ears. Moist MM. Neck: Symmetric, trachea midline, No thyromegaly. There is no evidence of raccoon eyes, weir sign, CSF rhinorrhea, mastoid tenderness, cranial crepitus, hemotympanum, exophthalmos, or hyphema. Patient demonstrates intact dentition with no signs of tooth avulsion or fracture, no signs of jaw deformity, no evidence of a LeFort's fracture, with an intact palate, nose and orbital region. There is no evidence of a nasal s eptal hematoma. No proptosis. Jaw closes symmetrically. Airway is clear. Patient does have cerumen blocking his right tympanic membrane, and I am not able to fully visualize for evidence of hemotympanums. 4.CVS: +S1/S2, No murmurs or gallops. Peripheral pulses 2+ and equal in all extremities. Brisk capillary refill in all extremities. 5.RESP: Unlabored respiratory effort. Clear to auscultation bilaterally. No wheezes rales or rhonchi 6.GI: Soft, Nontender/Nondistended, No hepatosplenomegaly. No guarding or rebound. 7.MSK: Normocephalic/Atraumatic, Extremities w/o deformity or ttp No cyanosis or clubbing, Normal movement of all extremities. No midline cervical thoracic or lumbar spine tenderness 8.Skin: Warm, Dry. Patient does have a abrasion/superficial laceration on his right scalp that seems to be healing well with a small contusion over that area and mild hematoma. 9.Neuro: review appraiser II-XII grossly intact. Sensation grossly intact, no focal neurologic deficits. All 6 cardinal planes of vision are fully intact. No evidence of rotatory or vertical nystagmus. The patient demonstrated a normal [id number]-[id number], good dexterity. There was no evidence of dysdiadochokinesia. Patient was able to ambulate without difficulty. There was no wide-based gait. Romberg testing was normal. Pogb-gu-hvwv testing was normal. Sensation was intact bilaterally as well as muscle strength bilaterally for all extremities. Patient was able to verbalize butter cup with no slurring, or miss pronunciation. 10.Psych: (AAO) x3. Appropriate mood and affect Course Vital Signs Vital signs: Vital Signs Temperature 36.8 C 07/09/24 16:04 Pulse 74 02/29/24 16:04 Respiratory Rate 15 02/29/24 16:04 Blood Pressure 141/89 H 02/29/24 16:04 Pulse Oximetry 97 02/29/24 16:04 Temperature 36.8 C 02/29/24 16:04 Temperature Source Temporal Artery Scan 02/29/24 16:04 Pulse 74 02/29/24 16:04 Respiratory Rate 15 02/29/24 16:04 Blood Pressure 141/89 H 02/29/24 16:04 Blood Pressure Position Sitting 02/29/24 16:04 Pulse Oximetry 97 02/29/24 16:04 Oxygen Delivery Method Room Air 02/29/24 16:04 Oxygen Flow Rate 0 02/29/24 16:04 Pain Level 0 02/29/24 16:04 Lab/Test Results Lab/Test Results: Laboratory Tests Range/Units 02/29/24 02/29/24 16:40 17:00 WBC (4.4-10.8) 10^3/uL 7.57 RBC (4.36-5.78) 10^6/uL 4.34 L Hgb (13.5-17.5) g/dL 12.9 L Hct (40.0-50.0) % 38.1 L MCV (80-95) fL 88 MCH (27.0-33.0) pg 29.7 MCHC (32.0-36.0) % 33.9 RDW (11.8-14.1) % 12.2 Plt Count (130-400) 10^3/uL 217 MPV (8.0-11.0) fL 9.7 Immature Gran % % 0.8 Neutrophils % % 54.2 Lymphocytes % % 25.1 Monocytes % % 17.4 Eosinophils % % 2.1 Basophils % % 0.4 Nucleated RBC % (0.0-0.3) % 0.0 Absolute Neutrophils (1.2-6.7) 10^3/uL 4.10 Absolute Lymphocytes (1.2-3.4) 10^3/uL 1.90 Absolute Monocytes (0.1-0.8) 10^3/uL 1.32 H Absolute Eosinophils (0.0-0.7) 10^3/uL 0.16 Absolute Basophils (0.0-0.2) 10^3/uL 0.03 VBG pH (7.31-7.41) 7.42 H VBG pCO2 (41-51) mmHg 41 VBG pO2 mmHg 35 VBG HCO3 (23-28) mmol/L 27 VBG Total CO2 (24-29) mmol/L 24 VBG O2 Saturation % 65 VBG Base Excess (-2-3) mmol/L 2 Sodium (136-145) mmol/L 131 L Potassium (3.5-5.1) mmol/L 4.3 Chloride (98-107) mmol/L 95 L Carbon Dioxide (21.0-32.0) mmol/L 27.6 Anion Gap (3-11) mmol/L 8.4 BUN (7-18) mg/dL 12 Creatinine (0.70-1.30) mg/dL 1.0 Est GFR (CKD-EPI 2020) (mL/min/1.73m2) 77.04 Glucose (74-106) mg/dL 109 H Calcium (8.5-10.1) mg/dL 8.8 Total Bilirubin (0.2-1.0) mg/dL 0.43 AST (15-37) U/L 23 ALT (16-63) U/L 26 Alkaline Phosphatase (46-116) U/L 117 H Ammonia (11-32) umol/L 25 Troponin I (< or =60) ng/L < 50 Total Protein (6.4-8.2) g/dL 6.9 Albumin (3.4-5.0) g/dL 3.3 L TSH (0.36-3.74) uIU/mL 6.28 H Free T4 (0.76-1.46) ng/dL 0.88 Urine Color (Yellow) Yellow Urine Clarity (Clear) Clear Urine pH (5-8) 7.0 Ur Specific [place] (1.005-1.025) 1.015 Urine Protein (Neg-Trace) mg/dL Negative Urine Ketones (Negative) mg/dL Trace H Urine Blood (Negative) Negative Urine Nitrite (Negative) Negative Urine Bilirubin (Negative) Negative Urine Urobilinogen (Up to 0.2) mg/dL 1.0 H Ur Leukocyte Esterase (Negative) Negative Urine Glucose (Negative) mg/dL Negative Valproic Acid ( - 150) ug/mL 73.6 Ethyl Alcohol (<10) mg/dL < 3.0 Medical Decision Making This is a 78-year-old male with a past medical history of coronary artery disease, hypertension, hypothyroidism, high cholesterol, diabetes, not on any blood thinners restless leg syndrome, who presents today for evaluation of confusion and weakness. Patient states that over the last week or so he has been up slightly more confused and weak compared to normal. He states that he has been sleeping often. Family member who is at bedside states that this has been notably pronounced, and when he went to physical therapy today it was significant enough that the physical therapist recommended he come to the ER for further evaluation. Patient does recommend falling and hitting his head about 6 to 7 days ago. He struck the right side of his head, but denies any loss of consciousness. He is not on any blood thinners. He denies any other complaints. He denies any vomiting, diarrhea, current headache, vision changes, numbness, tingling, or focal weakness. No other modifying factors at this time. Physical exam demonstrates a superficial laceration over the right temporal aspect of his scalp, mild hematoma, no bony depressions. No midline cervical thoracic lumbar spine tenderness. Patient's neurologic assessment is unremarkable, however subjectively he and his partner feel that his mind is notably waning in the past week. He is also very tired. Differential includes infection, electrolyte abnormality, dehydration, and also of concern potential intracranial etiology like subdural hematoma or intraparenchymal bleed after the initial trauma few days ago. Unfortunately the CT scanner is currently down, there is no availability for CAT scan at this time. MRIs not available either. Patient was given a 500 cc normal saline bolus, he was evaluated medically and showed no white count, platelets were normal, hemoglobin stable at 12.9. pH stable at 7.42 with no hypercarbic respiratory acidosis. Electrolytes stable with a sodium of 131, potassium 4.3, BUN/creatinine normal with a GFR of 77, glucose normal at 109, troponin normal, EKG stable, thyroid function demonstrates elevated TSH at 6.28 however normal free T4 at 0.88. Urinalysis shows no evidence of infection although does show mild ketones. Depakote level is within therapeutic window at 73. Alcohol level negative. I discussed these findings with the patient, we discussed transfer for CT imaging, patient is notably stable at this time, and accepts transfer to [facility] for CT imaging. Patient and family have requested to leave in an expedited fashion and will be going POV. Patient is hemodynamically stable at this time but I do feel that he requires CT imaging to rule out other acute processes. Discussed the case with the emergency department physician, he agrees with the assessment and plan. Patient will be transferred for further management. Quality:SDOH Health Related Social Needs: Health related social needs personal safety PFSH All Active Problems (Updated 03/01/24 @ 07:41 by Carmella Chowdhury) Confusion (Chronic) Viral encephalitis (Acute) Left bundle-branch block (Acute) Ventricular ectopy (Acute) Mixed hyperlipidemia (Acute) Atherosclerosis of [place] coronary artery (Acute) Generalized anxiety disorder (Acute) Recurrent major depressive disorder (Chronic) RLS (restless legs syndrome) (Acute) Hearing loss (Acute) Insomnia (Acute) Stable angina (Acute) Hypothyroidism (Chronic 12/11/13) Essential hypertension (Acute) Medical History Right rotator cuff tear Altered mental status (04/10/17) [facility] NEG [facility] Acute pericarditis (~1968) Mental and behavioral problem Impaired fasting glucose Intertrigo Right-sided chest pain Altered mental status History of behavioral and mental health problems Acute hyponatremia Hypomania Surgical History Status post vasectomy History of arthroscopy of knee History of appendectomy Stent placement 09/10/16-[facility] Family History Mother Diabetes Essential hypertension Father Diabetes Neoplasm PROSTATE Sister Diabetes Neoplasm MULTI-MYELOMA Sister Diabetes Essential hypertension Brother Heart disease Grandfather Neoplasm STOMACH Grandfather Ruptured appendix Daughter Substance use disorder Social History Smoking/Tobacco Use Status: Former Tobacco Use tobacco type: cigarettes Smoking risk assessment performed?: Yes Alcohol Intake: former Drug use: Current Sobriety Substance use type: does not use Adopted: No Caregiver/Support person: Yes Household members: caregiver Housing: house Number of Children: 2 number of grandchildren: 4 Communication Needs: Hard of Hearing and Corrective Lenses Education Level: high school Do you need help understanding health information?: Often current occupation: retired Pets and animals: Yes Sexually active: No Do you think of yourself as: straight/heterosexual Current gender identity: male What is your relationship status?: How often do you talk on the phone with friends or family?: three or more times per week How often do you get together with friends or relatives?: once per week How often do you attend spiritism or congregation services?: decline to answer Do you belong to any clubs or organized social groups?: no Panel score (0-1 are the most socially isolated patients): 2 What type of physical activity do you participate in: none and assisted ambulation Frequency: does not exercise Laxmi/Religious: Congregation Agree to transfusion: No Seatbelt use: always Drive intox or ride w/intox lyft driver: No Working smoke detector in home: Yes Fire extinguisher in home: Yes Firearms in home: No Do you feel safe at home: Yes Additional Social history: Live with care provider named Skyla Aden in [place]. but lives apart from his . Was on hospice but discharged due to improvement. Was hospitalized for many months in [facility] during 2022. Discharged from that facility last fall. Had a legal guardian in place in addition to his ; now just his . Is able to give brief short accurate history of recent events.
== END 2024-02-29 19:28 | disposition home or self-care (01) ==
PROVIDERS: Emergency Provider Student in an Organized Health Care Education/Training Program; PCP Nurse Practitioner Family
DX: R42 Dizziness and giddiness (principal); I10 Essential (primary) hypertension; W18.00XA Striking against unspecified object with subsequent fall, initial encounter
CPT/HCPCS: 80053; 82805; 93005; 96360; 99284; 80164; 80320; 81003; 82140; 84439; 84443; 84484; 85025; 93010; 99283

== ENCOUNTER → 2024-03-29 13:37 | Outpatient (BNVA) | payer MEDICARE, SELFPAY | PROVIDERS: PCP Nurse Practitioner Family; Visit Provider Psychiatry & Neurology Neurology | DX: A86 Unspecified viral encephalitis (principal) | CPT/HCPCS: 99215 ==

== ENCOUNTER → 2024-04-25 10:11 | Outpatient (BNVA) | payer MEDICARE, SELFPAY | PROVIDERS: PCP Nurse Practitioner Family; Visit Provider Student in an Organized Health Care Education/Training Program | DX: S86.002D Unspecified injury of left Achilles tendon, subsequent encounter (principal); X58.XXXD Exposure to other specified factors, subsequent encounter | CPT/HCPCS: 99213 ==

== ENCOUNTER 2024-07-13 12:35 | Outpatient (REF) | payer MEDICARE, SELFPAY ==
[2024-07-13 15:40] LABS: Bilirubin Negative (Negative); Blood Negative (Negative); Clarity Clear (Clear); Glucose Negative (Negative); Ketones Negative (Negative); Leukocyte Esterase Negative (Negative); Nitrite Negative (Negative); Specific Gravity 1.015 (1.005-1.025); Urobilinogen 0.2 mg/dL (Up to 0.2)
== END 2024-07-13 12:36 | disposition home or self-care (01) ==
LOC: LBN 12:35
PROVIDERS: PCP Nurse Practitioner Family; Visit Provider Nurse Practitioner
DX: R32 Unspecified urinary incontinence (principal); R35.0 Frequency of micturition; R39.15 Urgency of urination
CPT/HCPCS: 81003

== ENCOUNTER 2024-09-01 00:20 | Outpatient (CLI) | payer MEDICARE, SELFPAY ==
--- NOTE | 2024-09-01 07:30 | DI.MRI_ITS ---
Exam(s) MR LUMBAR SPINE WO EXAM: MR LUMBAR SPINE WO CLINICAL HISTORY: Failing PT,chronic bilat low back pain,m54.50. TECHNIQUE: Multiplanar multisequence MRI of the Lumbar spine was performed. COMPARISON: No exams were available for comparison FINDINGS: Bones: The last intervertebral disc space is designated the L5/S1 level for the numbering purpose of this examination. The vertebral body heights are well maintained. Alignment is satisfactory. Degene rative endplate signal changes are seen from L2-3 through L5-S1. Cord: The conus tip ends at the T12-L1 level. It is of normal size and signal intensity. T12-L1: No disc herniations or bulges are present. No central spinal canal or neural foraminal stenos is. L1-2: No disc herniations or bulges are present. No central spinal canal or neural foraminal stenosis . L2-3: There is a diffuse disc bulge. Degenerative changes of the facets are seen. The findings resu lt in moderate central spinal canal stenosis. No significant right neural foraminal stenosis. There is moderate left neural foraminal stenosis. L3-4: There is a diffuse disc bulge. There are degenerative changes of the facets. There is also mi ld hypertrophy of the ligamentum flavum. These all contribute to cause moderate central spinal canal stenosis. There is moderate bilateral neural foraminal stenosis. L4-5: There is a mild diffuse disc bulge. There are degenerative changes of the facets and hypertrop hy of the ligamentum flavum. There is mild narrowing of the central spinal canal. There is marked r ight neural foraminal stenosis. No significant left neural foraminal stenosis is present. L5-S1: There is a small central disc herniation. There are degenerative changes of the facets. No s ignificant central spinal canal stenosis is present. There is mild right and moderate left neural fo raminal stenosis. Soft tissues: The visualized SI joints and sacrum are well maintained. The paraspinal soft tissues ar e unremarkable. IMPRESSION: Multilevel degenerative changes in the lumbar spine resulting in central spinal canal or neural dmitry inal stenosis as described above. DATA REPOSITORY:
== END 2024-09-01 00:40 ==
LOC: DI 00:20
PROVIDERS: PCP Nurse Practitioner Family; Visit Provider Nurse Practitioner Family
DX: M48.062 Spinal stenosis, lumbar region with neurogenic claudication (principal)
CPT/HCPCS: 72148

== ENCOUNTER → 2024-09-25 13:09 | Outpatient (BNVA) | payer MEDICARE, SELFPAY | PROVIDERS: PCP Nurse Practitioner Family; Visit Provider Psychiatry & Neurology Neurology | DX: M48.061 Spinal stenosis, lumbar region without neurogenic claudication (principal); A86 Unspecified viral encephalitis | CPT/HCPCS: 99214 ==

== ENCOUNTER 2024-10-25 15:12 | Inpatient (IN) | payer MEDICARE, SELFPAY ==
[2024-10-25] VITALS (54 sets, daily range): BP systolic 120–160; BP diastolic 27–128; PULSE 76–105; RESP 13–33; TEMP 36.7–38.3; O2SAT 90–94
--- NOTE | 2024-10-25 15:15 | RT.EKG_ITS ---
APPROVED REPORT Exam: Resting ECG Reason for Exam: weakness Patient Location: E HR:98 bpm ECG Measurements Heart Rate 98 AXIS [place] 186 P 63 QRSd 156 QRS -57 QT 395 T 115 QTc 505 Conclusion Sinus rhythm...normal P axis, V-rate 60- 99 Left bundle branch block...QRSd>120, broad/notched R ST elevation secondary to IVCD...Multiple VCG criteria Sinus rhythm with LBBB and ST evelvation. No change from prior 02/29/24. WD
--- NOTE | 2024-10-25 15:24 | W.ED.GENAD ---
Discharge Plan Disposition Patient Disposition: Admit to [facility] Condition: Stable Discharge Details Chief Complaint: CVA/TIA Clinical Impression: Transient ischemic attack, Pneumonia Admit Date/Time: 10/25/24 19:10 Admit Provider: Osvadlo Polk Attending Provider: Osvaldo Polk Primary Care Provider: Kevin Rosales ED Provider: Gage Simpson HPI General Date/Time Provider Initiated Documentation: 10/25/24 15:23. HPI Narrative: 79 year-old male presents to ED today by POV/ambulating with unsteady gait with account retention representative with a chief complaint of leftward leaning, unsteady gait which is new, usually uses a cane, and slow to respond- with concurrent onset of chest congestion/cough over the last few days- was brought to [facility] for URI symptoms- referred to ER concern for CVA ruleout with last known well time 0730 this morning. Quality described as denies hemiparesis, numbness/tingling, wordfinding difficulty- patient is poor historian and trails off to many questions, no radiation to chest pain, respiratory distress, abdominal pain, fever, nausea/vomiting. Severity is described as moderate. Palliating factors include nothing specific attempted. Provoking factors include nothing specific. Events leading up to the incident/Associated Symptoms: Patient got out of bed this morning, went to have a BM, and when he came out he was somewhat slumping to the left- he did eat breakfast, after which his account retention representative decided to have him evaluated for his URI for the past few days. Patient not anticoagulated. Related Data Home Medications ?Medication ?Instructions ?Recorded ?Confirmed pramipexole 0.25 mg tablet 0.25 mg PO DAILY #30 tabs 07/24/23 10/25/24 melatonin 5 mg capsule 5 mg PO QHS 10/04/23 10/25/24 metformin 500 mg tablet 500 mg PO BID 10/04/23 10/25/24 atorvastatin 20 mg tablet 20 mg PO DAILY 12/18/23 10/25/24 diaper,brief,adult,disposable #32 ea 07/13/24 10/25/24 (Fitted Briefs Large) divalproex 250 mg tablet,delayed See Rx Instructions .Route 09/19/24 10/25/24 release .COMPLEX #90 tabs lorazepam 0.5 mg tablet See Rx Instructions PO BID PRN 10/04/24 10/25/24 anxiety #60 tabs quetiapine 150 mg tablet 150 mg PO QAM #30 tabs 10/16/24 10/25/24 quetiapine 200 mg tablet 200 mg PO QHS #30 tabs 10/16/24 10/25/24 Previous Rx's ?Medication ?Instructions ?Recorded pramipexole 0.25 mg tablet 0.25 mg PO DAILY #30 tabs 07/24/23 diaper,brief,adult,disposable #32 ea 07/13/24 (Fitted Briefs Large) divalproex 250 mg tablet,delayed See Rx Instructions .Route 09/19/24 release .COMPLEX #90 tabs lorazepam 0.5 mg tablet See Rx Instructions PO BID PRN 10/04/24 anxiety #60 tabs quetiapine 150 mg tablet 150 mg PO QAM #30 tabs 10/16/24 quetiapine 200 mg tablet 200 mg PO QHS #30 tabs 10/16/24 Allergies Allergy/AdvReac Type Severity Reaction Status Date / Time No Known Allergies Allergy Verified 10/25/24 15:24 General Stated Complaint: CVA/TIA JOANA: 3 Review of Systems All systems reviewed & are unremarkable except as noted in HPI and below Exam Narrative Exam Narrative: GENERAL APPEARANCE: Well-nourished, non-toxic, awake and alert, atraumatic, no acute distress. SKIN: Warm, pink, dry, intact, without rashes/lesions/ulcerations. HEAD: Normocephalic, atraumatic, normal hair distribution for gender/age. EYES: Normal conjunctiva, no exudates on lids/lashes, visual fung intact, vision grossly intact ENT: Nares patent, no circumoral cyanosis, no facial swelling NECK: Supple, trachea midline, painless cervical ROM. LUNGS/CHEST: Lungs CTA bilaterally-no rhonchi/rales/wheezes diffusely, non-labored respirations, normal A/P diameter, symmetrical expansion, no chest wall deformity HEART (CV/PV): Regular rate and rhythm without murmur, no peripheral edema, no JVD. ABDOMEN: Soft, non-distended, no guarding, no tenderness. MSK: Normal ROM, no swelling/deformity to bilateral UEs or LEs, moving all extremities without weakness, no cyanosis, spine midline without tenderness, normal curvature. NEURO: Mental Status altered- alert to person, questionable alertness to place, knows he is in [place] but not at a hospital, alert to year, questionable events awareness No facial droop, no forehead involvement. Motor: No focal weakness - strength 5/5 in bilateral UEs and LEs, proximal and distal, symmetric. Question mild pronator drift of left upper extremity Sensory: sensation intact to light touch globally. Gait NT. PSYCH: euthymic, cooperative, pleasant, appropriate speech Course Vital Signs Vital signs: Vital Signs Temperature 36.9 C 10/25/24 15:18 Pulse 90 10/25/24 15:18 Respiratory Rate 18 10/25/24 15:18 Blood Pressure 145/128 H 10/25/24 15:18 Pulse Oximetry 91 L 10/25/24 15:18 Temperature 36.9 C 10/25/24 15:18 Pulse 90 10/25/24 15:18 Respiratory Rate 18 10/25/24 15:18 Blood Pressure 145/128 H 10/25/24 15:18 Pulse Oximetry 91 L 10/25/24 15:18 Oxygen Delivery Method Room Air 10/25/24 15:18 Oxygen Flow Rate 0 10/25/24 15:18 Pain Level 0 10/25/24 15:18 Medical Decision Making This dictation utilizes [id number] dictation software and may contain unedited grammatical errors. 79 year-old male presents to ED today by POV/ambulating with unsteady gait with account retention representative with a chief complaint of leftward leaning, unsteady gait which is new, usually uses a cane, and slow to respond- with concurrent onset of chest congestion/cough over the last few days- was brought to [facility] for URI symptoms- referred to ER concern for CVA ruleout with last known well time 0730 this morning. Quality described as denies hemiparesis, numbness/tingling, wordfinding difficulty- patient is poor historian and trails off to many questions, no radiation to chest pain, respiratory distress, abdominal pain, fever, nausea/vomiting. Severity is described as moderate. Palliating factors include nothing specific attempted. Provoking factors include nothing specific. Events leading up to the incident/Associated Symptoms: Patient got out of bed this morning, went to have a BM, and when he came out he was somewhat slumping to the left- he did eat breakfast, after which his account retention representative decided to have him evaluated for his URI for the past few days. Patients' medical history: History of altered mental status going back to at least 2017, history of acute pericarditis 1968, mental and behavioral problem, hyponatremia, viral encephalitis, ventricular ectopy, hypertension. Family and social history: Has 24/7 care, eats a normal diet, no recent travel, no EtOH use. Pertinent exam findings / vital signs include no overt weakness of upper or lower extremities, patient is alert to year and place but cannot state he is in a hospital, question pronator drift left upper extremity, vision grossly intact, benign abdomen, benign cardiopulmonary exam. NIH: 2 Differential / pathologies of concern include URI, electrolyte disturbance, CVA/TIA, encephalopathy, psychogenic altered mental status. Diagnostic studies of: -CBC, CMP, BNP, serial troponins, TSH, magnesium, PT/PTT/INR, UA, FSBS, CTA head and neck, EKG, chest x-ray. -CBC is unremarkable, no leukocytosis, no left shift -CMP shows mild KERVIN 1.6 -Magnesium mildly low, will replete -Serial troponins negative -Mildly elevated BNP possibly linked with KERVIN -Elevated TSH, T4 within normal limits -PCR respiratory swab negative -Chest x-ray shows a right upper lobe pneumonia, will give antibiotics -CT of the head neck shows no acute pathology -EKG shows chronic left bundle branch block, sinus rhythm at 98 bpm no Sgarbossa criteria, normal intervals Interventions of: -P.o. acetaminophen, p.o. Motrin, IV ceftriaxone, IV azithromycin, IV magnesium sulfate. One 325 mg aspirin given after neuroconsult. -Telemetry neuroconsult for possible TIA versus possible altered status from his frontotemporal dementia and concurrent pneumonia with fever -Teleneurology does recommend giving aspirin and getting MRI tomorrow but has low suspicion as his complaints could be due to his chronic conditions stated above, needs definitive rule out -Consulted with hospitalist Dr. Polk, accepted for admission at 1910 ED Course/Assessment/Plan: 79-year-old male presents from home, he is a palliative care patient with frontotemporal dementia, states he has been off all day, perseverating, altered mentation and leaning to the left with unsteady gait, he did have a questionable mild left pronator drift on initial stroke exam, he is outside window for any tPA and not likely to be a retrieval candidate, CTA was negative. He does have a right pneumonia on chest x-ray which will be treated by IV antibiotics, he developed a fever and he has been mildly hypoxic to 91% at rest, likely needs admission, was accepted by hospitalist service after teleneuro consult. Findings not consistent with sepsis, CVA. Disposition of Transient Ischemic Attack, Pneumonia. Patient verbalized understanding of the plan and return to ED criteria and engaged in shared decision making. Medical Records Medical records reviewed: Yes I reviewed the patient's medical records. Imaging Data Radiologic Study: Attestation: I personally reviewed and interpreted this imaging study as follows: Imaging: CT Scan Radiologist's impression: EXAM: CT BRAIN NECK CTA CLINICAL HISTORY: leaning to the left, unsteady onset 729. TECHNIQUE: Imaging Protocol: Axial CT angiography was performed with multi-slice acquisition and multi-planar and MIP reconstructions. CONTRAST MATERIAL: Intravenous: Omnipaque 350 Contrast volume:100 ml COMPARISON: CT CT HEAD WO from 12/18/2023 FINDINGS: CT Head W/O and W contrast: Ventricles and Extra axial spaces: Normal in size and morphology for the patient's age. Hemorrhage: None. Cerebral parenchyma: No evidence of acute infarct or mass. Mild atrophy.. White matter changes of small vessel disease. Old bilateral basal ganglia lacunar infarcts. Midline shift: None. Brainstem/Cerebellum: No acute findings.. Calvarium: Normal. Visualized Paranasal sinuses/Mastoids: Mucosal thickening of the ethmoid and maxillary sinuses. Soft Tissues: Unremarkable. Enhancement: Normal. CTA Brain W: Internal Carotid Arteries: Petrous: Normal. Cavernous: Mild calcification but no significant stenosis. Cerebral: Normal. Middle Cerebral Arteries: Right: No aneurysm, occlusion or significant stenosis. Left: No aneurysm, occlusion or significant stenosis. Anterior Cerebral Arteries: Right: No aneurysm, occlusion or significant stenosis. Left: No aneurysm, occlusion or significant stenosis. Posterior cerebral Arteries: Right: No aneurysm, occlusion or significant stenosis. Left: No aneurysm, occlusion or significant stenosis. Vertebral Arteries: Right: No aneurysm, occlusion or significant stenosis. Left: No aneurysm, occlusion or significant stenosis. Basilar Artery: No aneurysm, occlusion or significant stenosis. CTA Neck W: Common Carotid: Calcification at both common carotid bulbs, left greater than right. Right: No dissection, occlusion or significant stenosis. Left: No dissection, occlusion or significant stenosis. External Carotid: Right: No dissection, occlusion or significant stenosis. Left: No dissection, occlusion or significant stenosis. Internal Carotid: Right: Mild calcification proximally. No dissection, occlusion or significant stenosis. Left: Moderate multifocal calcification proximally. Approximate 50 percent stenosis, stable from prior. No dissection, occlusion. Vertebral Artery: Right: No dissection, occlusion or significant stenosis. Left: Dominant no dissection, occlusion or significant stenosis. Lung Apices: Limited evaluation due to motion. Scarring right upper lobe. Bones: No acute abnormality. Degenerative changes in the spine. Soft Tissues: Normal. IMPRESSION: 1. CTA brain: Normal CTA examination of the [place]. 2. Head CT: No acute abnormality. 3. CTA neck: Calcification at the right proximal internal carotid artery causing plus min 50 percent stenosis, unchanged from prior. No new abnormalities. Radiologic Study #2: Attestation: I personally reviewed and interpreted this imaging study as follows: Imaging: X-Ray Radiologist's impression: EXAM: XR CHEST 2V PA LATERAL CLINICAL HISTORY: cough TECHNIQUE: 2D digital imaging was performed. Two views. COMPARISON: CT CT BRAIN NECK CTA from 11/08/2023 CR XR CHEST 2V PA LATERAL from 11/08/[address] CHEST WO from 12/18/[address] HEAD WO from 12/18/[address] BRAIN NECK CTA from 10/25/2024 FINDINGS: Exam is limited by suboptimal pulmonary inflation on both views. HEART: Normal size. Aorta: Not dilated. PULMONARY VASCULATURE: Normal. MEDIASTINUM: Unremarkable. LUNGS: Patchy infiltrate noted in the right upper lobe. Linear density seen at the left lung base, atelectasis and/or scarring. PLEURAL SPACE: No pleural effusion or pneumothorax. BONE:Unremarkable for age. SOFT TISSUES: Unremarkable. IMPRESSION: Right upper lobe pneumonia. Lab Data Lab results reviewed: Yes I reviewed the patient's lab results. Labs: Laboratory Tests Range/Units 10/25/24 10/25/24 10/25/24 15:35 15:46 16:54 WBC (4.4-10.8) 10^3/uL 4.43 RBC (4.36-5.78) 10^6/uL 4.41 Hgb (13.5-17.5) g/dL 13.2 L Hct (40.0-50.0) % 39.2 L MCV (80-95) fL 89 MCH (27.0-33.0) pg 29.9 MCHC (32.0-36.0) % 33.7 RDW (11.8-14.1) % 13.0 Plt Count (130-400) 10^3/uL 145 MPV (8.0-11.0) fL 9.6 Immature Gran % % 0.0 Neutrophils % % 61.0 Band Neutrophils % % 1 Lymphocytes % % 13.0 Atypical Lymphs % % 0 Monocytes % % 25.0 Eosinophils % % 0.0 Basophils % % 0.0 Nucleated RBC % (0.0-0.3) % 0.0 Absolute Neutrophils (1.2-6.7) 10^3/uL 2.75 Absolute Lymphocytes (1.2-3.4) 10^3/uL 0.58 L Absolute Monocytes (0.1-0.8) 10^3/uL 1.11 H Absolute Eosinophils (0.0-0.7) 10^3/uL 0.00 Absolute Basophils (0.0-0.2) 10^3/uL 0.00 RBC Morphology Normal PT (9.1-11.1) sec 10.7 INR (0.9-1.1) 1.1 APTT (20.6-30.2) sec 28.1 Sodium (136-145) mmol/L 133 L Potassium (3.5-5.1) mmol/L 3.8 Chloride (98-107) mmol/L 95 L Carbon Dioxide (21.0-32.0) mmol/L 28.8 Anion Gap (3-11) mmol/L 9.2 BUN (7-18) mg/dL 29 H Creatinine (0.70-1.30) mg/dL 1.6 H Est GFR (CKD-EPI 2020) (mL/min/1.73m2) 43.56 Glucose (74-106) mg/dL 127 H Calcium (8.5-10.1) mg/dL 8.8 Magnesium (1.8-2.4) mg/dL 1.7 L Total Bilirubin (0.2-1.0) mg/dL 0.88 AST (15-37) U/L 26 ALT (16-63) U/L 24 Alkaline Phosphatase (46-116) U/L 78 Troponin I (<or=76) ng/L 37 39 NT-Pro-B Natriuret Pep (<300) pg/mL 1122 H Total Protein (6.4-8.2) g/dL 7.3 Albumin (3.4-5.0) g/dL 3.5 TSH (0.36-3.74) uIU/mL 3.75 H COVID-19 Source Nasopharynx SARS-CoV-2 (PCR) (Negative) Negative Influenza Type A (PCR) (Negative) Negative Influenza Type B (PCR) (Negative) Negative RSV (PCR) (Negative) Negative Quality:SDOH Health Related Social Needs: No Data to Display PFSH All Active Problems (Updated 10/25/24 @ 22:[address]) Pneumonia (Acute) Transient ischemic attack (Acute) Pneumonia (Acute) Lumbar radiculitis (Acute) Lumbar spondylosis (Acute) Lumbar stenosis (Acute) Nocturia (Acute) DJD (degenerative joint disease), lumbar (Acute) Lower back pain (Acute) Urinary urgency (Acute) Urinary frequency (Acute) Urinary incontinence (Acute) Agitation (Acute) Bipolar 1 disorder (Acute) Viral encephalitis (Acute) Left bundle-branch block (Acute) Ventricular ectopy (Acute) Mixed hyperlipidemia (Acute) Atherosclerosis of [place] coronary artery (Acute) Generalized anxiety disorder (Acute) Recurrent major depressive disorder (Chronic) RLS (restless legs syndrome) (Acute) Hearing loss (Acute) Insomnia (Acute) Stable angina (Acute) Hypothyroidism (Chronic 12/11/13) Essential hypertension (Acute) Medical History Right rotator cuff tear Altered mental status (04/10/17) [facility]; NEG MRI Acute pericarditis (~1969) Mental and behavioral problem Impaired fasting glucose Intertrigo Right-sided chest pain Altered mental status History of behavioral and mental health problems Acute hyponatremia Hypomania Surgical History Status post vasectomy History of arthroscopy of knee History of appendectomy Stent placement 09/10/16-[facility] Family History Mother Diabetes Essential hypertension Father Diabetes Neoplasm PROSTATE Sister Diabetes Neoplasm MULTI-MYELOMA Sister Diabetes Essential hypertension Brother Heart disease Grandfather Neoplasm STOMACH Grandfather Ruptured appendix Daughter Substance use disorder Social History Smoking/Tobacco Use Status: Former Tobacco Use tobacco type: cigarettes Smoking risk assessment performed?: Yes Alcohol Intake: former Drug use: Current Sobriety Substance use type: does not use Adopted: No Caregiver/Support person: Yes Household members: caregiver Housing: house Number of Children: 2 number of grandchildren: 4 Communication Needs: Hard of Hearing and Corrective Lenses Education Level: high school Do you need help understanding health information?: Often current occupation: retired Pets and animals: Yes Sexually active: No Do you think of yourself as: straight/heterosexual Current gender identity: male What is your relationship status?: How often do you talk on the phone with friends or family?: three or more times per week How often do you get together with friends or relatives?: once per week How often do you attend sikh or hinduism services?: decline to answer Do you belong to any clubs or organized social groups?: no Panel score (0-1 are the most socially isolated patients): 2 What type of physical activity do you participate in: none and assisted ambulation Frequency: does not exercise Laxmi/Anabaptist: Orthodoxy Agree to transfusion: No Seatbelt use: always Drive intox or ride w/intox tank truck driver: No Working smoke detector in home: Yes Fire extinguisher in home: Yes Firearms in home: No Do you feel safe at home: Yes Additional Social history: Live with care provider named Skyla Aedn in [place]. but lives apart from his . Was on hospice but discharged due to improvement. Was hospitalized for many months in [facility] during 2022. Discharged from that facility last fall. Had a legal guardian in place in addition to his ; now just his . Is able to give brief short accurate history of recent events.
--- NOTE | 2024-10-25 15:30 | DI.CT_ITS ---
Exam(s) CT BRAIN NECK CTA EXAM: CT BRAIN NECK CTA CLINICAL HISTORY: leaning to the left, unsteady onset 729. TECHNIQUE: Imaging Protocol: Axial CT angiography was performed with multi-slice acquisition and mu lti-planar and MIP reconstructions. CONTRAST MATERIAL: Intravenous: Omnipaque 350 Contrast volume:100 ml COMPARISON: CT CT HEAD WO from 12/18/2023 FINDINGS: CT Head W/O and W contrast: Ventricles and Extra axial spaces: Normal in size and morphology for the patient's age. Hemorrhage: None. Cerebral parenchyma: No evidence of acute infarct or mass. Mild atrophy.. White matter changes of s [place] vessel disease. Old bilateral basal ganglia lacunar infarcts. Midline shift: None. Brainstem/Cerebellum: No acute findings.. Calvarium: Normal. Visualized Paranasal sinuses/Mastoids: Mucosal thickening of the ethmoid and maxillary sinuses. Soft Tissues: Unremarkable. Enhancement: Normal. CTA Brain W: Internal Carotid Arteries: Petrous: Normal. Cavernous: Mild calcification but no significant stenosis. Cerebral: Normal. Middle Cerebral Arteries: Right: No aneurysm, occlusion or significant stenosis. Left: No aneurysm, occlusion or significant stenosis. Anterior Cerebral Arteries: Right: No aneurysm, occlusion or significant stenosis. Left: No aneurysm, occlusion or significant stenosis. Posterior cerebral Arteries: Right: No aneurysm, occlusion or significant stenosis. Left: No aneurysm, occlusion or significant stenosis. Vertebral Arteries: Right: No aneurysm, occlusion or significant stenosis. Left: No aneurysm, occlusion or significant stenosis. Basilar Artery: No aneurysm, occlusion or significant stenosis. CTA Neck W: Common Carotid: Calcification at both common carotid bulbs, left greater than right. Right: No dissection, occlusion or significant stenosis. Left: No dissection, occlusion or significant stenosis. External Carotid: Right: No dissection, occlusion or significant stenosis. Left: No dissection, occlusion or significant stenosis. Internal Carotid: Right: Mild calcification proximally. No dissection, occlusion or significant stenosis. Left: Moderate multifocal calcification proximally. Approximate 50 percent stenosis, stable from harry or. No dissection, occlusion. Vertebral Artery: Right: No dissection, occlusion or significant stenosis. Left: Dominant no dissection, occlusion or significant stenosis. Lung Apices: Limited evaluation due to motion. Scarring right upper lobe. Bones: No acute abnormality. Degenerative changes in the spine. Soft Tissues: Normal. IMPRESSION: 1. CTA brain: Normal CTA examination of the [place]. 2. Head CT: No acute abnormality. 3. CTA neck: Calcification at the right proximal internal carotid artery causing plus min 50 percent stenosis, unchanged from prior. No new abnormalities. RADIATION DOSE DELIVERED: Total DLP DATA REPOSITORY: All CT scans at this facility are submitted to the National Radiology Data Registry (NRDR) Dose Index Registry (DIR) with the [employer] (ACR). RADIATION OPTIMIZATION: All CT scans at this facility use at least one of these dose optimization te chniques: automated exposure control; mA and/or kV adjustment per patient size (includes targeted exa ms where dose is matched to clinical indication); or iterative reconstruction.
--- NOTE | 2024-10-25 15:33 | DI.RAD_ITS ---
Exam(s) XR CHEST 2V PA LATERAL EXAM: XR CHEST 2V PA LATERAL CLINICAL HISTORY: cough TECHNIQUE: 2D digital imaging was performed. Two views. COMPARISON: CT CT BRAIN NECK CTA from 11/08/2023 CR XR CHEST 2V PA LATERAL from 11/08/[address] CHEST WO from 12/18/[address] HEAD WO from 12/18/[address] BRAIN NECK CTA from 10/25/2024 FINDINGS: Exam is limited by suboptimal pulmonary inflation on both views. HEART: Normal size. Aorta: Not dilated. PULMONARY VASCULATURE: Normal. MEDIASTINUM: Unremarkable. LUNGS: Patchy infiltrate noted in the right upper lobe. Linear density seen at the left lung base, a telectasis and/or scarring. PLEURAL SPACE: No pleural effusion or pneumothorax. BONE:Unremarkable for age. SOFT TISSUES: Unremarkable. IMPRESSION: Right upper lobe pneumonia. DATA REPOSITORY: RADIATION DOSE DELIVERED:
[2024-10-25 15:48] LABS: HCT 39.2 % (40.0-50.0); HGB 13.2 g/dL (13.5-17.5); MCH 29.9 pg (27.0-33.0); MCHC 33.7 % (32.0-36.0); MCV 89 fL (80-95); MPV 9.6 fL (8.0-11.0); Platelet Count 145 10^3/uL (130-400); RBC 4.41 10^6/uL (4.36-5.78); RDW-SD 42.7 fL; WBC 4.43 10^3/uL (4.4-10.8)
[2024-10-25 16:04] LABS: INR 1.1 (0.9-1.1); PTT Activated 28.1 sec (20.6-30.2); Prothrombin Time 10.7 sec (9.1-11.1)
[2024-10-25 16:09] LABS: ALT 24 U/L (16-63); AST 26 U/L (15-37); Albumin 3.5 g/dL (3.4-5.0); Alkaline Phosphatase 78 U/L (46-116); Anion Gap 9.2 mmol/L (3-11); BUN 29 mg/dL (7-18); Bilirubin, Total 0.88 mg/dL (0.2-1.0); CO2 28.8 mmol/L (21.0-32.0); CREATININE 1.6 mg/dL (0.70-1.30); Calcium 8.8 mg/dL (8.5-10.1); Chloride 95 mmol/L (98-107); Estimated GFR 43.56 (mL/min/1.73m2); Glucose 127 mg/dL (74-106); Magnesium 1.7 mg/dL (1.8-2.4); Potassium 3.8 mmol/L (3.5-5.1); Sodium 133 mmol/L (136-145); Total Protein 7.3 g/dL (6.4-8.2)
[2024-10-25 16:14] LABS: NT-proBNP 1122 pg/mL (<300); TSH (W/Ref FT4) 3.75 uIU/mL (0.36-3.74); Troponin I 37 ng/L (<or=76)
[2024-10-25 16:17] LABS: Absolute Lymphocyte Count 0.58 10^3/uL (1.2-3.4); Absolute Monocyte Count 1.11 10^3/uL (0.1-0.8); Absolute Neutrophil Count 2.75 10^3/uL (1.2-6.7); Atypical Lymphocytes % 0 %; Bands % 1 %; Diff Comment Manual Differential; RBC Morphology Normal
[2024-10-25] MEDS: Normal Saline - Diluent 50 ML VIAL IJ (16:27)
[2024-10-25 16:33] LABS: COVID-19 PCR Negative (Negative); Influenza A PCR Negative (Negative); Influenza B PCR Negative (Negative); RSV PCR Negative (Negative); Source Nasopharynx
[2024-10-25] MEDS: Omnipaque 350 MG/ML 100 ML BTL 70 ML IJ (16:33)
[2024-10-25 17:26] LABS: Troponin I 39 ng/L (<or=76)
[2024-10-25] MEDS: AZITHROMYCIN 500 MG in Normal Saline 250 ML 250 MG IVPB (17:39)
[2024-10-25] MEDS: MAGNESIUM SULFATE 1 GM/100 ML BAG IV_INF (17:52)
[2024-10-25] MEDS: Ibuprofen 400 MG TAB PO (18:44)
[2024-10-25] MEDS: Acetaminophen 500 MG TAB 1000 MG PO (18:44)
--- NOTE | 2024-10-25 18:55 | W.PM.HP.N ---
Date of service: 10/25/24 Time of Service: 18:56 Assessment and Plan Assessment and plan (1) Pneumonia: Status: Acute Assessment and plan: Pneumonia. Will continue Rocpehin and Zithro and check Legionella urinary antigen. Patient is oxygenating well and hemodynamics stable. I am not convinced there is, or was, a cerebrovascular event here, and perhaps the report of slumping to the left was more a non-specific symptom of the pneumonia, though of course this is not certain, and there may have been an element of TIA. Clinically there is no sign of a stroke. Per Neuro will continue ASA and order MRI. Per prior patient remains DNR History of Present Illness History of Present Illness Chief Complaint: cough, weakness Narrative: 79 male with dementia, seen urgent care today with several days of cough. Urgent Care noted he was leaning to the left and sent him to ER for evaluation of possible stroke. Work up in ER of note for temp to 38.3, white count 4, CXR RUL infiltrate (to my read LLL is more evident). Viral swab triple negative. A possible left pronator drift was reported initially but not later. CTA head and neck showed no brain abnormalities, an old 50% stenosis right ICA. Patient given Rocephin and Zithro. Teleneuro consult obtained, report per ER is that ASA and MRI advised for possible TIA. I was asked to evaluate for admission. Patient admits to having had a cough, says perhaps he doesn't feel quite well but is unable to elaborate. Review of Systems Narrative: per HPI PFSH All Active Problems (Updated 10/25/24 @ 19:05 by Osvaldo Polk MD) Pneumonia (Acute) Lumbar radiculitis (Acute) Lumbar spondylosis (Acute) Lumbar stenosis (Acute) Nocturia (Acute) DJD (degenerative joint disease), lumbar (Acute) Lower back pain (Acute) Urinary urgency (Acute) Urinary frequency (Acute) Urinary incontinence (Acute) Agitation (Acute) Bipolar 1 disorder (Acute) Viral encephalitis (Acute) Left bundle-branch block (Acute) Ventricular ectopy (Acute) Mixed hyperlipidemia (Acute) Atherosclerosis of [place] coronary artery (Acute) Generalized anxiety disorder (Acute) Recurrent major depressive disorder (Chronic) RLS (restless legs syndrome) (Acute) Hearing loss (Acute) Insomnia (Acute) Stable angina (Acute) Hypothyroidism (Chronic 12/11/13) Essential hypertension (Acute) Medical History Right rotator cuff tear Altered mental status (04/10/17) [facility]; NEG MRI Acute pericarditis (~1969) Mental and behavioral problem Impaired fasting glucose Intertrigo Right-sided chest pain Altered mental status History of behavioral and mental health problems Acute hyponatremia Hypomania Surgical History Status post vasectomy History of arthroscopy of knee History of appendectomy Stent placement 09/10/16-[facility] Family History Mother Diabetes Essential hypertension Father Diabetes Neoplasm PROSTATE Sister Diabetes Neoplasm MULTI-MYELOMA Sister Diabetes Essential hypertension Brother Heart disease Grandfather Neoplasm STOMACH Grandfather Ruptured appendix Daughter Substance use disorder Social History Smoking/Tobacco Use Status: Former Tobacco Use tobacco type: cigarettes Smoking risk assessment performed?: Yes Alcohol Intake: former Drug use: Current Sobriety Substance use type: does not use Adopted: No Caregiver/Support person: Yes Household members: caregiver Housing: house Number of Children: 2 number of grandchildren: 4 Communication Needs: Hard of Hearing and Corrective Lenses Education Level: high school Do you need help understanding health information?: Often current occupation: retired Pets and animals: Yes Sexually active: No Do you think of yourself as: straight/heterosexual Current gender identity: male What is your relationship status?: How often do you talk on the phone with friends or family?: three or more times per week How often do you get together with friends or relatives?: once per week How often do you attend anabaptism or uatsdin services?: decline to answer Do you belong to any clubs or organized social groups?: no Panel score (0-1 are the most socially isolated patients): 2 What type of physical activity do you participate in: none and assisted ambulation Frequency: does not exercise Laxmi/Confucianism: Methodist Agree to transfusion: No Seatbelt use: always Drive intox or ride w/intox refrigerated company driver: No Working smoke detector in home: Yes Fire extinguisher in home: Yes Firearms in home: No Do you feel safe at home: Yes Additional Social history: Live with care provider named Skyla Aden in [place]. but lives apart from his . Was on hospice but discharged due to improvement. Was hospitalized for many months in [facility] during 2022. Discharged from that facility last fall. Had a legal guardian in place in addition to his ; now just his . Is able to give brief short accurate history of recent events. Meds Allergies and Home Medications Allergies Allergy/AdvReac Type Severity Reaction Status Date / Time No Known Allergies Allergy Verified 10/25/24 15:24 Home Medications ?Medication ?Instructions ?Recorded ?Confirmed ?Type pramipexole 0.25 mg tablet 0.25 mg PO DAILY #30 tabs 07/24/23 10/25/24 Rx melatonin 5 mg capsule 5 mg PO QHS 10/04/23 10/25/24 History metformin 500 mg tablet 500 mg PO BID 10/04/23 10/25/24 History atorvastatin 20 mg tablet 20 mg PO DAILY 12/18/23 10/25/24 History diaper,brief,adult,disposable #32 ea 07/13/24 10/25/24 Rx (Fitted Briefs Large) divalproex 250 mg tablet,delayed See Rx Instructions .Route 09/19/24 10/25/24 Rx release .COMPLEX #90 tabs lorazepam 0.5 mg tablet See Rx Instructions PO BID PRN 10/04/24 10/25/24 Rx anxiety #60 tabs quetiapine 150 mg tablet 150 mg PO QAM #30 tabs 10/16/24 10/25/24 Rx quetiapine 200 mg tablet 200 mg PO QHS #30 tabs 10/16/24 10/25/24 Rx Exam Narrative Exam Narrative: 160/85, 94, 38.3, 33 (last recorded, 24 during visit), 94% RA during visit. HEENT atraumatic; neck supple; lungs scattered rhonchi; heart RRR; abdomen soft and NT; extremities w/o edema; neuro oriented to name, city (not to place) and year, and knows name of President. PERRL, visual fung full, npo facial asymettry, motor 5/5 throughout with no pronator drift Results Labs 10/25/24 15:35 10/25/24 15:35 Labs: Laboratory Results - last 24 hr 10/25/24 10/25/24 10/25/24 15:35 15:46 16:54 WBC 4.43 RBC 4.41 Hgb 13.2 L Hct 39.2 L MCV 89 MCH 29.9 MCHC 33.7 RDW 13.0 Plt Count 145 MPV 9.6 Immature Gran % 0.0 Neutrophils % 61.0 Band Neutrophils % 1 Lymphocytes % 13.0 Atypical Lymphs % 0 Monocytes % 25.0 Eosinophils % 0.0 Basophils % 0.0 Nucleated RBC % 0.0 Absolute Neutrophils 2.75 Absolute Lymphocytes 0.58 L Absolute Monocytes 1.11 H Absolute Eosinophils 0.00 Absolute Basophils 0.00 RBC Morphology Normal PT 10.7 INR 1.1 APTT 28.1 Sodium 133 L Potassium 3.8 Chloride 95 L Carbon Dioxide 28.8 Anion Gap 9.2 BUN 29 H Creatinine 1.6 H Est GFR (CKD-EPI 2020) 43.56 Glucose 127 H Calcium 8.8 Magnesium 1.7 L Total Bilirubin 0.88 AST 26 ALT 24 Alkaline Phosphatase 78 Troponin I 37 39 NT-Pro-B Natriuret Pep 1122 H Total Protein 7.3 Albumin 3.5 TSH 3.75 H COVID-19 Source Nasopharynx SARS-CoV-2 (PCR) Negative Influenza Type A (PCR) Negative Influenza Type B (PCR) Negative RSV (PCR) Negative Last Vital Signs Temp 38.3 C H 10/25/24 17:40 Pulse 94 H 10/25/24 17:40 Resp 33 H 10/25/24 17:40 BP 160/85 H 10/25/24 17:31 Pulse Ox 91 L 10/25/24 17:40 Time Spent Time spent with Patient: 40-54 minutes Time was spent: preparing to see the patient(eg.review tests), obtaining and/or reviewing separately otained hiistory, ordering medications,tests, procedures, referring, communicating with other health child care counselor and indepentently interpreting results
[2024-10-25] MEDS: cefTRIAXone 2 GM/50 ML BAG IVPB (19:17)
[2024-10-25] MEDS: Aspirin 325 MG TAB PO (19:18)
[2024-10-25 19:44] LABS: Bilirubin Negative (Negative); Blood Trace-intact (Negative); Clarity Clear (Clear); Glucose Negative (Negative); Ketones Trace mg/dL (Negative); Leukocyte Esterase Negative (Negative); Nitrite Negative (Negative); Specific Gravity 1.015 (1.005-1.025); pH 5.5 (5-8)
[2024-10-25 20:00] LABS: WBC 0-2 HPF (0-5)
[2024-10-25 20:01] LABS: Bacteria Negative HPF (Negative); C & S Indicated? No; Casts Negative LPF (Negative); Crystals Negative HPF (Negative); Epithelial Cells Negative HPF (Negative); Mucus Negative (Negative); RBC Negative HPF (0-2)
--- NOTE | 2024-10-25 21:15 | W.PC.ACHO ---
Registration Status: Primary Language: Preferred Language: ED Information & Data Chief Complaint CVA/TIA 10/25/24 15:30 Chief Complaint CVA/TIA 10/25/24 15:26 Triage Note caregiver noticed pt weaker 10/25/24 15:18 than usual this am. he normally in independent with cane and now cannot walk. pt alert and oriented with delayed speech. pt leaning to left side uncontrollably. coughing this am. coughing, chest tightness, this is what brought him to , who sent him here Medical / Surgical History (Last Reviewed 10/25/24 @ 19:02 by Osvaldo Polk MD) Right rotator cuff tear Altered mental status (04/10/17) Acute pericarditis (~1968) Mental and behavioral problem Impaired fasting glucose Intertrigo Right-sided chest pain Altered mental status History of behavioral and mental health problems Acute hyponatremia Hypomania (Last Reviewed 10/25/24 @ 19:02 by Osvaldo Polk MD) Status post vasectomy History of arthroscopy of knee History of appendectomy Stent placement Most Recent Vital Signs Temperature 36.7 C 10/25/24 19:30 Pulse 85 10/25/24 20:42 Pulse 87 10/25/24 20:31 Respiratory Rate 20 10/25/24 20:31 Blood Pressure 120/74 10/25/24 20:31 Blood Pressure Mean 86 10/25/24 20:31 Pulse Oximetry 92 10/25/24 20:42 Oxygen Delivery Method Room Air 10/25/24 15:18 Oxygen Flow Rate 0 10/25/24 15:18 Pain Level 0 10/25/24 15:18 Allergies No Known Allergies Allergy (Verified 10/25/24 15:24) Precautions Isolation Standard precaution 10/25/24 15:30 Active Medications Generic Name Dose Route Start Last Admin Trade Name Freq PRN Reason Stop Dose Admin Iohexol 70 ml 10/25/24 16:45 10/25/24 16:33 Omnipaque 350 Mg/Ml 100 Ml Btl IJ 11/24/24 23:59 70 ml DIRECTED WENDI Administration Sodium Chloride 50 ml 10/25/24 16:30 10/25/24 16:27 Normal Saline - Diluent 50 Ml Vial IJ 50 ml .FOR DI USE WENDI Administration IV IV Catheter Type [Left Forearm Peripheral IV ] IV Catheter Type [Left Peripheral IV Antecubital] IV Catheter Type [Right Peripheral IV Antecubital] IV Catheter Gauge [Left 20 Forearm] IV Catheter Gauge [Left 18 Antecubital] IV Catheter Gauge [Right 18 Antecubital] Diet Orders Category Date Time Status Regular/Normal [DIET] Nutrition 10/26/24 Breakfast Ordered Diagnostics 10/25/24 10/25/24 10/25/24 Range/Units 19:21 16:54 15:46 WBC (4.4-10.8) 10^3/uL RBC (4.36-5.78) 10^6/uL Hgb (13.5-17.5) g/dL Hct (40.0-50.0) % MCV (80-95) fL MCH (27.0-33.0) pg MCHC (32.0-36.0) % RDW (11.8-14.1) % Plt Count (130-400) 10^3/uL MPV (8.0-11.0) fL Immature Gran % % Neutrophils % % Band Neutrophils % % Lymphocytes % % Atypical Lymphs % % Monocytes % % Eosinophils % % Basophils % % Nucleated RBC % (0.0-0.3) % Absolute Neutrophils (1.2-6.7) 10^3/uL Absolute Lymphocytes (1.2-3.4) 10^3/uL Absolute Monocytes (0.1-0.8) 10^3/uL Absolute Eosinophils (0.0-0.7) 10^3/uL Absolute Basophils (0.0-0.2) 10^3/uL RBC Morphology PT (9.1-11.1) sec INR (0.9-1.1) APTT (20.6-30.2) sec Sodium (136-145) mmol/L Potassium (3.5-5.1) mmol/L Chloride (98-107) mmol/L Carbon Dioxide (21.0-32.0) mmol/L Anion Gap (3-11) mmol/L BUN (7-18) mg/dL Creatinine (0.70-1.30) mg/dL Est GFR (CKD-EPI 2020) (mL/min/1.73m2) Glucose (74-106) mg/dL Calcium (8.5-10.1) mg/dL Magnesium (1.8-2.4) mg/dL Total Bilirubin (0.2-1.0) mg/dL AST (15-37) U/L ALT (16-63) U/L Alkaline Phosphatase (46-116) U/L Troponin I 39 (<or=76) ng/L NT-Pro-B Natriuret Pep (<300) pg/mL Total Protein (6.4-8.2) g/dL Albumin (3.4-5.0) g/dL TSH (0.36-3.74) uIU/mL Free T4 Urine Color Yellow (Yellow) Urine Clarity Clear (Clear) Urine pH 5.5 (5-8) Ur Specific [place] 1.015 (1.005-1.025) Urine Protein Trace (Neg-Trace) mg/dL Urine Ketones Trace H (Negative) mg/dL Urine Blood Trace-intact H (Negative) Urine Nitrite Negative (Negative) Urine Bilirubin Negative (Negative) Urine Urobilinogen 1.0 H (Up to 0.2) mg/dL Ur Leukocyte Esterase Negative (Negative) Urine RBC Negative (0-2) HPF Urine WBC 0-2 (0-5) HPF Ur Epithelial Cells Negative (Negative) HPF Urine Crystals Negative (Negative) HPF Urine Bacteria Negative (Negative) HPF Urine Casts Negative (Negative) LPF Urine Mucus Negative (Negative) Ur Culture Indicated? No Urine Glucose Negative (Negative) mg/dL COVID-19 Source Nasopharynx SARS-CoV-2 (PCR) Negative (Negative) Influenza Type A (PCR) Negative (Negative) Influenza Type B (PCR) Negative (Negative) Urine Legionella Ag Pending RSV (PCR) Negative (Negative) 10/25/24 Range/Units 15:35 WBC 4.43 (4.4-10.8) 10^3/uL RBC 4.41 (4.36-5.78) 10^6/uL Hgb 13.2 L (13.5-17.5) g/dL Hct 39.2 L (40.0-50.0) % MCV 89 (80-95) fL MCH 29.9 (27.0-33.0) pg MCHC 33.7 (32.0-36.0) % RDW 13.0 (11.8-14.1) % Plt Count 145 (130-400) 10^3/uL MPV 9.6 (8.0-11.0) fL Immature Gran % 0.0 % Neutrophils % 61.0 % Band Neutrophils % 1 % Lymphocytes % 13.0 % Atypical Lymphs % 0 % Monocytes % 25.0 % Eosinophils % 0.0 % Basophils % 0.0 % Nucleated RBC % 0.0 (0.0-0.3) % Absolute Neutrophils 2.75 (1.2-6.7) 10^3/uL Absolute Lymphocytes 0.58 L (1.2-3.4) 10^3/uL Absolute Monocytes 1.11 H (0.1-0.8) 10^3/uL Absolute Eosinophils 0.00 (0.0-0.7) 10^3/uL Absolute Basophils 0.00 (0.0-0.2) 10^3/uL RBC Morphology Normal PT 10.7 (9.1-11.1) sec INR 1.1 (0.9-1.1) APTT 28.1 (20.6-30.2) sec Sodium 133 L (136-145) mmol/L Potassium 3.8 (3.5-5.1) mmol/L Chloride 95 L (98-107) mmol/L Carbon Dioxide 28.8 (21.0-32.0) mmol/L Anion Gap 9.2 (3-11) mmol/L BUN 29 H (7-18) mg/dL Creatinine 1.6 H (0.70-1.30) mg/dL Est GFR (CKD-EPI 2020) 43.56 (mL/min/1.73m2) Glucose 127 H (74-106) mg/dL Calcium 8.8 (8.5-10.1) mg/dL Magnesium 1.7 L (1.8-2.4) mg/dL Total Bilirubin 0.88 (0.2-1.0) mg/dL AST 26 (15-37) U/L ALT 24 (16-63) U/L Alkaline Phosphatase 78 (46-116) U/L Troponin I 37 (<or=76) ng/L NT-Pro-B Natriuret Pep 1122 H (<300) pg/mL Total Protein 7.3 (6.4-8.2) g/dL Albumin 3.5 (3.4-5.0) g/dL TSH 3.75 H (0.36-3.74) uIU/mL Free T4 Pending Urine Color (Yellow) Urine Clarity (Clear) Urine pH (5-8) Ur Specific [place] (1.005-1.025) Urine Protein (Neg-Trace) mg/dL Urine Ketones (Negative) mg/dL Urine Blood (Negative) Urine Nitrite (Negative) Urine Bilirubin (Negative) Urine Urobilinogen (Up to 0.2) mg/dL Ur Leukocyte Esterase (Negative) Urine RBC (0-2) HPF Urine WBC (0-5) HPF Ur Epithelial Cells (Negative) HPF Urine Crystals (Negative) HPF Urine Bacteria (Negative) HPF Urine Casts (Negative) LPF Urine Mucus (Negative) Ur Culture Indicated? Urine Glucose (Negative) mg/dL COVID-19 Source SARS-CoV-2 (PCR) (Negative) Influenza Type A (PCR) (Negative) Influenza Type B (PCR) (Negative) Urine Legionella Ag RSV (PCR) (Negative) Anxcz-[id number] Documentation Fingerstick Glucose Start: 10/25/24 15:32 Freq: .Stat Status: Active Protocol: Activity Type Activity Date Activity User E-sign Co-sign Detail Recorded Client Recorded Date Recorded By Document 10/25/24 15:46 BKG DAEMON(10) [id number] 10/25/24 15:50 BKG DAEMON(10) Intake and Output - 24 Hour Total 10/25/24 15:12 thru 10/25/24 19:48 Intake Total 400 Balance 400 Weight 65 kg Intake: IV 400 Falls Risk Assessment History of Falls Previous History 10/25/24 15:30 Contributing Factors Impairments 10/25/24 15:30 Ambulatory Aids Uses ambulatory device 10/25/24 15:30 Tubes/Lines With any additional score 10/25/24 15:30 Gait Evaluation W/any additional score 10/25/24 15:30 Cognition No cognitive impairment 10/25/24 15:30 Fall Total Score 73 10/25/24 15:30 Level of Risk High Risk 10/25/24 15:30 Problems (Last Reviewed 10/25/24 @ 19:02 by Osvaldo oPlk MD) Pneumonia (Acute) v v v v v v v v v Sending and/or Receiving Nurses: Please use comment section below to note any information pertinent to the patient hand-off not included above. Information / Comments: Report received from: received report from PARRISH Salas in the ER. Patient alert oriented to person and place. patient seen in urgent care today because patient was leaning to the left. patient was sent to the ER from urgent care. Stroke R/O, negative for stroke, but question TIA. teleneuro consult done in the ER with [facility]. [facility] recommended MRI and start patient on Aspirin which was given in the ER, MRI to be done /. Patient noted to hava non-productive cough. Patient is also noted be on palliative care in the long-term that he lives in. Patient dx of PNA, started on ABX. code status is DNR/DNI. patient admitted to hospital service per [facility] Teleneuro recommendation. OFFICER CAPTAIN to bring patient to the floor after report.
[2024-10-25] MEDS: Melatonin 3 MG TAB 6 MG PO (21:46)
[2024-10-25] MEDS: Divalproex 250 MG TABEC PO (21:46)
[2024-10-25] MEDS: QUEtiapine 100 MG TAB 200 MG PO (21:47)
[2024-10-26 08:15] VITALS: BP 135/73; PULSE 77; RESP 17; TEMP 36.6; O2SAT 96
[2024-10-26] MEDS: Atorvastatin 20 MG TAB PO (09:02)
[2024-10-26] MEDS: Pramipexole 0.25 MG TAB PO (09:03)
[2024-10-26] MEDS: QUEtiapine 100 MG TAB 150 MG PO (09:03)
[2024-10-26] MEDS: Divalproex 250 MG TABEC PO ×3 (09:05→20:10)
[2024-10-26] MEDS: Aspirin 325 MG TAB PO (09:05)
--- NOTE | 2024-10-26 09:21 | PDOC.CMIN ---
Date of service: 10/26/24 Time of Service: 09:45 Care Management Initial Assmt Initial Assessment Reason for Hospitalization: pneumonia Functional Status/Living Situation Patient Presentation: Joseph was sitting up on the edge of his bed when CM met with him. He stated that he is feeling good today, and that per report, he may be ready for discharge tomorrow, if he continues to feel better. He stated that he lives in [place] with his nursing home administrator caregiver, Skyla. His , Beatriz, is his guardian, and lives in [place]. He stated that his visits him weekly, usually, but she is out of town currently. Per report, he is on IV antibiotics currently to treat pneumonia. CM will continue to follow. Town of Residence: [place] Resides with: Other (Caregiver; [facility] home) Caregiver/Guardian: Caregiver, Skylaeber Aden Guardian, Beatriz Cardoso Employment Status: Retired Instrumental Activities of Daily Living (ADLs): Requires support Medications Medication Management: No Issues/Barriers identified (Has support with medications from caregiver) Physical Functioning/Mobility Assistive Device: Per report, 3 wheeled walker Advance Directives Advance Directives: Do you have an Advance Directive: Y 09/15/23 08:57 AD On File at [facility]: Y 09/15/23 08:57 Date Asked 10/25/24 10/25/24 16:23 AD Date Reviewed 11/08/23 11/25/23 10:48 COLST On File at [facility] No 09/15/23 08:57 COLST Date Scanned Code Status Resuscitation Status DNR/DNI Insurance Coverage/Financial Issues Insurance: [facility] supplement Care Team Visit Care Team Role Provider Type Kevin Rosales NP Primary Care Provider NURSE PRACTITIONER RIZWAN Lane Emergency Provider [facility] COORDINATOR Osvaldo Polk MD Admit Provider [facility] STAFF PHYSICIAN Attending Provider Discharge Potential Discharge Needs: PCP F/U Appt Anticipated Barriers to Discharge: None Identified Patient/Family Education Needs: Review discharge instructions, discuss Ask Me Three Transportation: Private vehicle Plan: Anticipate Joseph will return to his caregiver's home with no new services. His caregiver will transport him via private vehicle. He will follow up with his PCP and discharge plan of care. CM will continue to follow. Social Determinants of Health Screening Will the Patient Participate in the Screening?: Unable to obtain Do you worry about having a steady place to live?: no Problems where you live: no known problems In the past 12 months, have you had to go without electric, gas, oil or water in your home?: choose not to answer Have you or anyone in your house had to go without enough food to eat?: choose not to answer Has lack of transportation kept you from medical appointments or from doing things needed for daily living?: choose not to answer Has anyone in your life made you feel unsafe or unsupported?: choose not to answer How often do you feel lonely or isolated from those around you?: Never Do you speak a language other than Serbian at home?: Yes Does the patient want assistance with any of the above?: No Health Related Social Needs Health related social needs: material hardship(utilities) (Z59.12) and education (Z55.6) PFSH All Active Problems (Updated 10/26/24 @ 16:42 by Zo Elmore NP) Palliative care patient (Acute) DVT prophylaxis (Acute) Hypomagnesemia (Acute) Acute kidney injury (Acute) Toxic metabolic encephalopathy (Acute) Pneumonia (Acute) Transient ischemic attack (Acute) Pneumonia (Acute) Lumbar radiculitis (Acute) Lumbar spondylosis (Acute) Lumbar stenosis (Acute) Nocturia (Acute) DJD (degenerative joint disease), lumbar (Acute) Lower back pain (Acute) Urinary urgency (Acute) Urinary frequency (Acute) Urinary incontinence (Acute) Agitation (Acute) Bipolar 1 disorder (Acute) Viral encephalitis (Acute) Left bundle-branch block (Acute) Ventricular ectopy (Acute) Mixed hyperlipidemia (Chronic) Atherosclerosis of [place] coronary artery (Acute) Generalized anxiety disorder (Chronic) Recurrent major depressive disorder (Chronic) RLS (restless legs syndrome) (Acute) Hearing loss (Acute) Insomnia (Acute) Stable angina (Acute) Hypothyroidism (Chronic 12/11/13) Essential hypertension (Acute) Medical History (Updated 10/26/24 @ 16:42 by Zo Elmore NP) Cerebellar cerebrovascular accident without late effect Right rotator cuff tear Altered mental status (04/10/17) [facility]; NEG MRI Acute pericarditis (~1969) Mental and behavioral problem Impaired fasting glucose Intertrigo Right-sided chest pain Altered mental status History of behavioral and mental health problems Acute hyponatremia Hypomania Surgical History Status post vasectomy History of arthroscopy of knee History of appendectomy Stent placement 09/10/16-[facility] Family History Mother Diabetes Essential hypertension Father Diabetes Neoplasm PROSTATE Sister Diabetes Neoplasm MULTI-MYELOMA Sister Diabetes Essential hypertension Brother Heart disease Grandfather Neoplasm STOMACH Grandfather Ruptured appendix Daughter Substance use disorder Social History Smoking/Tobacco Use Status: Former Tobacco Use tobacco type: cigarettes Smoking risk assessment performed?: Yes Alcohol Intake: former Drug use: Current Sobriety Substance use type: does not use Adopted: No Caregiver/Support person: Yes Household members: caregiver Housing: other Number of Children: 2 number of grandchildren: 4 Communication Needs: Hard of Hearing and Corrective Lenses Education Level: high school Do you need help understanding health information?: Often current occupation: retired Pets and animals: Yes Sexually active: No Do you think of yourself as: straight/heterosexual Current gender identity: male What is your relationship status?: How often do you talk on the phone with friends or family?: three or more times per week How often do you get together with friends or relatives?: once per week How often do you attend religion or confucianism services?: decline to answer Do you belong to any clubs or organized social groups?: no Panel score (0-1 are the most socially isolated patients): 2 What type of physical activity do you participate in: none and assisted ambulation Frequency: does not exercise Laxmi/Sabianism: Church Agree to transfusion: No Seatbelt use: always Drive intox or ride w/intox limo driver: No Working smoke detector in home: Yes Fire extinguisher in home: Yes Firearms in home: No Do you feel safe at home: Yes Additional Social history: Live with care provider named Skyla Aden in [place]. but lives apart from his . Was on hospice but discharged due to improvement. Was hospitalized for many months in [facility] during 2022. Discharged from that facility last fall. Had a legal guardian in place in addition to his ; now just his . Is able to give brief short accurate history of recent events.
--- NOTE | 2024-10-26 09:49 | W.PM.PROGNOT ---
Date of Service Date of service: 10/26/24 Time of Service: 09:52 Assessment and Plan Assessment and plan (1) Pneumonia: Status: Acute Assessment and plan: Pneumonia. Will continue Rocpehin and Zithro and check Legionella urinary antigen. Patient is oxygenating well and hemodynamics stable. I am not convinced there is, or was, a cerebrovascular event here, and perhaps the report of slumping to the left was more a non-specific symptom of the pneumonia, though of course this is not certain, and there may have been an element of TIA. Clinically there is no sign of a stroke. Per Neuro will continue ASA and order MRI. Per prior patient remains DNR Objective Last Vital Signs Temp 36.6 C 10/26/24 08:15 Pulse 77 10/26/24 08:15 Resp 17 10/26/24 08:15 BP 135/73 10/26/24 08:15 Pulse Ox 96 10/26/24 08:15 Laboratory Results - last 24 hr 10/25/24 10/25/24 10/25/24 15:35 15:46 16:54 WBC 4.43 RBC 4.41 Hgb 13.2 L Hct 39.2 L MCV 89 MCH 29.9 MCHC 33.7 RDW 13.0 Plt Count 145 MPV 9.6 Immature Gran % 0.0 Neutrophils % 61.0 Band Neutrophils % 1 Lymphocytes % 13.0 Atypical Lymphs % 0 Monocytes % 25.0 Eosinophils % 0.0 Basophils % 0.0 Nucleated RBC % 0.0 Absolute Neutrophils 2.75 Absolute Lymphocytes 0.58 L Absolute Monocytes 1.11 H Absolute Eosinophils 0.00 Absolute Basophils 0.00 RBC Morphology Normal PT 10.7 INR 1.1 APTT 28.1 Sodium 133 L Potassium 3.8 Chloride 95 L Carbon Dioxide 28.8 Anion Gap 9.2 BUN 29 H Creatinine 1.6 H Est GFR (CKD-EPI 2020) 43.56 Glucose 127 H Calcium 8.8 Magnesium 1.7 L Total Bilirubin 0.88 AST 26 ALT 24 Alkaline Phosphatase 78 Troponin I 37 39 NT-Pro-B Natriuret Pep 1122 H Total Protein 7.3 Albumin 3.5 TSH 3.75 H Urine Color Urine Clarity Urine pH Ur Specific [place] Urine Protein Urine Ketones Urine Blood Urine Nitrite Urine Bilirubin Urine Urobilinogen Ur Leukocyte Esterase Urine RBC Urine WBC Ur Epithelial Cells Urine Crystals Urine Bacteria Urine Casts Urine Mucus Ur Culture Indicated? Urine Glucose COVID-19 Source Nasopharynx SARS-CoV-2 (PCR) Negative Influenza Type A (PCR) Negative Influenza Type B (PCR) Negative RSV (PCR) Negative 10/25/24 19:21 WBC RBC Hgb Hct MCV MCH MCHC RDW Plt Count MPV Immature Gran % Neutrophils % Band Neutrophils % Lymphocytes % Atypical Lymphs % Monocytes % Eosinophils % Basophils % Nucleated RBC % Absolute Neutrophils Absolute Lymphocytes Absolute Monocytes Absolute Eosinophils Absolute Basophils RBC Morphology PT INR APTT Sodium Potassium Chloride Carbon Dioxide Anion Gap BUN Creatinine Est GFR (CKD-EPI 2020) Glucose Calcium Magnesium Total Bilirubin AST ALT Alkaline Phosphatase Troponin I NT-Pro-B Natriuret Pep Total Protein Albumin TSH Urine Color Yellow Urine Clarity Clear Urine pH 5.5 Ur Specific [place] 1.015 Urine Protein Trace Urine Ketones Trace H Urine Blood Trace-intact H Urine Nitrite Negative Urine Bilirubin Negative Urine Urobilinogen 1.0 H Ur Leukocyte Esterase Negative Urine RBC Negative Urine WBC 0-2 Ur Epithelial Cells Negative Urine Crystals Negative Urine Bacteria Negative Urine Casts Negative Urine Mucus Negative Ur Culture Indicated? No Urine Glucose Negative COVID-19 Source SARS-CoV-2 (PCR) Influenza Type A (PCR) Influenza Type B (PCR) RSV (PCR)
[2024-10-26 10:33] VITALS: BP 132/72; PULSE 75; RESP 16; TEMP 36.6; O2SAT 96
--- NOTE | 2024-10-26 11:50 | DI.MRI_ITS ---
Exam(s) MR BRAIN WO EXAM: MR BRAIN WO CLINICAL HISTORY: possible TIA TECHNIQUE: Multiplanar multisequence MRI of the brain was performed. COMPARISON: MR MR_HEAD WO/CONTRAST from 04/10/[address] scan 12/18/2023. FINDINGS: CEREBRAL PARENCHYMA: There is no evidence of intracranial hemorrhage, mass effect, or shift of midline structures. There are no extra-axial fluid collections. Ventricles are not enlarged or shifted. 12 small foci of signal abnormality in the left cerebellar hemisphere consistent with prior small lac unar infarct. There is no restricted diffusion at these levels nor elsewhere in the cerebellar hemis pheres. There is no abnormal signal in the reza and midbrain nor in the thalami. However, there is abundant bilateral relatively symmetrical periventricular signal abnormality consis tent with chronic small vessel disease. No evidence of hemorrhage nor restricted diffusion at these levels to suggest acute or subacute ischemic event. PITUITARY GLAND: No mass nor parasellar abnormality. No obvious abnormality in the cavernous sinuses. FLOW VOIDS: The expected flow void are noted. No evidence of obvious aneurysm nor obvious vascular ma lformation. PARANASAL SINUSES: Mucosal thickening and small amount of fluid noted in both maxillary sinuses and s ome mucosal thickening in bilateral ethmoidal air cells. Also in the sphenoid sinuses. Frontal sinu ses unremarkable. There are no mastoid effusions. ORBITS: No obvious findings. IMPRESSION: There is abundant bilateral periventricular signal abnormality consistent with chronic small vessel d isease and there also 2 small nonacute lacunar infarcts in the left cerebellar hemisphere. There is no evidence of acute infarct or hemorrhage. Mucosal thickening and small amount of fluid noted in both maxillary sinuses. DATA REPOSITORY:
--- NOTE | 2024-10-26 12:40 | W.NUTRFU ---
Date of service: 10/26/24 Time of Service: 12:40 Nutrition Note NOTE: 79yo patient being treated for PNA - hx of dementia. PT not a good historian as per diet. Ordered for regular diet - pt with last A1c of 5.9% in December 2023 was up to 7.6% 1 year ago. Home meds inculde metformin BID. fasting glucose 127 yesterday. Total protein and albumin labs wnl yesterday. Weight hx reveals 7kg weight loss since February last summer. Will offer glucose control boost for additional nutrition and source of easy to drink kcals and protein. Will monitor glucose/nutrition-related labs, weight and po intake. Time Spent in Nutritional Counseling and Treatment: 5 minutes
[2024-10-26 14:50] VITALS: BP 136/75; PULSE 74; RESP 17; TEMP 36.5; O2SAT 97
[2024-10-26 15:20] VITALS: BP 109/67; PULSE 72; RESP 19; TEMP 36.7; O2SAT 92
--- NOTE | 2024-10-26 16:17 | PCNE_ITS ---
Date of service: 10/26/24 Time of Service: 16:19 History of Present Illness Narrative: Joseph was seen in his hospital room for continuity of care. He is being treated for PNA. He is beginning to feel better. He is still coughing. He denies SOB. He reports that he is eating well. He is enjoying the food at the hospital. He reports he is doing well getting around. He feels fatigued. He is sleeping a lot. He denies pain. His , Beatriz is his guardian. He has not talked to her since he has been in the hospital. Beatriz is away for a wedding right now. He became tearful during the visit. He states he wishes Beatriz would call him sometimes, he feels he always has to call her. He has shared this with her but she does not usually call him. Assessment and Plan Assessment and plan (1) Pneumonia: Status: Acute (2) Palliative care patient: Status: Acute Review of Systems Narrative: Per HPI PFSH All Active Problems (Updated 10/26/24 @ 16:42 by Zo Elmore NP) Palliative care patient (Acute) DVT prophylaxis (Acute) Hypomagnesemia (Acute) Acute kidney injury (Acute) Toxic metabolic encephalopathy (Acute) Pneumonia (Acute) Transient ischemic attack (Acute) Pneumonia (Acute) Lumbar radiculitis (Acute) Lumbar spondylosis (Acute) Lumbar stenosis (Acute) Nocturia (Acute) DJD (degenerative joint disease), lumbar (Acute) Lower back pain (Acute) Urinary urgency (Acute) Urinary frequency (Acute) Urinary incontinence (Acute) Agitation (Acute) Bipolar 1 disorder (Acute) Viral encephalitis (Acute) Left bundle-branch block (Acute) Ventricular ectopy (Acute) Mixed hyperlipidemia (Chronic) Atherosclerosis of [place] coronary artery (Acute) Generalized anxiety disorder (Chronic) Recurrent major depressive disorder (Chronic) RLS (restless legs syndrome) (Acute) Hearing loss (Acute) Insomnia (Acute) Stable angina (Acute) Hypothyroidism (Chronic 12/11/13) Essential hypertension (Acute) Medical History (Updated 10/26/24 @ 16:42 by Zo Elmore NP) Cerebellar cerebrovascular accident without late effect Right rotator cuff tear Altered mental status (04/10/17) [facility]; NEG MRI Acute pericarditis (~1968) Mental and behavioral problem Impaired fasting glucose Intertrigo Right-sided chest pain Altered mental status History of behavioral and mental health problems Acute hyponatremia Hypomania Surgical History Status post vasectomy History of arthroscopy of knee History of appendectomy Stent placement 09/10/16-[facility] Family History Mother Diabetes Essential hypertension Father Diabetes Neoplasm PROSTATE Sister Diabetes Neoplasm MULTI-MYELOMA Sister Diabetes Essential hypertension Brother Heart disease Grandfather Neoplasm STOMACH Grandfather Ruptured appendix Daughter Substance use disorder Social History Smoking/Tobacco Use Status: Former Tobacco Use tobacco type: cigarettes Smoking risk assessment performed?: Yes Alcohol Intake: former Drug use: Current Sobriety Substance use type: does not use Adopted: No Caregiver/Support person: Yes Household members: caregiver Housing: other Number of Children: 2 number of grandchildren: 4 Communication Needs: Hard of Hearing and Corrective Lenses Education Level: high school Do you need help understanding health information?: Often current occupation: retired Pets and animals: Yes Sexually active: No Do you think of yourself as: straight/heterosexual Current gender identity: male What is your relationship status?: How often do you talk on the phone with friends or family?: three or more times per week How often do you get together with friends or relatives?: once per week How often do you attend mandaen or muslim services?: decline to answer Do you belong to any clubs or organized social groups?: no Panel score (0-1 are the most socially isolated patients): 2 What type of physical activity do you participate in: none and assisted ambulation Frequency: does not exercise Laxmi/Yarsanism: Mormonism Agree to transfusion: No Seatbelt use: always Drive intox or ride w/intox shag truck driver: No Working smoke detector in home: Yes Fire extinguisher in home: Yes Firearms in home: No Do you feel safe at home: Yes Additional Social history: Live with care provider named Skyla Aden in [place]. but lives apart from his . Was on hospice but discharged due to improvement. Was hospitalized for many months in [facility] during [facility]22. Discharged from that facility last fall. Had a legal guardian in place in addition to his ; now just his . Is able to give brief short accurate history of recent events. Exam Narrative Exam Narrative: General: very pleasant, older man, laying in the hospital bed. He appears fatigued. He is alert and oriented. He is tearful at times. HEENT: normocephalic, atraumatic, EOMI, mmm Neck: supple respiratory: respirations appear even and unlabored while laying in bed. Occasional congested cough noted. Ext: moves all 4 extremities freely, no edema Results Last Vital Signs Temp 36.7 C 10/26/24 15:20 Pulse 72 10/26/24 15:20 Resp 19 10/26/24 15:20 BP 109/67 10/26/24 15:20 Pulse Ox 92 10/26/24 15:20 Labs 10/25/24 15:35 10/27/24 06:23 Labs: Laboratory Results - last 24 hr 10/25/24 10/25/24 10/25/24 15:35 15:46 16:54 WBC 4.43 RBC 4.41 Hgb 13.2 L Hct 39.2 L MCV 89 MCH 29.9 MCHC 33.7 RDW 13.0 Plt Count 145 MPV 9.6 Immature Gran % 0.0 Neutrophils % 61.0 Band Neutrophils % 1 Lymphocytes % 13.0 Atypical Lymphs % 0 Monocytes % 25.0 Eosinophils % 0.0 Basophils % 0.0 Nucleated RBC % 0.0 Absolute Neutrophils 2.75 Absolute Lymphocytes 0.58 L Absolute Monocytes 1.11 H Absolute Eosinophils 0.00 Absolute Basophils 0.00 RBC Morphology Normal Troponin I 39 Urine Color Urine Clarity Urine pH Ur Specific [place] Urine Protein Urine Ketones Urine Blood Urine Nitrite Urine Bilirubin Urine Urobilinogen Ur Leukocyte Esterase Urine RBC Urine WBC Ur Epithelial Cells Urine Crystals Urine Bacteria Urine Casts Urine Mucus Ur Culture Indicated? Urine Glucose COVID-19 Source Nasopharynx SARS-CoV-2 (PCR) Negative Influenza Type A (PCR) Negative Influenza Type B (PCR) Negative RSV (PCR) Negative 10/25/24 19:21 WBC RBC Hgb Hct MCV MCH MCHC RDW Plt Count MPV Immature Gran % Neutrophils % Band Neutrophils % Lymphocytes % Atypical Lymphs % Monocytes % Eosinophils % Basophils % Nucleated RBC % Absolute Neutrophils Absolute Lymphocytes Absolute Monocytes Absolute Eosinophils Absolute Basophils RBC Morphology Troponin I Urine Color Yellow Urine Clarity Clear Urine pH 5.5 Ur Specific [place] 1.015 Urine Protein Trace Urine Ketones Trace H Urine Blood Trace-intact H Urine Nitrite Negative Urine Bilirubin Negative Urine Urobilinogen 1.0 H Ur Leukocyte Esterase Negative Urine RBC Negative Urine WBC 0-2 Ur Epithelial Cells Negative Urine Crystals Negative Urine Bacteria Negative Urine Casts Negative Urine Mucus Negative Ur Culture Indicated? No Urine Glucose Negative COVID-19 Source SARS-CoV-2 (PCR) Influenza Type A (PCR) Influenza Type B (PCR) RSV (PCR) Time Spent Time Spent with Patient Time Spent(min): 45
--- NOTE | 2024-10-26 16:22 | W.PM.PROGNOT ---
Date of Service Date of service: 10/26/24 Time of Service: 16:23 Assessment and Plan Assessment and plan (1) Pneumonia: Status: Acute Assessment and plan: Improving with Ceftriaxone and azithro -check Legionella urinary antigen, still pending -Patient is oxygenating well and hemodynamics stable. (2) Toxic metabolic encephalopathy: Status: Acute Assessment and plan: He never had focal neurologic findings. MRI showing nothing acute but did show old cerebellar stroke. 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 He denies chronic balance issues. His LDL is <70 on atorvastatin, h/o CAD. Continue this and ASA. (4) Acute kidney injury: Status: Acute Assessment and plan: A/w pneumonia, hydrate gently IV and po, follow in AM. (5) Hypomagnesemia: Status: Acute Assessment and plan: replaced, follow (6) Hyponatremia: Status: Inactive Assessment and plan: a/w acute pneumonia, mild dehydration. follow. (7) DVT prophylaxis: Status: Acute Assessment and plan: enoxaparin Subjective Subjective Patient reports: no new complaints, tolerating liquids well and tolerating a regular diet; denies nausea, vomiting or fever Interval history since last seen: He is feeling better. He doesn't remember everything about what happened last night. His breathing is better, still some cough. Exam Narrative Exam Narrative: GEN: alert and oriented, NAD. HEENT atraumatic; neck supple; lungs scattered rhonchi; heart RRR; abdomen soft and NT; extremities with trace edema; neuro oriented to name, place, and year, wrong month (September) PERRL, EOMI, CN 2-12 intact other than poor healing. motor 5/5 throughout, DTRs 1+ and symmetric. Objective Last Vital Signs Temp 36.7 C 10/26/24 15:20 Pulse 72 10/26/24 15:20 Resp 19 10/26/24 15:20 BP 109/67 10/26/24 15:20 Pulse Ox 92 10/26/24 15:20 Laboratory Results - last 24 hr 10/25/24 10/25/24 10/25/24 15:46 16:54 19:21 Troponin I 39 Urine Color Yellow Urine Clarity Clear Urine pH 5.5 Ur Specific [place] 1.015 Urine Protein Trace Urine Ketones Trace H Urine Blood Trace-intact H Urine Nitrite Negative Urine Bilirubin Negative Urine Urobilinogen 1.0 H Ur Leukocyte Esterase Negative Urine RBC Negative Urine WBC 0-2 Ur Epithelial Cells Negative Urine Crystals Negative Urine Bacteria Negative Urine Casts Negative Urine Mucus Negative Ur Culture Indicated? No Urine Glucose Negative COVID-19 Source Nasopharynx SARS-CoV-2 (PCR) Negative Influenza Type A (PCR) Negative Influenza Type B (PCR) Negative RSV (PCR) Negative Time Spent with Patient Time Spent with Patient: 25-34 minutes Time was spent: preparing to see the patient(eg.review tests), obtaining and/or reviewing separately otained hiistory, ordering medications,tests, procedures, referring, communicating with other health career and technology education teacher, indepentently interpreting results, counseling the patient and care coordination
[2024-10-26] MEDS: Normal Saline 1,000 ML 150 ML IV (16:50)
[2024-10-26 17:37] LABS: T4, Free 1.1 ng/dL (0.8-2.2)
[2024-10-26] MEDS: cefTRIAXone 1 GM/50 ML BAG IVPB (17:42)
[2024-10-26] MEDS: Enoxaparin 40 MG/0.4 ML SYR SC (17:47)
[2024-10-26 19:13] VITALS: BP 128/73; PULSE 75; RESP 18; TEMP 36.7; O2SAT 94
[2024-10-26 19:30] LABS: Legionella Ag Detection Urine Negative (Negative)
[2024-10-26] MEDS: Melatonin 3 MG TAB 6 MG PO (20:10)
[2024-10-26] MEDS: QUEtiapine 100 MG TAB 200 MG PO (20:10)
[2024-10-26] MEDS: AZITHROMYCIN 250 MG in Normal Saline 250 ML IVPB (20:13)
[2024-10-27 06:41] LABS: Anion Gap 6.8 mmol/L (3-11); BUN 22 mg/dL (7-18); CO2 28.2 mmol/L (21.0-32.0); Calcium 8.1 mg/dL (8.5-10.1); Chloride 102 mmol/L (98-107); Estimated GFR 76.56 (mL/min/1.73m2); Glucose 98 mg/dL (74-106); Magnesium 1.9 mg/dL; Potassium 3.9 mmol/L (3.5-5.1); Sodium 137 mmol/L (136-145)
[2024-10-27 07:26] VITALS: BP 139/75; PULSE 66; RESP 18; TEMP 36.5; O2SAT 92
[2024-10-27] MEDS: LORazepam 0.5 MG TAB PO (08:25)
[2024-10-27] MEDS: Atorvastatin 20 MG TAB PO (08:26)
[2024-10-27] MEDS: Divalproex 250 MG TABEC PO ×3 (08:26→20:26)
[2024-10-27] MEDS: Acetaminophen 325 MG TAB 650 MG PO (08:26)
[2024-10-27] MEDS: QUEtiapine 100 MG TAB 150 MG PO (08:27)
[2024-10-27] MEDS: Pramipexole 0.25 MG TAB PO (08:27)
[2024-10-27] MEDS: Aspirin E.C. 81 MG TABEC PO (08:27)
--- NOTE | 2024-10-27 11:33 | IN_ITS ---
PT Notes Visit Reasons: pneumonia, possible tia Physical Therapy Inpatient Initial Evaluation Date: 10/27/2024 Referring Doctor: Joseph Paris MD PT Orders: PT CONSULT: Safety Consult fro D/C. admitted weakness a/w pneumonia. stroke work up negative for acute stroke Precautions: Fall. Standard. Activity as tolerated. Patient Profile/Admitting Diagnosis: Joseph is a 79-year-old male patient admitted n 10/25/2024 due to increased leaning to L, unstaedy gait, and slowed response. Patient was admitted for continues assessment for CVA, PNA, toxic metabollic encephalpathy, KERVIN, hypomagnesemia, and hyponatremia. PMHX: All Active Problems (Updated 10/25/24 @ 19:05 by Osvaldo Polk MD) Pneumonia (Acute) Lumbar radiculitis (Acute) Lumbar spondylosis (Acute) Lumbar stenosis (Acute) Nocturia (Acute) DJD (degenerative joint disease), lumbar (Acute) Lower back pain (Acute) Urinary urgency (Acute) Urinary frequency (Acute) Urinary incontinence (Acute) Agitation (Acute) Bipolar 1 disorder (Acute) Viral encephalitis (Acute) Left bundle-branch block (Acute) Ventricular ectopy (Acute) Mixed hyperlipidemia (Acute) Atherosclerosis of [place] coronary artery (Acute) Generalized anxiety disorder (Acute) Recurrent major depressive disorder (Chronic) RLS (restless legs syndrome) (Acute) Hearing loss (Acute) Insomnia (Acute) Stable angina (Acute) Hypothyroidism (Chronic 12/11/13) Essential hypertension (Acute) Medical History Right rotator cuff tear Altered mental status (04/10/17) [facility]; NEG MRI Acute pericarditis (~1969) Mental and behavioral problem Impaired fasting glucose Intertrigo Right-sided chest pain Altered mental status History of behavioral and mental health problems Acute hyponatremia Hypomania Surgical History Status post vasectomy History of arthroscopy of knee History of appendectomy Stent placement 09/10/16-[facility] Social History/Home Situation: Lives with 24/7 caregiver. Independent with all mobility ADL performance in home setting. Equipment Owned/DME: None Subjective: Agreeable to walking in hallway. Denied headache, chest pain, and lightheadedness throughout session. Objective: General Observation: Resting in bed. No lines. Mental Status: Alert and oriented as to person, place, and purpose. Able to pay attention, focus, and respond appropriately. Pain: None reported Vital Signs: Closely monitored by nursing staff ROM: Right Upper Extremity: Shoulder Flexion WFL. Shoulder abduction WFL. Elbow flexion WFL. Wrist flexion WFL. Functional opening and closing of hand WFL. Left Upper Extremity: Shoulder Flexion WFL. Shoulder abduction WFL. Elbow flexion WFL. Wrist flexion WFL. Functional opening and closing of hand WFL. Right Lower Extremity: Hip flexion WFL. Hip abduction WFL. Knee flexion WFL. Ankle dorsiflexion WFL. Ankle plantarflexion WFL. Left Lower Extremity: Hip flexion WFL. Hip abduction WFL. Knee flexion WFL. Ankle dorsiflexion WFL. Ankle plantarflexion WFL. Strength: Right Upper Extremity: Shoulder flexors 4/5. Shoulder abductors 4/5. Elbow flexors 5/5. Elbow extensors 5/5. Staple Processing Machine Operator strong. Left Upper Extremity: Shoulder flexors 4/5. Shoulder abductors 4/5. Elbow flexors 5/5. Elbow extensors 5/5. Staple Processing Machine Operator strong. Right Lower Extremity: Hip flexors 4/5. Hip abductors 5/5. Knee flexors 4/5. Knee extensors 4/5. Ankle dorsiflexors 5/5. Ankle plantarflexors 5/5. Left Lower Extremity: Hip flexors 4/5. Hip abductors 5/5. Knee flexors 4/5. Knee extensors 4/5. Ankle dorsiflexors 5/5. Ankle plantarflexors 5/5. Bed Mobility/Transfers: Rolling independent Supine to sit independent Sit to supine independent Sit to stand independent Stand to sit independent Bed to toilet seat supervision Toilet seat to bed supervision Bed to reclining chair supervisin Reclining chair to bed supervision Gait: 250 feet without an assistive device. Supervision only for directions. Denied headache, chest pain, and lightheadedness throughout session. Balance: Static Sitting: Normal Dynamic Sitting: Normal Static Standing: Normal Dynamic Standing: Good Special Tests: Mobility Limitations Standardized Measure [facility] AM-PAC 6 clicks Basic Mobility Inpatient Short Form: Raw Score: 24 CMS Score: 0% deficit 4-stage Balance Test: Feet together 10 seconds Semi tandem 10 seconds Full tandem 6 seconds One-legged stance 3 seconds 30-second chair rise score: x 15 Informed Consent/Education: Patient was instructed in purpose of PT consult. Assessment: Mild pronator drift on L but strength to B UE/LE symmetric. Patient presents with clinical signs and symptoms consistent with current/admitting diagnoses that have resulted to mobility limitations, gait instability, generalized weakness, and overall ADL decline as demonstrated by the following impairment level findings: 1. Impaired balance 2. Impaired safety awareness Impairments are contributing to the following functional limitations: 1. Increased completion time for mobility ADL performance 2. Need for supervision at all times due to impaired safety awareness Patient is assessed as a 22020 low complexity based on the following: History: 79-year-old male with past medical history as indicated above Examination: As above Presentation: As above Decision Making: As above Goals: Goals X1 week PT evaluation and one treatment session only for functional mobility training. Plan of Care/Treatment Plan: PT evaluation and one treatment session only for functional mobility training. DISCHARGE RECOMMENDATIONS: [X] Home with no services. Return to previous home setting with /7 care. [] Home with services [specify] [] Home with outpatient PT [] [] SNF for continued rehabilitation [] [] Group Home Care [] [] SNF versus LTC based on ability to participate and progress [] TREATMENT CODE/TIME: 30953 x 20 minutes for 1 unit, 64540 x 27 minutes for 2 units (10:38-11:25). Thank you for the opportunity to participate in the care of this patient. Vijaya Prince PT, DPT, CLT [facility] [place], [place]
[2024-10-27 11:36] VITALS: BP 131/71; PULSE 69; RESP 18; TEMP 36.5; O2SAT 94
--- NOTE | 2024-10-27 11:38 | CHAPLAIN ---
Joseph was resting in bed when I visited. He shared that he's originally from [place] and has lived a few places in [place] and now lives in [facility] at a private nursing home. Joseph said his left the area to go to a family wedding on Wednesday and she hasn't called. Joseph said he thought he'd hear from here by now, and assumes she knows that he's in the hospital. Joseph was a bit teary at the end of our visit. He said he is grateful knowing that he's not alone and and that the Lord is with him.
--- NOTE | 2024-10-27 13:05 | PGE_ITS ---
Date of Service Date of service: 10/27/24 Time of Service: 13:05 Assessment and Plan Assessment and plan (1) Pneumonia: Status: Acute Assessment and plan: Improving with Ceftriaxone and azithro -check Legionella urinary antigen, still pending -Patient is oxygenating well and hemodynamics stable. 10/27/24 no cbc today. CW rocephin and zmax (2) Toxic metabolic encephalopathy: Status: Acute Assessment and plan: He never had focal neurologic findings. MRI showing nothing acute but did show old cerebellar stroke. 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 He denies chronic balance issues. His LDL is <70 on atorvastatin, h/o CAD. Continue this and ASA. (4) Acute kidney injury: Status: Acute Assessment and plan: A/w pneumonia, hydrate gently IV and po, follow in AM. 10/27/24 Bun/Cr are 22/1.0 currently. CW IVF (5) Hypomagnesemia: Status: Acute Assessment and plan: replaced, follow (6) Hyponatremia: Status: Inactive Assessment and plan: a/w acute pneumonia, mild dehydration. follow. 10/27/24 Resolved (7) DVT prophylaxis: Status: Acute Assessment and plan: enoxaparin Subjective Subjective Interval history since last seen: Pt seen and examined in his room this am. Still complains of cough but im proving. POC d/w pt as well as with bedside nurse during MDR Exam Narrative Exam Narrative: GEN: alert and oriented, NAD. HEENT atraumatic; neck supple; lungs scattered rhonchi; heart RRR; abdomen soft and NT; extremities with trace edema; neuro oriented to name, place, PERRL, EOMI, CN 2-12 intact other than poor healing. motor 5/5 throughout, DTRs 1+ and symmetric. Objective Last Vital Signs Temp 36.5 C 10/27/24 11:36 Pulse 69 10/27/24 11:36 Resp 18 10/27/24 11:36 BP 131/71 10/27/24 11:36 Pulse Ox 94 10/27/24 11:36 Laboratory Results - last 24 hr 10/25/24 10/25/24 10/27/24 15:35 19:21 06:23 Sodium 137 Potassium 3.9 Chloride 102 Carbon Dioxide 28.2 Anion Gap 6.8 BUN 22 H Creatinine 1.0 Est GFR (CKD-EPI 2020) 76.56 Glucose 98 Calcium 8.1 L Magnesium 1.9 Free T4 1.1 Urine Legionella Ag Negative Time Spent with Patient Time Spent with Patient: 35-49 minutes Time was spent: preparing to see the patient(eg.review tests), obtaining and/or reviewing separately otained hiistory, ordering medications,tests, procedures, referring, communicating with other health patient centered care specialist, indepentently interpreting results, counseling the patient and care coordination
--- NOTE | 2024-10-27 14:31 | CMPROGNOTE_ITS ---
Date of service: 10/27/24 Time of Service: 14:31 Care Management Progress Note Progress Note Text Progress Note Text: Joseph was sitting up in his chair when CM met with him. He stated that he is feeling down today because he hasn't heard from his since he has been in the hospital. He reflected on the time he spent in a psychiatric hospital, which he felt was not helpful for him; he has lived at his caregiver's house, [facility], since discharge from that facility. He stated that he has a good relationship with Best, one of the staff members at [facility]'s house. Best will be picking him up upon discharge, as [facility] is currently out of town. Per report, he will likely be ready for discharge in 24-48H. CM contacted Beatriz, Joseph's , and she stated that she would give him a call today; CM transferred the call to M/S in order to connect them on the phone. Joseph expressed interest in talking with a therapist in the community; CM will send a referral to the [facility] at his PCP office. CM will continue to follow. Discharge Potential Discharge Needs: PCP F/U Appt Anticipated Barriers to Discharge: None Identified Patient/Family Education Needs: Review discharge instructions, discuss Ask Me Three Transportation: Private vehicle Plan: Anticipate Joseph will return to his caregiver's home when medically cleared. One of his caregivers, Best, will transport him home via private vehicle when ready. He will follow up with his PCP and discharge plan of care. CM will continue to follow. Social Determinants of Health Screening Will the Patient Participate in the Screening?: Unable to obtain Do you worry about having a steady place to live?: no Problems where you live: no known problems In the past 12 months, have you had to go without electric, gas, oil or water in your home?: choose not to answer Have you or anyone in your house had to go without enough food to eat?: choose not to answer Has lack of transportation kept you from medical appointments or from doing things needed for daily living?: choose not to answer Has anyone in your life made you feel unsafe or unsupported?: choose not to answer How often do you feel lonely or isolated from those around you?: Never Do you speak a language other than [place] at home?: Yes Does the patient want assistance with any of the above?: No Health Related Social Needs Health related social needs: material hardship(utilities) (Z59.12) and education (Z55.6)
[2024-10-27 15:11] VITALS: BP 122/65; PULSE 64; RESP 18; TEMP 36.5; O2SAT 93
[2024-10-27] MEDS: Enoxaparin 40 MG/0.4 ML SYR SC (17:53)
[2024-10-27] MEDS: cefTRIAXone 1 GM/50 ML BAG IVPB (17:53)
[2024-10-27] MEDS: Normal Saline Flush 10 ML SYR IVP (20:26)
[2024-10-27] MEDS: QUEtiapine 100 MG TAB 200 MG PO (20:26)
[2024-10-27] MEDS: Melatonin 3 MG TAB 6 MG PO (20:27)
[2024-10-27 20:35] VITALS: BP 137/73; PULSE 56; RESP 18; TEMP 36.6; O2SAT 95
[2024-10-27] MEDS: AZITHROMYCIN 250 MG in Normal Saline 250 ML IVPB (20:35)
[2024-10-28] MEDS: Acetaminophen 325 MG TAB 650 MG PO ×2 (02:28→08:26)
[2024-10-28] MEDS: LORazepam 0.5 MG TAB PO (02:28)
[2024-10-28 03:28] VITALS: BP 145/85; PULSE 80; RESP 19; TEMP 36.5; O2SAT 93
[2024-10-28 04:12] VITALS: BP 151/89; PULSE 58; RESP 18; TEMP 36.2; O2SAT 94
[2024-10-28 04:26] VITALS: BP 151/89; PULSE 58; RESP 18; TEMP 36.2; O2SAT 94
[2024-10-28 05:26] VITALS: BP 140/84; PULSE 56; RESP 20; TEMP 36; O2SAT 96
[2024-10-28 06:38] VITALS: BP 156/81; PULSE 66; RESP 20; TEMP 36.1; O2SAT 94
[2024-10-28 07:00] LABS: Abs Immature Grans 0.03 10^3/uL (0.0-0.06); Absolute Basophil Count 0.03 10^3/uL (0.0-0.2); Absolute Lymphocyte Count 2.09 10^3/uL (1.2-3.4); Absolute Monocyte Count 0.55 10^3/uL (0.1-0.8); Basophils % 0.8 %; Eosinophils % 2.6 %; HGB 11.8 g/dL (13.5-17.5); Immature Grans % 0.8 %; Lymphocytes % 53.9 %; MCH 29.6 pg (27.0-33.0); MCHC 33.7 % (32.0-36.0); MCV 88 fL (80-95); MPV 10.3 fL (8.0-11.0); Monocytes % 14.2 %; Neutrophils % 27.7 %; Platelet Count 154 10^3/uL (130-400); RBC 3.99 10^6/uL (4.36-5.78); RDW 12.7 % (11.8-14.1); RDW-SD 40.9 fL; WBC 3.88 10^3/uL (4.4-10.8)
[2024-10-28 07:02] LABS: Absolute Neutrophil Count 1.07 10^3/uL (1.2-6.7)
[2024-10-28 07:09] LABS: ALT 18 U/L (16-63); AST 23 U/L (15-37); Albumin 2.8 g/dL (3.4-5.0); Alkaline Phosphatase 71 U/L (46-116); BUN 19 mg/dL (7-18); Bilirubin, Total 0.2 mg/dL (0.2-1.0); CREATININE 1.2 mg/dL (0.70-1.30); Calcium 8.3 mg/dL (8.5-10.1); Chloride 102 mmol/L (98-107); Estimated GFR 61.52 (mL/min/1.73m2); Glucose 92 mg/dL (74-106); Potassium 3.8 mmol/L (3.5-5.1); Sodium 141 mmol/L (136-145); Total Protein 6.3 g/dL (6.4-8.2)
[2024-10-28 07:42] LABS: Diff Comment Agrees w/ Instrument; RBC Morphology Normal
[2024-10-28 08:04] VITALS: BP 145/85; PULSE 80; RESP 19; TEMP 36.5; O2SAT 93
[2024-10-28] MEDS: Divalproex 250 MG TABEC PO ×2 (08:26→13:46)
[2024-10-28] MEDS: Pramipexole 0.25 MG TAB PO (08:27)
[2024-10-28] MEDS: QUEtiapine 100 MG TAB 150 MG PO (08:27)
[2024-10-28] MEDS: Atorvastatin 20 MG TAB PO (08:27)
[2024-10-28] MEDS: Aspirin E.C. 81 MG TABEC PO (08:27)
[2024-10-28] MEDS: Normal Saline Flush 10 ML SYR IVP (08:28)
--- NOTE | 2024-10-28 12:28 | PHA.REVIEW2 ---
Pharmacy Admission Review Admission Clinical Review Admission Pharmacy Review: Palliative care patient (Acute) DVT prophylaxis (Acute) Hypomagnesemia (Acute) Acute kidney injury (Acute) Toxic metabolic encephalopathy (Acute) Pneumonia (Acute) No Known Allergies Allergy (Verified 10/25/24 15:24) Resuscitation Status DNR/DNI Height 5 ft 7 in Weight 67.631 kg Comments Comments/Follow Ups: watch for addition of any other QTc prolonging meds Pharmacy Admission Review Renal Dosing Renal Dosing: BUN 19 mg/dL (7-18) H 10/28/24 06:02 Creatinine 1.2 mg/dL (0.70-1.30) 10/28/24 06:02 Medications needing adjustments: Reviewed (CrCl 47.75 mL/min, BUN decreased from 22, SCr increased from 1) List of meds needing interventions: Current medications are okay Anticoagulation Anticoagulation: Hgb 11.8 g/dL (13.5-17.5) L 10/28/24 06:02 Hct 35.0 % (40.0-50.0) L 10/28/24 06:02 Plt Count 154 10^3/uL (130-400) 10/28/24 06:02 INR 1.1 (0.9-1.1) 10/25/24 15:35 Creatinine 1.2 mg/dL (0.70-1.30) 10/28/24 06:02 DVT Prophylaxis: Reviewed (Hgb decreased from 13.2) Medications: Enoxaparin (40mg daily) Relevant Labs Relevant Labs: Sodium 141 mmol/L (136-145) 10/28/24 06:02 Potassium 3.8 mmol/L (3.5-5.1) 10/28/24 06:02 Chloride 102 mmol/L (98-107) 10/28/24 06:02 Magnesium 1.9 mg/dL 10/27/24 06:23 Electrolytes, C-Reactive P, ESR: Reviewed Cardiac Review Cardiac Review: Troponin I 39 ng/L (<or=76) 10/25/24 16:54 NT-Pro-B Natriuret Pep 1122 pg/mL (<300) H 10/25/24 15:35 Blood Pressure 145/85 0804 Blood Pressure 156/81 0638 Blood Pressure 140/84 0526 Blood Pressure 151/89 0426 Blood Pressure 151/89 0412 Blood Pressure 145/85 0328 BP, HR, EF%: Reviewed (BP WNL) QTc Review QTc: Reviewed (505 from 10/25/24) List meds needing interventions: On quetiapine, watch for addition of any other QTc prolonging meds IV to PO Switch IV Medications: Reviewed (azithromycin and ceftriaxone) Home Meds Home Med List reviewed: Intervened Relevent Home Meds Not ordered & why?: metformin - was held due to imagining done on 10/25. Reached out to provider to see if he wanted this resumed now, waiting to hear back. Current Meds Current Medication Order Review: Intervened Comments: Added IV admission order set Pharmacy Antibiotic Review Relevant Labs: WBC 3.88 10^3/uL (4.4-10.8) L 10/28/24 06:02 Temperature 36.5 C Temperature 36.1 C Temperature 36.0 C Temperature 36.2 C Temperature 36.2 C Temperature 36.5 C Pharmacy Antibiotic Activity: C/S review and Reviewed, no change Comments: Patient is on ceftriaxone and azithromycin, day 3, for pneumonia. No cultures at this time. Comments Comments/Follow Ups: watch for addition of any other QTc prolonging meds
--- NOTE | 2024-10-28 12:47 | DSE_ITS ---
Date of service: 10/28/24 Time of Service: 12:47 DS: Diagnosis Discharge Diagnosis (1) Pneumonia: Status: Acute (2) Palliative care patient: Status: Acute Discharge Plan Disposition Patient Disposition: Home Condition: Stable Discharge Details Reason For Visit: pneumonia, possible tia Admit Date/Time: 10/25/24 19:10 Admit Provider: Osvaldo Polk Attending Provider: Osvaldo Polk Primary Care Provider: Kevin Rosales Hospital Course Hospital Course: 79 male with dementia, seen urgent care today with several days of cough. Urgent Care noted he was leaning to the left and sent him to ER for evaluation of possible stroke. Work up in ER of note for temp to 38.3, white count 4, CXR RUL infiltrate (to my read LLL is more evident). Viral swab triple negative. A possible left pronator drift was reported initially but not later. CTA head and neck showed no brain abnormalities, an old 50% stenosis right ICA. Patient given Rocephin and Zithro. Teleneuro consult obtained, report per ER is that ASA and MRI advised for possible TIA. I was asked to evaluate for admission. Due to the fact that the patient did have some swelling at the urgent care a CVA/TIA workup was initiated with CT being normal and MRI showing abundant bilateral periventricular signal abnormalities as well as 2 small nonacute lacunar infarcts in the left cerebellar hemisphere. Chest x-ray showed right upper lobe pneumonia. In regards to his microbiology no cultures were drawn. In regards to his labs white count was normalized mild anemia was noted and elevated and his BUN to creatinine ratio was also noted. Once the patient was afebrile for over 24 hours with improving lab indices and recommended discharge to which he agreed. Patient be discharged home on zithromax to complete a five day course. Home Meds and New Rx's Prescriptions: New aspirin 81 mg Tablet,Delayed Release (Dr/Ec) 81 mg PO DAILY Qty: 30 0RF azithromycin 250 mg tablet 250 mg PO DAILY 5 Days Qty: 5 0RF Continued (DME) Fitted Briefs Large Misc See Rx Instructions .Route Qty: 32 6RF Rx Instructions: As directed wear at HS PRN pramipexole 0.25 mg tablet 0.25 mg PO DAILY Qty: 30 0RF divalproex 250 mg tablet,delayed release (DR/EC) See Rx Instructions .ROUTE .COMPLEX Qty: 90 4RF Dose Instruction: TAKE ONE TABLET BY MOUTH THREE TIMES A DAY Rx Instructions: TAKE ONE TABLET BY MOUTH THREE TIMES A DAY lorazepam 0.5 mg tablet See Rx Instructions PO BID PRN (Reason: anxiety) Qty: 60 0RF Rx Instructions: orally twice a day PRN; Give one tablet at HS and one additional tablet per day as needed. Palliative care patient. quetiapine 150 mg tablet 150 mg PO QAM Qty: 30 3RF quetiapine 200 mg tablet 200 mg PO QHS Qty: 30 3RF metformin 500 mg tablet 500 mg PO BID melatonin 5 mg capsule 5 mg PO QHS atorvastatin 20 mg tablet 20 mg PO DAILY Qty: 30 0RF Discharge Instructions Referrals: Kevin Rosales AMORTIZATION SCHEDULE CLERK [Primary Care Provider] - (follow up in 3-5 days) Activity:: Activity as Tolerated Equipment/Supplies:: No Equipment Needed Diet:: As Tolerated Discharge Orders Discharge Orders: Discharge Order (Routine); Ordered 10/28/24 Ordered By: Philip Conner DS: Summary Time Spent with Patient providing and/or coordinating discharge services: Greater than 30 minutes Status at Discharge Functional status at discharge: independent ambulation Overall status at discharge: patient is back to baseline Mental Status: mental status grossly normal Speech and Movement: speech and movement normal Mood: congruent mood Affect: normal affect Quality:SDOH Health Related Social Needs: Health related social needs material hardship(utilitie s) (Z59.12), education (Z55.6) Exam Narrative Exam Narrative: GEN: alert and oriented, NAD. HEENT atraumatic; neck supple; lungs scattered rhonchi; heart RRR; abdomen soft and NT; extremities with trace edema; neuro oriented to name, place, PERRL, EOMI, CN 2-12 intact other than poor healing. motor 5/5 throughout, DTRs 1+ and symmetric. Psych Mental Status: mental status grossly normal Speech and Movement: speech and movement normal Mood: congruent mood Affect: normal affect DS: Data Vitals/I&O Vitals and I&O: Vital Signs Temperature 36.5 C 10/28/24 08:04 Temperature Source Temporal Artery Scan 10/28/24 08:04 Pulse 80 10/28/24 08:04 Pulse Rhythm Regular 10/25/24 21:53 Pulse 87 10/25/24 20:31 Respiratory Rate 19 10/28/24 08:04 Blood Pressure 145/85 H 10/28/24 08:04 Blood Pressure Mean 86 10/25/24 20:31 Pulse Oximetry 93 10/28/24 08:04 Oxygen Delivery Method Room Air 10/28/24 08:04 Oxygen Flow Rate 0 10/28/24 08:04 Pain Level 4 10/28/24 08:26 Comment Last set of hourly vitals post fall. No reports of distress at this time 10/28/24 08:04 Intake & Output 10/27/24 10/28/24 10/28/24 23:59 11:59 23:59 Intake Total 390 / 2360 505 / 505 Output Total 625 / 1375 500 / 500 Balance -235 / 985 5 / 5 Intake: IV 300 / 1310 5 / 5 Oral 90 / 1050 500 / 500 Output: Urine 625 / 1375 500 / 500 Other: Urine Color Yellow Yellow Urine Appearance Cloudy Clear Urine Odor Normal Normal Comment saw pt using urinal earlier, not documented unmeasurable, pt voided into toilet. Data Completed and Pending Labs on day of discharge: Labs from last 24 hours 10/28/24 06:02 WBC 3.88 L RBC 3.99 L Hgb 11.8 L Hct 35.0 L MCV 88 MCH 29.6 MCHC 33.7 RDW 12.7 Plt Count 154 MPV 10.3 Immature Gran % 0.8 Neutrophils % 27.7 Lymphocytes % 53.9 Monocytes % 14.2 Eosinophils % 2.6 Basophils % 0.8 Nucleated RBC % 0.0 Absolute Neutrophils 1.07 L Absolute Lymphocytes 2.09 Absolute Monocytes 0.55 Absolute Eosinophils 0.10 Absolute Basophils 0.03 RBC Morphology Normal Sodium 141 Potassium 3.8 Chloride 102 Carbon Dioxide 30.0 Anion Gap 9.0 BUN 19 H Creatinine 1.2 Est GFR (CKD-EPI 2020) 61.52 Glucose 92 Calcium 8.3 L Total Bilirubin 0.2 AST 23 ALT 18 Alkaline Phosphatase 71 Total Protein 6.3 L Albumin 2.8 L PFSH All Active Problems (Updated 10/28/24 @ 12:46 by Philip Conner MD) Palliative care patient (Acute) DVT prophylaxis (Acute) Hypomagnesemia (Acute) Acute kidney injury (Acute) Toxic metabolic encephalopathy (Acute) Pneumonia (Acute) Transient ischemic attack (Acute) Pneumonia (Acute) Lumbar radiculitis (Acute) Lumbar spondylosis (Acute) Lumbar stenosis (Acute) Nocturia (Acute) DJD (degenerative joint disease), lumbar (Acute) Lower back pain (Acute) Urinary urgency (Acute) Urinary frequency (Acute) Urinary incontinence (Acute) Agitation (Acute) Bipolar 1 disorder (Acute) Viral encephalitis (Acute) Left bundle-branch block (Acute) Ventricular ectopy (Acute) Mixed hyperlipidemia (Chronic) Atherosclerosis of [place] coronary artery (Acute) Generalized anxiety disorder (Chronic) Recurrent major depressive disorder (Chronic) RLS (restless legs syndrome) (Acute) Hearing loss (Acute) Insomnia (Acute) Stable angina (Acute) Hypothyroidism (Chronic 12/11/13) Essential hypertension (Acute) Medical History (Updated 10/28/24 @ 12:46 by Philip Conner MD) Cerebellar cerebrovascular accident without late effect Right rotator cuff tear Altered mental status (04/10/17) [facility]; NEG MRI Acute pericarditis (~1969) Mental and behavioral problem Impaired fasting glucose Intertrigo Right-sided chest pain Altered mental status History of behavioral and mental health problems Acute hyponatremia Hypomania Surgical History Status post vasectomy History of arthroscopy of knee History of appendectomy Stent placement 09/10/16-[facility] Family History Mother Diabetes Essential hypertension Father Diabetes Neoplasm PROSTATE Sister Diabetes Neoplasm MULTI-MYELOMA Sister Diabetes Essential hypertension Brother Heart disease Grandfather Neoplasm STOMACH Grandfather Ruptured appendix Daughter Substance use disorder Social History Smoking/Tobacco Use Status: Former Tobacco Use tobacco type: cigarettes Smoking risk assessment performed?: Yes Alcohol Intake: former Drug use: Current Sobriety Substance use type: does not use Adopted: No Caregiver/Support person: Yes Household members: caregiver Housing: other Number of Children: 2 number of grandchildren: 4 Communication Needs: Hard of Hearing and Corrective Lenses Education Level: high school Do you need help understanding health information?: Often current occupation: retired Pets and animals: Yes Sexually active: No Do you think of yourself as: straight/heterosexual Current gender identity: male What is your relationship status?: How often do you talk on the phone with friends or family?: three or more times per week How often do you get together with friends or relatives?: once per week How often do you attend congregation or mormonism services?: decline to answer Do you belong to any clubs or organized social groups?: no Panel score (0-1 are the most socially isolated patients): 2 What type of physical activity do you participate in: none and assisted ambulation Frequency: does not exercise Laxmi/Sabianist: Presybeterian Agree to transfusion: No Seatbelt use: always Drive intox or ride w/intox cdl company driver: No Working smoke detector in home: Yes Fire extinguisher in home: Yes Firearms in home: No Do you feel safe at home: Yes Additional Social history: Live with care provider named Skyla Aden in [place]. but lives apart from his . Was on hospice but discharged due to improvement. Was hospitalized for many months in [facility] during 2022. Discharged from that facility last fall. Had a legal guardian in place in addition to his ; now just his . Is able to give brief short accurate history of recent events. Time Spent with Patient Time Spent with Patient: 45-69 minutes Time was spent: preparing to see the patient(eg.review tests), obtaining and/or reviewing separately otained hiistory, ordering medications,tests, procedures, referring, communicating with other health behavioral health care coordinator, indepentently interpreting results, counseling the patient and care coordination
--- NOTE | 2024-10-28 13:00 | CMDISCH_ITS ---
Date of service: 10/28/24 Time of Service: 13:01 LACE Index Scoring Tool Questions: Length of Stay (in days): 3 Comorbidities: Cerebrovascular Disease (TIA) E.D. Visits: 1 Care Management Discharge Plan Reason for Hospitalization: Pneumonia Discharge Plan: Joseph is discharged home via private vehicle with caregiver. Pt will follow up with his PCP and discharge plan of care as directed. No new services are ordered prior to discharge. Patient/Family Education Needs: Review discharge instructions, limitations and plan to follow up after discharge. Discuss ask me three. SDOH Health Related Social Needs: Health related social needs material hardship(utilitie s) (Z59.12), education (Z55.6)
== END 2024-10-28 14:10 | disposition home or self-care (01) | DRG 193 ==
LOC: ER 18:42 → MS 20:54
PROVIDERS: Family Medicine; Admitting Provider General Practice; Emergency Provider Physician Assistant; PCP Nurse Practitioner Family; Responsible Provider Hospitalist; Visit Provider General Practice
DX: J18.9 Pneumonia, unspecified organism (principal); G92.8 Other toxic encephalopathy; N17.9 Acute kidney failure, unspecified; E87.1 Hypo-osmolality and hyponatremia; G45.9 Transient cerebral ischemic attack, unspecified; E83.42 Hypomagnesemia; Z86.73 Personal history of transient ischemic attack (TIA), and cerebral infarction without residual deficits; E11.9 Type 2 diabetes mellitus without complications; E78.5 Hyperlipidemia, unspecified; I10 Essential (primary) hypertension; Z95.5 Presence of coronary angioplasty implant and graft; G31.09 Other frontotemporal neurocognitive disorder; F02.80 Dementia in other diseases classified elsewhere, unspecified severity, without behavioral disturbance, psychotic disturbance, mood disturbance, and anxiety; Z66 Do not resuscitate; M47.26 Other spondylosis with radiculopathy, lumbar region; M48.061 Spinal stenosis, lumbar region without neurogenic claudication; I44.7 Left bundle-branch block, unspecified; F31.9 Bipolar disorder, unspecified; E78.2 Mixed hyperlipidemia; I25.10 Atherosclerotic heart disease of native coronary artery without angina pectoris; F41.1 Generalized anxiety disorder; G25.81 Restless legs syndrome; E03.9 Hypothyroidism, unspecified; Z51.5 Encounter for palliative care
CPT/HCPCS: 00123; 36415; 36416; 70496; 70498; 80048; 80053; 82962; 87449; 87637; 93005; 96365; 96367; 96368; 97162; 97530; 99285; J1650; 70551; 71046; 81003; 81015; 83735; 83880; 84439; 84443; 84484; 85025; 85610; 85730; 93010; 99222; 99232; 99233; 99239; J0456; J0696; J3475; J3490

== ENCOUNTER 2025-03-22 14:49 | Outpatient (CLI) | payer MEDICARE, SELFPAY ==
--- NOTE | 2025-03-22 07:45 | DI.RAD_ITS ---
Exam(s) XR PAIN CLINIC LUMBAR SP 2V EXAM: XR PAIN CLINIC LUMBAR SP 2V CLINICAL HISTORY: Dx: Lumbar Radiculopathy. TECHNIQUE: Fluoroscopy was provided for the referring physician for guidance with performing pain clinic injection procedure. COMPARISON: No exams were available for comparison FINDINGS: Please see procedure note for details. Fluoro time: 19 seconds RADIATION DOSE DELIVERED: Kar=6.7 mGy
[2025-03-22 14:57] VITALS: BP 134/86; PULSE 92; RESP 19; TEMP 37; O2SAT 96
[2025-03-22 15:26] VITALS: PULSE 126
[2025-03-22 15:30] VITALS: PULSE 134; PULSE 95; RESP 21; O2SAT 96
[2025-03-22 15:36] VITALS: BP 134/109; PULSE 72
--- NOTE | 2025-03-22 15:39 | PDOC.PAIN_ITS ---
Date of service: 03/22/25 Time of Service: 15:39 Pain Managment Procedure Note Procedure Note Procedure Note: PROCEDURE NOTE LUMBAR EPIDURAL STEROID INJECTION Date of Service: March 22, 2025 Patient:Joseph Franz V? Provider: Osvaldo Larose DO, MPH Joseph Cardoso has been referred to the [facility] for a lumbar epidural steroid injection. Pre-operative diagnosis: Lumbosacral Radiculopathy ICD-10 M54.16 Post-operative diagnosis: Same Pre-Procedure Pain: VAS= 6 /10 Comments: He was previously seen in our office and his symptoms remain unchanged. Joseph was interviewed and the medical record was reviewed.? There were no medical, pharmacologic, radiographic or other structural contraindications to attempting fluoroscopically guided Lumbar epidural steroid injection.? Risks, potential side effects, indications, and potential benefits of the procedure were reviewed with Joseph.? Questions and concerns were addressed.? After it was clear that Joseph was fully informed about the procedure, the printed consent form was signed by the patient and myself.? Joseph was placed in the prone position on the fluoroscopy table and automated blood pressure cuff and pulse oximeter applied. The skin entry point for entering/approaching the epidural space for the lumbar epidural steroid injection was marked. Following thorough chlorhexadine preparation of the skin and draping and 1% lidocaine infiltration of the skin entry point and subcutaneous tissues, an 18 gauge Touhy needle was placed and advanced under fluoroscopic guidance and with loss of resistance technique into the L5-S1 epidural space. Needle tip placement and depth were aided and confirmed by fl uoroscopy. There was no paresthesia or return of blood or CSF through the needle. 1 mls of Omnipaque 240 was injected with clear epidural spread confirmed with fluoroscopy. 80 mg of Depo-Medrol was? injected. This was followed by 1 ml of preservative-free normal saline to flush the steroid out of the needle. There was no unusual discomfort expressed by Joseph. The needle was withdrawn without difficulty. (49 mls of Omnipaque was wasted) Joseph was observed and was without hemodynamic, neurologic, or allergic reactions.? Fluoroscopic images were digitally archived. Joseph's vital signs were stable throughout the procedure and were as recorded in nursing records. Follow up plans and appointments were discussed with Joseph. Post procedure instruction was given as documented in nursing records and having met discharge criteria Joseph was discharged from the [facility]. COMMENTS: No apparent complications. Post-procedure pain: VAS= 0/10. Joseph to contact [facility] as needed. If at least 50% improvement in pain and/or function for at least 3 months is achieved, this procedure can be repeated. I personally performed this entire procedure. OSVALDO LAROSE DO, MPH ABPMR-subspecialty board certification in Pain Medicine [facility] Coding Conscious Sedation used for procedure: No CPT Codes: Inj Spine L/S w/Imaging - [id number] ([id number] ~G) Additional Codes: Date of Service (29866) Date of service: 03/22/25 Diagnoses: lumbar radiculopathy
[2025-03-22] MEDS: Epidural Tray 1 EACH MC (15:40)
[2025-03-22] MEDS: methylPREDNISolone ACETATE 80 MG/ML VIAL IJ (15:41)
[2025-03-22] MEDS: Omnipaque 240 MG/ML 50 ML BTL IJ (15:41)
== END 2025-03-22 14:50 | disposition home or self-care (01) ==
LOC: PC 14:50
PROVIDERS: PCP Nurse Practitioner Family; Visit Provider Preventive Medicine Occupational Medicine
DX: M54.50 Low back pain, unspecified (principal); M54.16 Radiculopathy, lumbar region
CPT/HCPCS: 62323; 72100; J1010; Q9967

== ENCOUNTER → 2025-03-26 11:11 | Outpatient (BNVA) | payer MEDICARE, SELFPAY | PROVIDERS: PCP Nurse Practitioner Family; Referring Provider Nurse Practitioner Family; Visit Provider Psychiatry & Neurology Neurology | DX: R41.3 Other amnesia (principal); Z86.61 Personal history of infections of the central nervous system | CPT/HCPCS: 99214 ==

== ENCOUNTER → 2025-08-11 12:45 | Outpatient (CLI) | payer MEDICARE, SELFPAY ==
--- NOTE | 2025-08-11 12:48 | DI.RAD_ITS ---
Exam(s) XR CHEST 2V PA LATERAL EXAM: XR CHEST 2V PA LATERAL CLINICAL HISTORY: eval pathology TECHNIQUE: 2D digital imaging was performed of the chest. Two images were obtained. PA and lateral views were obtained. COMPARISON: CR XR CHEST 2V PA LATERAL from 10/04/2023 CR XR CHEST 2V PA LATERAL from 11/08/[address] CHEST WO from 12/18/2023 CR XR CHEST 2V PA LATERAL from 10/25/2024 FINDINGS: MEDIASTINUM: Normal. HEART: Normal. PULMONARY VASCULATURE: Normal. LUNGS: There is a linear infiltrate in the left lung base which may represent atelectasis or pneumonia. PLEURAL SPACE: There is a small right pleural effusion. BONE:Within normal limits for the patient's age. OTHER FINDINGS:Normal. IMPRESSION: 1. Small right pleural effusion. 2. Left basilar infiltrate which may represent atelectasis or pneumonia. 3. The preliminary [facility] report was reviewed. DATA REPOSITORY: RADIATION DOSE DELIVERED:
--- NOTE | 2025-08-11 14:00 | DI.[facility]_ITS ---
PROCEDURE INFORMATION: Exam: XR Chest Exam date and time: 08/11/2025 12:51 PM Age: 79 years old Clinical indication: Cough TECHNIQUE: Imaging protocol: Radiologic exam of the chest. Views: 2 views. COMPARISON: CR XR CHEST 2V PA LATERAL 12/23/2024 16:46 FINDINGS: Lungs: Low lung volumes. Mild bibasilar reticular markings consistent with atelectasis versus developing infiltrate. Pleural spaces: Mildly blunted right lateral and posterior costophrenic angles. Heart/Mediastinum: Stable cardiomediastinal silhouette. Bones/joints: Degenerative changes in the visualized spine. IMPRESSION: 1. Bibasilar reticular markings consistent with atelectasis or developing infiltrate. 2. Blunted costophrenic angles. Dictated and Authenticated by: Alondra De La Torre MD. Orderin Bob Mcgrath MD
== END ==
LOC: DI 12:47
PROVIDERS: PCP Nurse Practitioner Family; Visit Provider Nurse Practitioner Family
DX: R05.9 Cough, unspecified (principal); R91.8 Other nonspecific abnormal finding of lung field; J90 Pleural effusion, not elsewhere classified
CPT/HCPCS: 71046